=== PATIENT | female | born 1970 | race Caucasian/White ===

== ENCOUNTER → 2017-06-17 10:36 | Outpatient (CLI) | payer MEDICARE, SELFPAY ==
[2017-06-17 11:14] LABS: Absolute Lymphocyte Count 1.11 X10^3/ul (0.83-4.51); Absolute Neutrophil Count 3.6 X10^3/uL (2.0-7.7); Basophil# 0.01 X10^3/uL; Basophil% 0.2 % (0-1); Eosinophil# 0.03 X10^3/uL; Eosinophils% 0.6 % (0-5); Hematocrit 46.7 % (37-47); Hemoglobin 15.1 g/dl (12.0-15.0); Lymphocyte # 1.11 X10^3/ul (4.0); Lymphocyte % 21.1 % (19-41); Mean Corp Hgb Conc 32.3 g/gl (32-36); Mean Corpuscular Hgb 33.2 pg (27.0-32.0); Mean Corpuscular Volume 102.6 fL (81-99); Mean Platelet Vol. 10.3 fl (6.2-12.0); Monocyte# 0.45 X10^3/uL; Monocyte% 8.6 % (0-10); Neutrophil # 3.64 X10^3/uL (2.7-7.7); Neutrophil % 69.3 % (47-70); Platelet Count 195 K/mm3 (150-450); RBC Distribution Width CV 13.2 % (11.6-14.6); RBC Distribution Width SD 49.7 fl (35.1-43.9); Red Blood Count 4.55 M/mm3 (4.2-5.4); White Blood Count 5.3 K/mm3 (4.4-11.0)
[2017-06-17 11:15] LABS: POSITIVE COUNT NO; POSITIVE DIFFERENTIAL NO; POSITIVE MORPHOLOGY NO
[2017-06-17 11:49] LABS: ALB/GLOB Ratio 1.4 RATIO (0.9-2.4); AST(SGOT) 30 U/L (15-37); Alanine Aminotransfer ALT/SGPT 30 U/L (13-56); Albumin, Serum 3.8 g/dL (3.2-5.0); Alkaline Phosphatase 62 U/L (45-117); Anion Gap 3 (5-15); BUN 17 mg/dL (7-18); BUN/Creat Ratio 20.5 RATIO (10-20); Calcium,Total 8.8 mg/dL (8.5-10.1); Chloride 104 mmol/L (98-107); Creatinine, Serum 0.83 mg/dL (0.55-1.02); EST Glomerular Filtration Rate 78 mL/min (>60); Est Glom Filt Rate - Afr Amer 94 mL/min (>60); Ferritin 58 ng/mL (8-252); Globulin 2.8 g/dL (2.2-4.2); Glucose 89 mg/dL (74-106); Iron 67 ug/dL (50-170); Iron Binding Capacity,Total 329 ug/dL (250-450); Potassium 3.8 mmol/L (3.5-5.1); Protein, Total 6.6 g/dL (6.4-8.2); Sodium Level 139 mmol/L (136-145)
== END ==
PROVIDERS: Family Provider Family Medicine; PCP Family Medicine; Visit Provider Internal Medicine Rheumatology
DX: M06.4 Inflammatory polyarthropathy (principal); M35.00 Sjogren syndrome, unspecified; Z79.899 Other long term (current) drug therapy
CPT/HCPCS: 36415; 80053; 82728; 83540; 83550; 85025

== ENCOUNTER → 2017-09-09 08:46 | Outpatient (CLI) | payer MEDICARE, SELFPAY ==
[2017-09-09 09:29] LABS: Absolute Lymphocyte Count 1.17 X10^3/ul (0.83-4.51); Absolute Neutrophil Count 2.5 X10^3/uL (2.0-7.7); Basophil# 0.02 X10^3/uL; Basophil% 0.5 % (0-1); Eosinophil# 0.06 X10^3/uL; Eosinophils% 1.4 % (0-5); Hematocrit 44.4 % (37-47); Hemoglobin 14.8 g/dl (12.0-15.0); Lymphocyte # 1.17 X10^3/ul (4.0); Lymphocyte % 27.5 % (19-41); Mean Corp Hgb Conc 33.3 g/gl (32-36); Mean Corpuscular Hgb 34.6 pg (27.0-32.0); Mean Corpuscular Volume 103.7 fL (81-99); Mean Platelet Vol. 10.5 fl (6.2-12.0); Monocyte# 0.47 X10^3/uL; Neutrophil # 2.53 X10^3/uL (2.7-7.7); Neutrophil % 59.4 % (47-70); Platelet Count 188 K/mm3 (150-450); RBC Distribution Width CV 13.6 % (11.6-14.6); RBC Distribution Width SD 51.7 fl (35.1-43.9); Red Blood Count 4.28 M/mm3 (4.2-5.4); White Blood Count 4.3 K/mm3 (4.4-11.0)
[2017-09-09 09:32] LABS: POSITIVE COUNT NO; POSITIVE DIFFERENTIAL NO; POSITIVE MORPHOLOGY NO
[2017-09-09 10:02] LABS: ALB/GLOB Ratio 1.3 RATIO (0.9-2.4); AST(SGOT) 39 U/L (15-37); Alanine Aminotransfer ALT/SGPT 31 U/L (13-56); Albumin, Serum 3.6 g/dL (3.2-5.0); Alkaline Phosphatase 65 U/L (45-117); Anion Gap 6 (5-15); BUN 19 mg/dL (7-18); Calcium,Total 8.7 mg/dL (8.5-10.1); Chloride 104 mmol/L (98-107); Creatinine, Serum 0.79 mg/dL (0.55-1.02); EST Glomerular Filtration Rate 82 mL/min (>60); Est Glom Filt Rate - Afr Amer 100 mL/min (>60); Globulin 2.8 g/dL (2.2-4.2); Glucose 87 mg/dL (74-106); Potassium 4.1 mmol/L (3.5-5.1); Protein, Total 6.4 g/dL (6.4-8.2); Sodium Level 141 mmol/L (136-145)
== END ==
PROVIDERS: Family Provider Family Medicine; PCP Family Medicine; Visit Provider Internal Medicine Rheumatology
DX: M06.4 Inflammatory polyarthropathy (principal); Z79.899 Other long term (current) drug therapy; M35.00 Sjogren syndrome, unspecified; Z86.73 Personal history of transient ischemic attack (TIA), and cerebral infarction without residual deficits; N20.0 Calculus of kidney; D68.8 Other specified coagulation defects; E87.6 Hypokalemia; Z87.11 Personal history of peptic ulcer disease
CPT/HCPCS: 36415; 80053; 85025

== ENCOUNTER → 2017-11-24 09:19 | Outpatient (CLI) | payer MEDICARE, SELFPAY ==
[2017-11-24 10:26] LABS: Absolute Lymphocyte Count 0.98 X10^3/ul (0.83-4.51); Absolute Neutrophil Count 3.2 X10^3/uL (2.0-7.7); Basophil# 0.01 X10^3/uL; Basophil% 0.2 % (0-1); Eosinophil# 0.07 X10^3/uL; Eosinophils% 1.5 % (0-5); Hematocrit 45.9 % (37-47); Hemoglobin 15.5 g/dl (12.0-15.0); Lymphocyte # 0.98 X10^3/ul (4.0); Lymphocyte % 20.7 % (19-41); Mean Corp Hgb Conc 33.8 g/gl (32-36); Mean Corpuscular Hgb 34.4 pg (27.0-32.0); Mean Platelet Vol. 10.3 fl (6.2-12.0); Monocyte# 0.43 X10^3/uL; Monocyte% 9.1 % (0-10); Neutrophil # 3.24 X10^3/uL (2.7-7.7); Neutrophil % 68.3 % (47-70); Platelet Count 205 K/mm3 (150-450); RBC Distribution Width CV 13.9 % (11.6-14.6); RBC Distribution Width SD 51.9 fl (35.1-43.9); White Blood Count 4.7 K/mm3 (4.4-11.0)
[2017-11-24 10:30] LABS: POSITIVE COUNT NO; POSITIVE DIFFERENTIAL NO; POSITIVE MORPHOLOGY NO
[2017-11-24 10:52] LABS: ALB/GLOB Ratio 1.2 RATIO (0.9-2.4); AST(SGOT) 37 U/L (15-37); Alanine Aminotransfer ALT/SGPT 35 U/L (13-56); Albumin, Serum 3.5 g/dL (3.2-5.0); Alkaline Phosphatase 74 U/L (45-117); Anion Gap 6 (5-15); BUN 22 mg/dL (7-18); BUN/Creat Ratio 26.1 RATIO (10-20); Calcium,Total 8.5 mg/dL (8.5-10.1); Chloride 103 mmol/L (98-107); Creatinine, Serum 0.84 mg/dL (0.55-1.02); EST Glomerular Filtration Rate 76 mL/min (>60); Est Glom Filt Rate - Afr Amer 92 mL/min (>60); Glucose 85 mg/dL (74-106); Potassium 4.3 mmol/L (3.5-5.1); Protein, Total 6.5 g/dL (6.4-8.2); Sodium Level 142 mmol/L (136-145)
== END ==
PROVIDERS: Family Provider Family Medicine; PCP Family Medicine; Visit Provider Internal Medicine Rheumatology
DX: M06.4 Inflammatory polyarthropathy (principal); M35.00 Sjogren syndrome, unspecified; D68.8 Other specified coagulation defects; E87.6 Hypokalemia; N20.0 Calculus of kidney; Z79.899 Other long term (current) drug therapy; Z87.11 Personal history of peptic ulcer disease; Z86.73 Personal history of transient ischemic attack (TIA), and cerebral infarction without residual deficits
CPT/HCPCS: 36415; 80053; 85025

== ENCOUNTER → 2018-03-04 12:40 | Outpatient (CLI) | payer MEDICARE, SELFPAY ==
[2018-03-04 13:31] LABS: Absolute Lymphocyte Count 1.09 X10^3/ul (0.83-4.51); Absolute Neutrophil Count 5.5 X10^3/uL (2.0-7.7); Eosinophil# 0.05 X10^3/uL; Eosinophils% 0.7 % (0-5); Hematocrit 48.1 % (37-47); Hemoglobin 15.6 g/dl (12.0-15.0); Lymphocyte # 1.09 X10^3/ul (4.0); Lymphocyte % 15.2 % (19-41); Mean Corp Hgb Conc 32.4 g/gl (32-36); Mean Corpuscular Hgb 33.5 pg (27.0-32.0); Mean Corpuscular Volume 103.4 fL (81-99); Mean Platelet Vol. 11.2 fl (6.2-12.0); Neutrophil # 5.54 X10^3/uL (2.7-7.7); POSITIVE COUNT NO; POSITIVE DIFFERENTIAL NO; POSITIVE MORPHOLOGY NO; Platelet Count 193 K/mm3 (150-450); RBC Distribution Width SD 52.8 fl (35.1-43.9); Red Blood Count 4.65 M/mm3 (4.2-5.4); White Blood Count 7.2 K/mm3 (4.4-11.0)
[2018-03-04 13:58] LABS: ALB/GLOB Ratio 1.1 RATIO (0.9-2.4); AST(SGOT) 35 U/L (15-37); Alanine Aminotransfer ALT/SGPT 33 U/L (13-56); Albumin, Serum 3.4 g/dL (3.2-5.0); Alkaline Phosphatase 85 U/L (45-117); Anion Gap 4 (5-15); BUN 12 mg/dL (7-18); BUN/Creat Ratio 16.1 RATIO (10-20); Calcium,Total 8.3 mg/dL (8.5-10.1); Chloride 104 mmol/L (98-107); Creatinine, Serum 0.74 mg/dL (0.55-1.02); EST Glomerular Filtration Rate 88 mL/min (>60); Est Glom Filt Rate - Afr Amer 107 mL/min (>60); Glucose 88 mg/dL (74-106); Potassium 4.1 mmol/L (3.5-5.1); Protein, Total 6.4 g/dL (6.4-8.2); Sodium Level 140 mmol/L (136-145)
== END ==
PROVIDERS: Family Provider Family Medicine; PCP Family Medicine; Referring Provider Internal Medicine Rheumatology; Visit Provider Internal Medicine Rheumatology
DX: M06.4 Inflammatory polyarthropathy (principal); M35.00 Sjogren syndrome, unspecified; N20.0 Calculus of kidney; D68.8 Other specified coagulation defects; E87.6 Hypokalemia; Z79.899 Other long term (current) drug therapy; Z87.11 Personal history of peptic ulcer disease; Z86.73 Personal history of transient ischemic attack (TIA), and cerebral infarction without residual deficits
CPT/HCPCS: 36415; 80053; 85025

== ENCOUNTER → 2018-06-01 10:13 | Outpatient (CLI) | payer MEDICARE, SELFPAY ==
[2018-06-01 11:07] LABS: Absolute Lymphocyte Count 1.08 X10^3/ul (0.83-4.51); Absolute Neutrophil Count 4.4 X10^3/uL (2.0-7.7); Basophil# 0.01 X10^3/uL; Basophil% 0.2 % (0-1); Eosinophil# 0.07 X10^3/uL; Eosinophils% 1.2 % (0-5); Hemoglobin 16.4 g/dl (12.0-15.0); Lymphocyte # 1.08 X10^3/ul (4.0); Lymphocyte % 18.1 % (19-41); Mean Corp Hgb Conc 33.5 g/gl (32-36); Mean Corpuscular Hgb 34.2 pg (27.0-32.0); Mean Corpuscular Volume 102.1 fL (81-99); Mean Platelet Vol. 10.6 fl (6.2-12.0); Monocyte# 0.38 X10^3/uL; Monocyte% 6.4 % (0-10); Neutrophil # 4.43 X10^3/uL (2.7-7.7); Neutrophil % 73.9 % (47-70); Platelet Count 172 K/mm3 (150-450); RBC Distribution Width CV 13.4 % (11.6-14.6)
[2018-06-01 11:11] LABS: POSITIVE COUNT NO; POSITIVE DIFFERENTIAL NO; POSITIVE MORPHOLOGY NO
[2018-06-01 11:47] LABS: ALB/GLOB Ratio 1.3 RATIO (0.9-2.4); AST(SGOT) 38 U/L (15-37); Alanine Aminotransfer ALT/SGPT 37 U/L (13-56); Alkaline Phosphatase 72 U/L (45-117); Anion Gap 8 (5-15); BUN 22 mg/dL (7-18); BUN/Creat Ratio 27.3 RATIO (10-20); Calcium,Total 9.1 mg/dL (8.5-10.1); Chloride 102 mmol/L (98-107); Creatinine, Serum 0.81 mg/dL (0.55-1.02); EST Glomerular Filtration Rate 80 mL/min (>60); Est Glom Filt Rate - Afr Amer 97 mL/min (>60); Glucose 94 mg/dL (74-106); Sodium Level 143 mmol/L (136-145)
== END ==
PROVIDERS: Family Provider Family Medicine; PCP Family Medicine; Referring Provider Internal Medicine Rheumatology; Visit Provider Internal Medicine Rheumatology
DX: M06.4 Inflammatory polyarthropathy (principal); M35.00 Sjogren syndrome, unspecified; N20.0 Calculus of kidney; D68.8 Other specified coagulation defects; E87.6 Hypokalemia; Z79.899 Other long term (current) drug therapy; Z87.11 Personal history of peptic ulcer disease; Z86.73 Personal history of transient ischemic attack (TIA), and cerebral infarction without residual deficits
CPT/HCPCS: 36415; 80053; 85025

== ENCOUNTER → 2018-06-24 10:56 | Outpatient (CLI) | payer MEDICARE, SELFPAY ==
[2018-06-24 11:48] LABS: International Normalized Ratio 2.7
== END ==
PROVIDERS: Family Provider Family Medicine; PCP Family Medicine; Referring Provider Family Medicine; Visit Provider Family Medicine
DX: I67.89 Other cerebrovascular disease (principal)
CPT/HCPCS: 36415; 85610

== ENCOUNTER → 2018-08-26 08:40 | Outpatient (CLI) | payer MEDICARE, SELFPAY ==
[2018-08-26 09:55] LABS: Absolute Lymphocyte Count 1.07 X10^3/ul (0.83-4.51); Absolute Neutrophil Count 2.2 X10^3/uL (2.0-7.7); Basophil# 0.01 X10^3/uL; Basophil% 0.3 % (0-1); Eosinophil# 0.11 X10^3/uL; Eosinophils% 2.9 % (0-5); Hematocrit 50.8 % (37-47); Hemoglobin 16.7 g/dl (12.0-15.0); Lymphocyte # 1.07 X10^3/ul (4.0); Lymphocyte % 28.2 % (19-41); Mean Corp Hgb Conc 32.9 g/gl (32-36); Mean Corpuscular Hgb 32.4 pg (27.0-32.0); Mean Corpuscular Volume 98.6 fL (81-99); Mean Platelet Vol. 10.6 fl (6.2-12.0); Monocyte# 0.39 X10^3/uL; Monocyte% 10.3 % (0-10); Neutrophil # 2.21 X10^3/uL (2.7-7.7); Neutrophil % 58.3 % (47-70); POSITIVE COUNT NO; POSITIVE DIFFERENTIAL NO; POSITIVE MORPHOLOGY NO; Platelet Count 173 K/mm3 (150-450); RBC Distribution Width CV 13.2 % (11.6-14.6); RBC Distribution Width SD 47.8 fl (35.1-43.9); Red Blood Count 5.15 M/mm3 (4.2-5.4); White Blood Count 3.8 K/mm3 (4.4-11.0)
[2018-08-26 10:26] LABS: ALB/GLOB Ratio 1.3 RATIO (0.9-2.4); AST(SGOT) 31 U/L (15-37); Alanine Aminotransfer ALT/SGPT 28 U/L (13-56); Albumin, Serum 3.7 g/dL (3.2-5.0); Alkaline Phosphatase 75 U/L (45-117); Anion Gap 3 (5-15); BUN 15 mg/dL (7-18); BUN/Creat Ratio 18.3 RATIO (10-20); Calcium,Total 8.6 mg/dL (8.5-10.1); Chloride 106 mmol/L (98-107); Cholesterol 158 mg/dL (200); Creatinine, Serum 0.82 mg/dL (0.55-1.02); EST Glomerular Filtration Rate 79 mL/min (>60); Est Glom Filt Rate - Afr Amer 95 mL/min (>60); Globulin 2.8 g/dL (2.2-4.2); Glucose 76 mg/dL (74-106); High Density Lipoprotein 60 mg/dL; Potassium 4.3 mmol/L (3.5-5.1); Protein, Total 6.5 g/dL (6.4-8.2); Sodium Level 141 mmol/L (136-145); Triglycerides 83 mg/dL; Very Low Density Lipoprotein 17 mg/dL (5-40)
== END ==
PROVIDERS: Family Provider Family Medicine; PCP Family Medicine; Referring Provider Internal Medicine Rheumatology; Visit Provider Internal Medicine Rheumatology
DX: M06.4 Inflammatory polyarthropathy (principal); M35.00 Sjogren syndrome, unspecified; N18.9 Chronic kidney disease, unspecified; M32.9 Systemic lupus erythematosus, unspecified; M35.9 Systemic involvement of connective tissue, unspecified; D68.8 Other specified coagulation defects; E87.6 Hypokalemia; Z79.899 Other long term (current) drug therapy; Z87.11 Personal history of peptic ulcer disease; Z87.442 Personal history of urinary calculi; Z86.73 Personal history of transient ischemic attack (TIA), and cerebral infarction without residual deficits
CPT/HCPCS: 36415; 80053; 80061; 85025

== ENCOUNTER → 2018-10-02 12:56 | Outpatient (CLI) | payer MEDICARE, SELFPAY ==
--- NOTE | 2018-10-01 14:30 | LES_PTH ---
PATIENT: ERICH ALARCON LOC: [facility] U#:[id number] AGE/SX: 54/F ROOM: RE10/02/[address]: Dr. Jessika Apple MD : 1970 BED: DIS: SPEC #: [id number] RECD: 10/02/18 12:41 STATUS: CARLOS LITTLE #: [id number] RANJEET: 10/01/18 14:[address]: Jessika Apple DEPT: SURGICAL PATHOLOGY RECD BY: Nakita Ching ENTERED: 10/02/18 14:42 SP TYPE: Lesion OTHR DR: Dr. Davion Goldman MD Tissues: Skin of back, NOS Procedures: Surgery Specimen Level IV HEADER OPERATION: Excision skin lesion on back PRE-OP DIAGNOSIS: Skin lesion on back TISSUE SUBMITTED: Skin lesion on back MICROSCOPIC DIAGNOSIS Skin lesion of back, biopsy: Seborrheic keratosis. AM:mayur 10/05/18 MICROSCOPIC DESCRIPTION Slides are reviewed. GROSS DESCRIPTION Received is one container labeled with the patient's name and not further designated. The specimen consists of a piece of vigil-white skin measuring 0.8 x 0.5 cm and up to 0.3 cm in thickness. The skin surface shows a pigmented lesion occupying more than 95% of the skin surface. The specimen is inked and submitted entirely in one cassette. It will be sectioned at the time of embedding. / SJ:mayur 10/02/18 TC:5 [facility]: [id number]
== END ==
PROVIDERS: Family Provider Family Medicine; PCP Family Medicine; Referring Provider Surgery; Visit Provider Surgery
DX: L98.9 Disorder of the skin and subcutaneous tissue, unspecified (principal)
CPT/HCPCS: 88305

== ENCOUNTER → 2018-11-26 12:03 | Outpatient (CLI) | payer MEDICARE, SELFPAY ==
[2018-11-26 13:21] LABS: Absolute Lymphocyte Count 0.98 X10^3/uL (0.83-4.51); Absolute Neutrophil Count 8.5 X10^3/uL (2.0-7.7); Basophil# 0.02 X10^3/uL; Basophil% 0.2 % (0-1); Eosinophil# 0.03 X10^3/uL; Eosinophils% 0.3 % (0-5); Hematocrit 44.8 % (37-47); Hemoglobin 14.9 g/dL (12.0-15.0); Lymphocyte # 0.98 X10^3/ul (4.0); Lymphocyte % 9.6 % (19-41); Mean Corp Hgb Conc 33.3 g/dL (32-36); Mean Corpuscular Hgb 33.6 pg (27.0-32.0); Mean Corpuscular Volume 101.1 fL (81-99); Mean Platelet Vol. 10.4 fl (6.2-12.0); Monocyte# 0.67 X10^3/uL; Monocyte% 6.6 % (0-10); NRBC Flagged by Analyzer 0 % (0-5); Neutrophil # 8.48 X10^3/uL (2.7-7.7); Neutrophil % 82.9 % (47-70); Platelet Count 172 K/mm3 (150-450); RBC Distribution Width CV 13.2 % (11.6-14.6); RBC Distribution Width SD 49.6 fl (35.1-43.9); Red Blood Count 4.43 M/mm3 (4.2-5.4); White Blood Count 10.2 K/mm3 (4.4-11.0)
[2018-11-26 13:47] LABS: ALB/GLOB Ratio 1.2 RATIO (0.9-2.4); AST(SGOT) 33 U/L (15-37); Alanine Aminotransfer ALT/SGPT 27 U/L (13-56); Albumin, Serum 3.4 g/dL (3.2-5.0); Alkaline Phosphatase 65 U/L (45-117); Anion Gap 3 (5-15); BUN 23 mg/dL (7-18); BUN/Creat Ratio 25.7 RATIO (10-20); Calcium,Total 8.7 mg/dL (8.5-10.1); Chloride 105 mmol/L (98-107); EST Glomerular Filtration Rate 71 mL/min (>60); Est Glom Filt Rate - Afr Amer 86 mL/min (>60); Globulin 2.9 g/dL (2.2-4.2); Glucose 91 mg/dL (74-106); Potassium 4.2 mmol/L (3.5-5.1); Protein, Total 6.3 g/dL (6.4-8.2); Sodium Level 139 mmol/L (136-145)
== END ==
PROVIDERS: Family Provider Family Medicine; PCP Family Medicine; Referring Provider Internal Medicine Rheumatology; Visit Provider Internal Medicine Rheumatology
DX: M06.4 Inflammatory polyarthropathy (principal); M35.00 Sjogren syndrome, unspecified; N20.0 Calculus of kidney; E87.6 Hypokalemia; D68.8 Other specified coagulation defects; Z79.899 Other long term (current) drug therapy; Z86.73 Personal history of transient ischemic attack (TIA), and cerebral infarction without residual deficits; Z87.11 Personal history of peptic ulcer disease
CPT/HCPCS: 36415; 80053; 85025

== ENCOUNTER → 2018-12-30 09:55 | Outpatient (CLI) | payer MEDICARE, SELFPAY ==
[2018-12-30 11:19] LABS: Vitamin D,25 Hydroxy 33.5 ng/mL (29.95-100.01)
[2018-12-30 11:21] LABS: T3 Uptake 33 % (30-39); T4 Total, Thyroxin 10.2 ug/dL (4.8-13.9); T7 / Free Thyroxin Index 3.4 (1.4-4.5); Thyroid Stim Hormone (TSH) 0.69 uIU/mL (0.358-3.74)
[2018-12-31 13:04] LABS: Thyroid Peroxidase AB 12 IU/mL (0-34)
== END ==
PROVIDERS: Family Provider Family Medicine; PCP Family Medicine; Referring Provider Obstetrics & Gynecology; Visit Provider Obstetrics & Gynecology
DX: N95.1 Menopausal and female climacteric states (principal); R53.81 Other malaise; R53.83 Other fatigue
CPT/HCPCS: 36415; 82306; 84436; 84443; 84479; 86376

== ENCOUNTER 2019-02-08 13:42 | Day surgery (SDC) | payer MEDICARE, SELFPAY ==
--- NOTE | 2019-02-07 09:47 | PCM.HP.BLA ---
History and Physical Date of Admission: 02/08/19 Magalie Strauss 1970 ? ? REFERRING PHYSICIAN: Davion Goldman MD ? CHIEF COMPLAINT: Abdominal Pain ? HPI: The patient is a 48 year old female presents with right upper quadrant and epigastric abdominal pain. This had been going on intermittently for years, however, in the past few weeks, it has become more constant and more severe. Lately, she has noted left upper quadrant abdominal pain as well. No aggravating factors. Denies fevers. ? US RUQ 01/12/19 IMPRESSION: Gallbladder wall thickening which is most pronounced in the fundus. ?Stone and sludge within it. ?Adenomyomatosis is a diagnostic possibility. ?HIDA scan may be helpful for further evaluation of clinically indicated. If no additional imaging at this time, follow up sonographically in 3-6 Months. Right nephrolithiasis. ? NM hepatobiliary scan 01/22/19 IMPRESSION: 1. Gallbladder is visualized. ?Patent cystic and common bile ducts. No scintigraphic evidence of ?acute cholecystitis. 2. ?Decreased gallbladder ejection fraction suggestive of chronic cholecystitis/gallbladder dyskinesia. ? Patient has nausea but denies emesis. She does take omeprazole on a regular basis and denies acid indigestion or reflux with this. ? ? PAST MEDICAL HISTORY ? Chronic kidney disease, stage I ? ? Dysmenorrhea ? ? Excessive or frequent menstruation ? ? Heavy periods ? Hypopotassemia ? ? Non-celiac gluten sensitivity ? ? PMH - PAST MEDICAL HISTORY OF ? ? stroke ? PMH - PAST MEDICAL HISTORY OF ? ? uterine fibroids ? Sicca syndrome (HCC) ? ? PAST SURGICAL HISTORY ? COLONOSCOPY ? 04/04 ? REPORTEDLY NEGATIVE FOR SOURCE OF HEM + STOOLS ? HYSTEROSCOPY BX W/WO D&C ? 07/06 ? for menorrhagia, fibroids ? LIGATE FALLOPIAN TUBE ? 1994 ? PAST SURGICAL HISTORY OF ? 1993 and 2001 ? SINUS SURGERY X 2 (1st in [place], 2nd in [place]) ? PAST SURGICAL HISTORY OF ? 2006 ? LIP BX, NEG FOR SJOGREN'S, but clinically positive ? SKIN BIOPSY HX ? ? ? back ? THERMAL ENDOMETRIAL ABLATION ? 08/2010 ? TOTAL ABDOM HYSTERECTOMY ? 10/11/10 ? KELECHI ? ? Current Outpatient Medications: enoxaparin (LOVENOX) 30 mg/0.3 mL injection Inject 0.3 mL subcutaneously every 12 hours for 3 days. warfarin (COUMADIN) 5 mg tablet 15 mg Friday, 10 mg all other days or as directed warfarin (COUMADIN) 1 mg tablet 15 mg Friday, 10 mg all other days or as directed warfarin (COUMADIN) 2 mg tablet 15 mg Friday, 10 mg all other days or as directed warfarin (COUMADIN) 5 mg tablet 15 mg Friday, 10 mg all other days or as directed cholecalciferol, Vitamin D3, (VITAMIN D3) 50,000 unit cap capsule Take 1 capsule by mouth one time a week. estradiol (VIVELLE-DOT) 0.05 mg/24 hr Apply 1 Patch as directed twice a week. TWICE WEEKLY mirabegron (MYRBETRIQ) 25 mg Tb24 Take 1 tablet by mouth once daily. spironolactone (ALDACTONE) 25 mg tablet Take 1 tablet by mouth once daily. Hydrochlorothiazide 12.5 mg capsule Take 1 capsule by mouth once daily. oxybutynin (DITROPAN) 5 mg tablet Take 1 tablet by mouth twice daily. SUMAtriptan (IMITREX) 50 mg tablet Take 1 tablet by mouth as needed. Levocetirizine (XYZAL) 5 mg tablet Take 5 mg by mouth. potassium citrate ER (UROCIT-K) 10 mEq (1,080 mg) TbER Take 6 tablets by mouth once daily. omeprazole (PRILOSEC) 20 mg capsule Take 1 capsule by mouth once daily. potassium chloride ER (K-DUR, KLOR-CON) 20 mEq tablet Take 1 tablet by mouth twice daily. methotrexate 2.5 mg tablet Take 8 tablets po one time only for 1 dose, Friday fluticasone (FLONASE) 50 mcg/actuation nasal spray Use 2 Sprays in each nostril twice daily as needed. Rinse mouth after use. leucovorin calcium 10 mg tablet Take 2.5 tablets by mouth every Friday. prednisoLONE acetate (PRED FORTE, ECONOPRED PLUS) 1 % ophthalmic suspension Use 1 Drop in both eyes four times daily. GLUCOSAMINE HCL/GLUC WIGGINS (GLUCOSAMINE COMPLEX ORAL) Take by mouth. aspirin, enteric coated 81 mg ORAL EC tablet Take 1 tablet by mouth once daily. hydroxychloroquine sulfate(PLAQUENIL 200 MG TAB) Take one(1) tablet two(2) times daily. FOLIC ACID 1 MG TAB Take one(1) tablet two(2) times daily. ascorbic acid(VITAMIN C 500 MG TAB) Take one(1) tablet two(2) times daily. calcium carbonate/vitamin d3(CALCIUM 600 WITH VITAMIN D3 600 MG (1,500)-200 UNIT TAB) Take one(1) tablet daily. multivitamins(DAILY MULTIPLE TAB) Take one(1) tablet daily. docusate sodium(STOOL SOFTENER 100 MG CAP) Take one(1) tablet two(2) times daily. ? ? ALLERGIES: Bee Sting; Amoxicillin; Augmentin [Amoxicillin-Pot Clavulanate]; Bactrim [Sulfamethoxazole-Trimethoprim]; Black Pepper; Ceclor [Cefaclor]; Cipro [Ciprofloxacin]; Codeine; Erythromycin; Grass Pollen; Horse Hair And Dander; Ivory Soap [Soap]; Latex; Mold; Silicone; Vancomycin; Wheat ? PERSONAL HISTORY: Social History Socioeconomic History Marital status: Spouse name: lashonda Number of children: 0 Years of education: 16 TOB use - denies ? FAMILY HISTORY ? Stroke Father ? ? PFO ? Heart Father ? ? rhythm/EP issues ? Hypertension Father ? ? Lipids Mother ? ? other (MS [Other]) Mother ? ? Diabetes Maternal Aunt ? ? Stroke Other ? ? MULTIPLE ON Her FATHER'S FAMILY, with strokes followed by Heart Failure ? other (Other [Other]) Mother ? ? Autoimmune disorder ? other (polymylagia [Other]) Mother ? ? ? REVIEW OF SYSTEMS: ?General:???The patient NOTES fatigue, denies weight loss, denies weight gain, NOTES feeling hot, and NOTES feelings of cold. ?Eyes: ?The patient denies glaucoma, denies eye injury/surgery, does not wear glasses or contacts. ?Ear/Nose/Throat: ?The patient NOTES allergies, denies hayfever, denies ear infections, and NOTES bloody noses. ?Cardiovascular: ?The patient denies chest pain, denies heart disease, denies high blood pressure,denies cardiac stent, denies prior heart attack, denies irregular heart beat, denies high cholesterol, ?denies poor circulation, denies heart failure, other cardiac issues, NOTES claudication, NOTES cold feet, denies peripheral arterial stent. ?Respiratory: ?The patient denies tuberculosis, denies pneumonia, denies frequent cough, denies pulmonary embolism, denies shortness of breath, and denies coughing up blood. ?Gastrointestinal: ?The patient denies difficulty swallowing, denies acid reflux, denies ulcers, denies vomiting, denies jaundice/hepatitis, denies gallbladder problems, denies black or tarry stools, denies hemorrhoids, denies bleeding from rectum, denies diverticulitis, NOTES constipation, denies diarrhea, denies loss of stool control, and denies hernias. ?Kidney/Bladder: ?The patient NOTES kidney stones, NOTES urine infections, and NOTES bloody urine. ?Skin: ?The patient denies a history of skin cancer, denies bleeding/changing moles, and denies a history of skin rash. ?Neurologic: ?The patient denies a history of epilepsy/convulsions, NOTES headaches, denies head/spinal injuries, and NOTES stroke/TIA. ?Psychiatric: ?The patient denies psychiatric medications, denies depression, and denies voices, denies substance abuse. ?Endocrine: ?The patient denies thyroid disorders, denies diabetes, and denies hormonal problems. ?Hematologic: ?The patient NOTES a history of bruising, NOTES bleeding, and denies anemia, denies blood clots. ?Infections: ?The patient denies a history of measles and mumps, denies rheumatic fever, and denies sexually transmitted diseases. ?Musculoskeletal: ?The patient denies back pain/injury, denies back problems, denies sciatica, denies knee/foot trouble, NOTES arthritis, or denies gout. ? PHYSICAL EXAMINATION: General: The patient is 48 year old female, well nourished, well hydrated in no acute distress. The patient is oriented to time, place, and person. VITALS: Blood pressure 114/60, pulse 74, temperature 36.4 ?C (97.5 ?F), temperature source Temporal Artery, resp. rate 16, height 170.2 cm (5' 7), weight 69.4 kg (153 lb), last menstrual period 09/15/2010, SpO2 97 %. Body mass index is 23.96 kg/m?. Head ? Normocephalic. EOM intact with sclera clear and no icterus noted. Mouth with mucus membranes moist. Neck - supple with no jugular venous distention noted. Trachea is midline. No masses noted. Lungs ? clear to auscultation. Normal breath sounds. No rales/rhonchi/wheezing noted. No labored breathing noted, such as retractions. No cough heard. Heart ? normal S1 and S2 auscultated. No rubs/clicks/murmurs noted. Regular rate. Abdomen ? soft and benign. Normal bowel sounds, no peritoneal signs. No abdominal bruits noted. No distention noted. No masses noted. Extremities ? no calf tenderness noted. No pitting edema noted. Skin ? normal skin integrity. Neurological ? gait normal, no focal deficits noted. Psych ? calm and appropriate, RADIOLOGIC STUDIES: As Noted ? ? IMPRESSION: abdominal pain as above, cholelithiasis with probable cholecystitis ? PLAN: I have discussed the above with the patient and her who is present with her. I have offered laparoscopic cholecystectomy, possible cholangiograms. I have explained the procedure to the patient. I have counseled the patient as to the risks of the procedure, including but not limited to: infection, bleeding, injury to any blood vessels/nerves, scar tissue, injury to any intrabdominal organs, injury to bowel/bladder, injury to the common bile duct/biliary tree, bile leakage, intraabdominal abscess/bleeding, hernias at incisional sites, wound infections, complications of anesthesia, etc. ? the patient understands. The patient wishes to proceed. I have answered all questions to the patient?s satisfaction and the patient has no further questions. . Diagnoses: (K80.10) Calculus of gallbladder with chronic cholecystitis without obstruction (primary encounter diagnosis) (Z79.01) Anticoagulated on Coumadin (D68.59) Hypercoagulable state (HCC) Return to Clinic: The patient is instructed to follow-up with me after the procedure.
[2019-02-08] VITALS (8 sets, daily range): BP systolic 83–126; BP diastolic 45–54; PULSE 65–91; RESP 16; TEMP 36.6–37.3; O2SAT 95–100; BMI 23.7
--- NOTE | 2019-02-08 14:02 | EKG12_ITS ---
Test Reason : PRE-OP Blood Pressure : / mmHG Vent. Rate : 063 BPM Atrial Rate : 063 BPM P-R Int : 120 ms QRS Dur : 074 ms QT Int : 444 ms P-R-T Axes : 070 047 049 degrees QTc Int : 454 ms Normal sinus rhythm with sinus arrhythmia Normal ECG When compared with ECG of 21-MAY-2011 00:44, No significant change was found Confirmed by FIONA BLANCO ([id number]), digital editor CHARITY ORELLANA ([id number]) on 02/12/2019 10:27:29 AM Referred By: Jessika Apple Confirmed By:FIONA BLANCO
[2019-02-08] MEDS: Lactated Ringers 1,000 ML 75 ML IV (14:49)
--- NOTE | 2019-02-08 15:15 | GALL_PTH ---
PATIENT: ERICH ALARCON [place] [facility] [place][id number] AGE/SX: 48/F ROOM: RE02/08/[address]: Dr. Jessika Apple MD : 1970 BED: DIS: 02/08/2019 SPEC #: [id number] RECD: 02/09/19 08:42 STATUS: CARLOS LITTLE #: [id number] RANJEET: 02/08/19 15:[address]: Jessika Apple DEPT: SURGICAL PATHOLOGY RECD BY: Cash Gil ENTERED: 02/09/19 10:02 SP TYPE: ROBB SOTELO DR: Dr. Davion Goldman MD Tissues: Gallbladder, NOS Procedures: Surgery Specimen Level III HEADER OPERATION: Laparoscopic cholecystectomy with IOC PRE-OP DIAGNOSIS: Abdominal pain; cholelithiasis with probable cholecystitis TISSUE SUBMITTED: Gallbladder MICROSCOPIC DIAGNOSIS Gallbladder, cholecystectomy: Chronic cholecystitis with Rokitansky-Aschoff sinuses. AM:mayur 02/10/19 MICROSCOPIC DESCRIPTION Slides are reviewed. GROSS DESCRIPTION Received is one container labeled with the patient's name and designated gallbladder. The specimen consists of a gallbladder measuring 7 x 3 x 2.5 cm. The external surface is smooth and glistening. Focally, it is granular, hemorrhagic and contains cautery artifact. The lumen of the gallbladder contains yellow-green mucoid bile and no calculi. The mucosa is bile-stained and without any mass lesions. The gallbladder wall averages 0.2 cm in thickness and is free of mass lesions. Director Patient Financial Services sections of the gallbladder and the cystic duct are submitted in one cassette. / AM:mayur 02/09/19 TC:3 CPT: 49332
--- NOTE | 2019-02-08 15:45 | PCM.OPRPT ---
Report of Operation Date of Procedure: 02/08/19 Pre-Operative Diagnosis: cholelithiasis Post-Operative Diagnosis: cholelithiasis, chronic cholecystitis Surgery/Procedure Performed:: laparoscopic cholecystectomy with cholangiograms Description of Surgical Findings:: intraoperative cholangiograms - traditional chinese herbalist: Rhona Luis Type of Anesthesia:: General Anesthesiologist: Lisset Mcclellan Specimen's removed: gallbladder and contents Estimated Blood Loss (mL): < 10 ml Fluids Replaced: 1000 ml RL Description of Procedure: After informed consent was given, the patient was brought to the Operating Room. Appropriate time out protocol was followed. She was then placed in the supine position. The patient was then placed under general endotracheal anesthesia. The abdomen was then prepped with a sterile surgical skin preparation and sterile surgical drapes were placed. The infraumbilical skin fold was grasped with penetrating clamps and the skin and subcutaneous tissues were infiltrated with 0.5% marcaine with epinephrine. A transverse skin incision was then made with a 15 blade scalpel. The anterior abdominal wall was elevated and a Veress needle was carefully inserted into the intraabdominal cavity. It was checked to be in the proper position with a normal saline drop test. A CO2 pneumoperitoneum was then created. Once this was achieved, then the Veress needle was removed and an 11mm trocar was placed in its stead. A 10mm laparoscope was then inserted into the trocar and careful attention was directed to the intraabdominal contents. There was no evidence of injury to any intraabdominal organs from insertion of the Veress needle or the trocar. Under direct visualization, a 5mm subxiphoid trocar and two lateral 5mm right subcostal trocars were placed. The skin and subcutaneous tissues at these sites were infiltrated with 0.5% marcaine with epinephrine prior to placement of these trocars. Attention was then directed to the right upper quadrant of the abdomen. Graspers were placed in the lateral trocars to grasp the distal aspect of the gallbladder and direct it cephalad and to grasp the gallbladder at Garcia?s pouch and direct it laterally. Dissection then began on the proximal gallbladder continuing down to the area of the triangle of Calot to bluntly dissect out the cystic duct. The neck of the gallbladder was identified and blunt dissection continued to dissect out a segment of the cystic duct. A clip was then placed on the neck of the gallbladder. A small ductotomy was then made. A Ranfac catheter was brought in through a separate skin incision and placed into the cystic duct. An intraoperative cholangiogram was performed under fluoroscopy. The xray revealed no lesions in the common bile duct, arborization of the biliary tree, and good flow into the duodenum. The Ranfac catheter was then removed and two clips were placed proximal to the ductotomy and the cystic duct was then transected. The cystic artery was visualized and bluntly isolated and then two clips were placed proximally and one clip distally and then it was transected between the proximal and distal clips. The gallbladder was then from the liver bed using electrocautery and thus able to be brought out of the umbilical port. It was then forwarded to pathology for analysis. The liver bed was carefully examined. There was no evidence of bile leakage or bleeding. The cystic duct stump and cystic artery stump had their clips intact and there was no evidence of bile leakage or bleeding. The remainder of the abdomen was grossly normal. The CO2 was released and all trocars removed intact. The periumbilical fascia was approximated with a sicchy-[id number]-[id number] 0 vicryl suture. All skin incision were closed with 4-0 monocryl in a subdermal fashion. Cavilol and Steristrips were used to reinforce the skin closure. Sterile dressings were applied to all wounds. The patient was extubated and brought to the Recovery Room in stable condition. - Complications none noted - Admit VTE Documentation VTE Present on Admission: Yes VTE Mechan Device Prophylaxis: SCD's
--- NOTE | 2019-02-08 16:00 | RAD_ITS ---
STUDY: INTRAOPERATIVE CHOLANGIOGRAM. REASON FOR EXAM: Female, 48 years old. Laparoscopic cholecystectomy. RADIATION DOSAGE (If Supplied By Facility): CTDIvol = ( ) mGy, DLP = ( ) mGycm. Individualized dose optimization techniques were used for this CT.? FLUOROSCOPY TIME (if supplied): ( 11 seconds ) minutes/seconds TECHNIQUE: An intraoperative carotid mammogram was performed by the surgeon. A cine loop was submitted for interpretation. COMPARISON: None. FINDINGS: The common bile duct is not dilated. No intraluminal filling defect is seen. There is free flow of contrast into the duodenum. RAD/Cholangiogram/ O R,Initial IMPRESSION: Unremarkable intraoperative cholangiogram. Electronically Signed: Girma Jean-Baptiste, at 8:15 EDT , Service support ,
[2019-02-08 16:26] LABS: Prothrombin Time Fingerstick 13.9 SEC (11.9-14.4)
[2019-02-08] MEDS: Bupiv/Epi 0.5% Mpf 30 ML Vial (16:55)
--- NOTE | 2019-02-08 17:07 | DCINST_ITS ---
Discharge Diet: No Restrictions Discharge Activity: Return to Normal Activity, May not drive while taking narcotic pain medications. Lifting Restrictions: no lifting greater than 20 pounds for two weeks Call your doctor if your incision/area has: Continuous Slow Oozing, Foul Smelling Discharge Call your doctor if you observe: Fever of 101 or Higher Additional Dressing/Incision Instructions:: Leave dressings in place. May get wet in shower. Do not scrub on dressings. Do not soak - no tub baths/swimming Allergies/Adverse Reactions: Allergies amoxicillin Allergy (Verified 02/05/19 09:09) Hives bee venom protein (honey bee) Allergy (Verified 02/05/19 09:09) Hives black pepper Allergy (Verified 02/05/19 09:09) Food Allergy cefaclor [From Ceclor] Allergy (Verified 02/05/19 09:09) Hives ciprofloxacin [From Cipro] Allergy (Verified 02/05/19 09:09) Hives clavulanic acid [From Augmentin] Allergy (Verified 02/05/19 09:09) Hives dog dander Allergy (Verified 02/05/19 09:09) Itching erythromycin base Allergy (Verified 02/05/19 09:09) Hives grass pollen Allergy (Verified 02/05/19 09:09) Itching horse dander Allergy (Verified 02/05/19 09:09) Itching latex Allergy (Verified 02/05/19 09:09) Rash silicone Allergy (Verified 02/05/19 09:09) Other second degree tate sulfamethoxazole [From Bactrim] Allergy (Verified 02/05/19 09:09) Swelling trimethoprim [From Bactrim] Allergy (Verified 02/05/19 09:09) Swelling vancomycin Allergy (Verified 02/05/19 09:09) Shortness of breath wheat Allergy (Verified 02/05/19 09:10) Food Allergy ivory soap Allergy (Uncoded 02/05/19 09:10) Angioedema Medications to take at Discharge Aspirin [Aspir 81] 81 mg PO DAILY 02/05/19 Calcium Carbonate/Vitamin D3 [Calcium 600-Vit D3 500 Softgel] 1 ea PO DAILY 02/05/19 Enoxaparin Sodium [Lovenox] 30 mg SQ BID 02/05/19 Ergocalciferol [Vitamin D] 50,000 unit PO Q7D 02/05/19 Estradiol [Vivelle-Dot, Estraderm] 0.05 mg TRANSDERM. .2X/WEEK 02/05/19 Folic Acid 1 mg PO BID 02/05/19 Hydrochlorothiazide 12.5 mg PO DAILY 02/05/19 Hydroxychloroquine Sulfate [Plaquenil] 200 mg PO BID 02/05/19 Levocetirizine Dihydrochloride [Xyzal] 5 mg PO DAILY 02/05/19 Methotrexate Sodium [Methotrexate] 20 mg PO WIGGINS 02/05/19 Multivit,Calc,Mins/Iron/Folic [Women's Daily Formula Caplet] 1 ea PO DAILY 02/05/19 Omeprazole [Prilosec] 20 mg PO QHS 02/05/19 Oxybutynin [Ditropan] 5 mg PO BID 02/05/19 Potassium Chloride [K-Dur] 20 meq PO BID 02/05/19 Potassium Citrate [Urocit-K] 3 tab PO BID 02/05/19 Spironolactone [Aldactone] 25 mg PO DAILY 02/05/19 Warfarin [Coumadin ([facility])] 10 mg PO SUMOTUWETHFR 02/05/19 Warfarin [Coumadin ([facility])] 15 mg PO SA 02/05/19 leucovorin tablet 10 mg PO MO 02/05/19 Hydrocodone Bitart/Apap 5-325 [[place] 5MG-325MG] 1 tab PO Q8H PRN PRN 5 Days #15 tab 02/08/19 The following prescriptions were given: Hydrocodone Bitart/Apap 5-325 [[place] 5MG-325MG] 1 tab PO Q8H PRN PRN 5 Days #15 tab PRN Reason: Pain Prescription Printed Primary Care Physician: Davion Goldman MD [Primary Care Provider] - Test Results: Test results from this visit will be discussed in further detail at your follow- up appointment, if applicable. Please Follow Up With: Jessika Apple MD - call When: to be seen in 7-10 days, please call for date and time, thanks
[2019-02-08] MEDS: proMETHazine 25 MG/ML Syringe 12.5 MG IV (17:35)
== END 2019-02-08 20:55 | disposition home or self-care (01) ==
LOC: SDC 13:54 → AC 13:57
PROVIDERS: Family Provider Family Medicine; PCP Family Medicine; Referring Provider Surgery; Visit Provider Surgery
PROC: (CPT 47610; principal; 2019-02-08 14:55)
DX: K80.10 Calculus of gallbladder with chronic cholecystitis without obstruction (principal); K82.8 Other specified diseases of gallbladder; D68.59 Other primary thrombophilia; Q61.5 Medullary cystic kidney; I69.354 Hemiplegia and hemiparesis following cerebral infarction affecting left non-dominant side; I69.311 Memory deficit following cerebral infarction; N18.1 Chronic kidney disease, stage 1; M35.00 Sjogren syndrome, unspecified; K90.41 Non-celiac gluten sensitivity; E87.6 Hypokalemia; K21.9 Gastro-esophageal reflux disease without esophagitis; Z79.899 Other long term (current) drug therapy; Z79.01 Long term (current) use of anticoagulants; Z79.82 Long term (current) use of aspirin; Z88.5 Allergy status to narcotic agent; Z88.1 Allergy status to other antibiotic agents; Z88.0 Allergy status to penicillin; Z88.2 Allergy status to sulfonamides
CPT/HCPCS: 00790; 47563; 36416; 74300; 76000; 85610; 88304; 93005; J7120; J2405

== ENCOUNTER → 2019-02-24 08:13 | Outpatient (CLI) | payer MEDICARE, SELFPAY ==
[2019-02-08 13:45] VITALS: BMI 23.7
[2019-02-24 10:24] LABS: Absolute Lymphocyte Count 1.12 X10^3/uL (0.83-4.51); Absolute Neutrophil Count 5.2 X10^3/uL (2.0-7.7); Basophil# 0.02 X10^3/uL; Basophil% 0.3 % (0-1); Eosinophil# 0.08 X10^3/uL; Eosinophils% 1.1 % (0-5); Hematocrit 46.7 % (37-47); Hemoglobin 15.4 g/dL (12.0-15.0); Lymphocyte # 1.12 X10^3/ul (4.0); Lymphocyte % 16.1 % (19-41); Mean Corpuscular Hgb 33.4 pg (27.0-32.0); Mean Corpuscular Volume 101.3 fL (81-99); Mean Platelet Vol. 10.5 fl (6.2-12.0); Monocyte# 0.57 X10^3/uL; Monocyte% 8.2 % (0-10); NRBC Flagged by Analyzer 0 % (0-5); Neutrophil # 5.16 X10^3/uL (2.7-7.7); Platelet Count 228 K/mm3 (150-450); RBC Distribution Width CV 12.9 % (11.6-14.6); Red Blood Count 4.61 M/mm3 (4.2-5.4)
[2019-02-24 10:57] LABS: ALB/GLOB Ratio 1.1 RATIO (0.9-2.4); AST(SGOT) 28 U/L (15-37); Alanine Aminotransfer ALT/SGPT 31 U/L (13-56); Albumin, Serum 3.4 g/dL (3.2-5.0); Alkaline Phosphatase 69 U/L (45-117); Anion Gap 4 (5-15); BUN 22 mg/dL (7-18); BUN/Creat Ratio 26.2 RATIO (10-20); Calcium,Total 8.7 mg/dL (8.5-10.1); Chloride 104 mmol/L (98-107); Creatinine, Serum 0.84 mg/dL (0.55-1.02); EST Glomerular Filtration Rate 76 mL/min (>60); Est Glom Filt Rate - Afr Amer 93 mL/min (>60); Glucose 72 mg/dL (74-106); Potassium 4.4 mmol/L (3.5-5.1); Protein, Total 6.4 g/dL (6.4-8.2); Sodium Level 141 mmol/L (136-145)
== END ==
PROVIDERS: Family Provider Family Medicine; PCP Family Medicine; Referring Provider Internal Medicine Rheumatology; Visit Provider Internal Medicine Rheumatology
DX: M06.4 Inflammatory polyarthropathy (principal); M35.00 Sjogren syndrome, unspecified; N20.0 Calculus of kidney; D68.8 Other specified coagulation defects; E87.6 Hypokalemia; Z79.899 Other long term (current) drug therapy; Z87.11 Personal history of peptic ulcer disease; Z86.73 Personal history of transient ischemic attack (TIA), and cerebral infarction without residual deficits
CPT/HCPCS: 36415; 80053; 85025

== ENCOUNTER → 2019-05-19 09:05 | Outpatient (CLI) | payer MEDICARE, SELFPAY ==
[2019-02-08 13:45] VITALS: BMI 23.7
[2019-05-19 09:51] LABS: Absolute Lymphocyte Count 1.34 X10^3/uL (0.83-4.51); Basophil# 0.02 X10^3/uL; Basophil% 0.3 % (0-1); Eosinophil# 0.07 X10^3/uL; Eosinophils% 1.2 % (0-5); Hematocrit 47.8 % (37-47); Hemoglobin 15.7 g/dL (12.0-15.0); Lymphocyte # 1.34 X10^3/ul (4.0); Lymphocyte % 22.1 % (19-41); Mean Corp Hgb Conc 32.8 g/dL (32-36); Mean Corpuscular Hgb 33.6 pg (27.0-32.0); Mean Corpuscular Volume 102.4 fL (81-99); Mean Platelet Vol. 10.3 fl (6.2-12.0); Monocyte# 0.59 X10^3/uL; Monocyte% 9.8 % (0-10); NRBC Flagged by Analyzer 0 % (0-5); Neutrophil # 4.01 X10^3/uL (2.7-7.7); Neutrophil % 66.3 % (47-70); Platelet Count 189 K/mm3 (150-450); RBC Distribution Width CV 13.2 % (11.6-14.6); Red Blood Count 4.67 M/mm3 (4.2-5.4); White Blood Count 6.1 K/mm3 (4.4-11.0)
[2019-05-19 10:34] LABS: ALB/GLOB Ratio 1.2 RATIO (0.9-2.4); AST(SGOT) 33 U/L (15-37); Alanine Aminotransfer ALT/SGPT 34 U/L (13-56); Albumin, Serum 3.6 g/dL (3.2-5.0); Alkaline Phosphatase 72 U/L (45-117); Anion Gap 1 (5-15); BUN 19 mg/dL (7-18); BUN/Creat Ratio 20.1 RATIO (10-20); Calcium,Total 9.2 mg/dL (8.5-10.1); Chloride 107 mmol/L (98-107); Creatinine, Serum 0.94 mg/dL (0.55-1.02); EST Glomerular Filtration Rate 67 mL/min (>60); Est Glom Filt Rate - Afr Amer 81 mL/min (>60); Globulin 2.9 g/dL (2.2-4.2); Glucose 85 mg/dL (74-106); Potassium 3.9 mmol/L (3.5-5.1); Protein, Total 6.5 g/dL (6.4-8.2); Sodium Level 141 mmol/L (136-145)
== END ==
PROVIDERS: PCP Family Medicine; Referring Provider Internal Medicine Rheumatology; Visit Provider Internal Medicine Rheumatology
DX: M06.4 Inflammatory polyarthropathy (principal); M35.00 Sjogren syndrome, unspecified; N20.0 Calculus of kidney; D68.8 Other specified coagulation defects; E87.6 Hypokalemia; Z87.11 Personal history of peptic ulcer disease; Z86.73 Personal history of transient ischemic attack (TIA), and cerebral infarction without residual deficits
CPT/HCPCS: 36415; 80053; 85025

== ENCOUNTER → 2019-05-28 12:36 | Outpatient (CLI) | payer MEDICARE, SELFPAY ==
[2019-02-08 13:45] VITALS: BMI 23.7
--- NOTE | 2019-05-28 12:38 | CT_ITS ---
STUDY: CT ABDOMEN AND PELVIS WITH CONTRAST REASON FOR EXAM: Female, 49 years old. LLQ PAIN X 1 YEAR. PRIOR PARTIAL HYSTERECTOMY AND CHOLECYSTECTOMY. ? KIDNEY STONE RADIATION DOSAGE (If Supplied By Facility): CTDIvol = ( 9.73 ) mGy, DLP = ( 455.73 ) mGycm TECHNIQUE: Transaxial images were obtained from the dome of the diaphragm to the symphysis pubis without oral contrast. IV 100mL Isovue-300 was administered. Sagittal and coronal images were reconstructed. Individualized dose optimization techniques were used for this CT. COMPARISON: Comparison is made with prior study dated October 19, 2010. FINDINGS: The visualized lung bases are unremarkable. The visualized portions of the heart are within normal limits. Normal liver. The patient is status post cholecystectomy. Normal spleen. Normal pancreas. Normal bilateral adrenal glands. Normal right kidney. Normal left kidney. There is a small hiatal hernia. Normal small intestine. The large amount of fecal material is seen in the colon. The patient is status post appendectomy. Normal abdominal aorta. Normal inferior vena cava. Normal retroperitoneum. Normal urinary bladder. There is absence of the uterus consistent with a prior hysterectomy. Normal abdominal wall. Normal osseous structures. Minimal levoscoliosis. CT/Abdomen/Pelvis WITH Contrast IMPRESSION: Large amount of fecal material is seen in the colon. Status post cholecystectomy and hysterectomy. Electronically Signed: Girma Jean-Baptiste, at 14:47 EST , Service support ,
== END ==
LOC: CT 12:37
PROVIDERS: PCP Family Medicine; Referring Provider Family Medicine; Visit Provider Family Medicine
DX: N20.0 Calculus of kidney (principal); R10.12 Left upper quadrant pain
CPT/HCPCS: 74177; Q9967

== ENCOUNTER → 2019-08-20 14:11 | Outpatient (CLI) | payer MEDICARE, SELFPAY ==
[2019-02-08 13:45] VITALS: BMI 23.7
[2019-08-20 15:21] LABS: Absolute Lymphocyte Count 1.56 X10^3/uL (0.83-4.51); Absolute Neutrophil Count 4.3 X10^3/uL (2.0-7.7); Basophil# 0.03 X10^3/uL; Basophil% 0.5 % (0-1); Eosinophil# 0.08 X10^3/uL; Eosinophils% 1.2 % (0-5); Hematocrit 47.9 % (37-47); Hemoglobin 15.7 g/dL (12.0-15.0); Lymphocyte # 1.56 X10^3/ul (4.0); Mean Corp Hgb Conc 32.8 g/dL (32-36); Mean Corpuscular Volume 100.6 fL (81-99); Mean Platelet Vol. 10.1 fl (6.2-12.0); Monocyte# 0.51 X10^3/uL; Monocyte% 7.9 % (0-10); NRBC Flagged by Analyzer 0 % (0-5); Neutrophil # 4.29 X10^3/uL (2.7-7.7); Neutrophil % 66.1 % (47-70); Platelet Count 206 K/mm3 (150-450); RBC Distribution Width CV 13.3 % (11.6-14.6); RBC Distribution Width SD 49.3 fl (35.1-43.9); Red Blood Count 4.76 M/mm3 (4.2-5.4); White Blood Count 6.5 K/mm3 (4.4-11.0)
[2019-08-20 15:31] LABS: ALB/GLOB Ratio 1.3 RATIO (0.9-2.4); AST(SGOT) 32 U/L (15-37); Alanine Aminotransfer ALT/SGPT 31 U/L (13-56); Albumin, Serum 3.9 g/dL (3.2-5.0); Alkaline Phosphatase 67 U/L (45-117); Anion Gap 4 (5-15); BUN 15 mg/dL (7-18); BUN/Creat Ratio 16.3 RATIO (10-20); Calcium,Total 9.4 mg/dL (8.5-10.1); Chloride 105 mmol/L (98-107); Creatinine, Serum 0.92 mg/dL (0.55-1.02); EST Glomerular Filtration Rate 69 mL/min (>60); Est Glom Filt Rate - Afr Amer 83 mL/min (>60); Glucose 93 mg/dL (74-106); Potassium 3.8 mmol/L (3.5-5.1); Protein, Total 6.9 g/dL (6.4-8.2); Sodium Level 142 mmol/L (136-145)
== END ==
PROVIDERS: PCP Family Medicine; Referring Provider Internal Medicine Rheumatology; Visit Provider Internal Medicine Rheumatology
DX: M06.4 Inflammatory polyarthropathy (principal); M35.00 Sjogren syndrome, unspecified; N20.0 Calculus of kidney; D68.8 Other specified coagulation defects; E87.6 Hypokalemia; Z79.899 Other long term (current) drug therapy; Z87.11 Personal history of peptic ulcer disease; Z86.73 Personal history of transient ischemic attack (TIA), and cerebral infarction without residual deficits
CPT/HCPCS: 36415; 80053; 85025

== ENCOUNTER → 2019-11-15 16:47 | Outpatient (CLI) | payer MEDICARE, SELFPAY ==
[2019-02-08 13:45] VITALS: BMI 23.7
--- NOTE | 2019-11-15 16:55 | RAD_ITS ---
STUDY: X-RAY CHEST REASON FOR EXAM: Female, 49 years old. Chest pain. Dyspnea on exertion. Coping symptoms on June 05, 2019 on going heaviness in the center of the chest. Shortness of breath. TECHNIQUE: PA and lateral views of the chest. COMPARISON: May 21, 2011. FINDINGS: The lungs are clear and expanded. There is no demonstrated pleural abnormality. Normal size heart. Normal mediastinum and kristy. Normal visualized pulmonary arteries. Normal visualized aortic arch and descending thoracic aorta. There are mild degenerative changes of the thoracic spine. Normal visualized ribs, clavicles, and shoulders. There is no demonstrated abnormality of the visualized soft tissue structures of the upper abdomen. RAD/Chest PA and Lateral IMPRESSION: No acute cardiopulmonary disease. Electronically Signed: Fadi Huynh DO at 23:55 EDT Tel [phone], Service support ,
== END ==
PROVIDERS: PCP Family Medicine; Referring Provider Family Medicine; Visit Provider Family Medicine
DX: R07.9 Chest pain, unspecified (principal); R06.00 Dyspnea, unspecified
CPT/HCPCS: 71046

== ENCOUNTER → 2019-11-17 12:25 | Outpatient (CLI) | payer MEDICARE, SELFPAY ==
[2019-02-08 13:45] VITALS: BMI 23.7
[2019-11-17 13:12] LABS: Absolute Lymphocyte Count 1.61 X10^3/uL (0.83-4.51); Absolute Neutrophil Count 3.8 X10^3/uL (2.0-7.7); Basophil# 0.02 X10^3/uL; Basophil% 0.3 % (0-1); Eosinophil# 0.07 X10^3/uL; Eosinophils% 1.2 % (0-5); Hemoglobin 15.7 g/dL (12.0-15.0); Lymphocyte # 1.61 X10^3/ul (4.0); Lymphocyte % 26.7 % (19-41); Mean Corp Hgb Conc 33.4 g/dL (32-36); Mean Corpuscular Volume 101.7 fL (81-99); Mean Platelet Vol. 10.6 fl (6.2-12.0); Monocyte# 0.53 X10^3/uL; Monocyte% 8.8 % (0-10); NRBC Flagged by Analyzer 0 % (0-5); Neutrophil # 3.78 X10^3/uL (2.7-7.7); Neutrophil % 62.7 % (47-70); Platelet Count 203 K/mm3 (150-450); RBC Distribution Width CV 12.4 % (11.6-14.6); RBC Distribution Width SD 46.7 fl (35.1-43.9); Red Blood Count 4.62 M/mm3 (4.2-5.4)
[2019-11-17 14:05] LABS: ALB/GLOB Ratio 1.2 RATIO (0.9-2.4); AST(SGOT) 32 U/L (15-37); Alanine Aminotransfer ALT/SGPT 32 U/L (13-56); Albumin, Serum 3.7 g/dL (3.2-5.0); Alkaline Phosphatase 70 U/L (45-117); Anion Gap 3 (5-15); BUN 16 mg/dL (7-18); BUN/Creat Ratio 16.9 RATIO (10-20); Calcium,Total 8.8 mg/dL (8.5-10.1); Chloride 104 mmol/L (98-107); Creatinine, Serum 0.94 mg/dL (0.55-1.02); EST Glomerular Filtration Rate 66 mL/min (>60); Est Glom Filt Rate - Afr Amer 80 mL/min (>60); Glucose 101 mg/dL (74-106); Potassium 3.7 mmol/L (3.5-5.1); Protein, Total 6.7 g/dL (6.4-8.2); Sodium Level 139 mmol/L (136-145)
== END ==
PROVIDERS: PCP Family Medicine; Referring Provider Internal Medicine Rheumatology; Visit Provider Internal Medicine Rheumatology
DX: M06.4 Inflammatory polyarthropathy (principal); M35.00 Sjogren syndrome, unspecified; N20.0 Calculus of kidney; D68.8 Other specified coagulation defects; E87.6 Hypokalemia; Z79.899 Other long term (current) drug therapy; Z87.11 Personal history of peptic ulcer disease; Z86.73 Personal history of transient ischemic attack (TIA), and cerebral infarction without residual deficits
CPT/HCPCS: 36415; 80053; 85025

== ENCOUNTER 2019-11-22 13:40 | Emergency (ER) | payer MEDICARE, SELFPAY ==
[2019-02-08 13:45] VITALS: BMI 23.7
[2019-11-22 13:41] VITALS: BP 115/70; PULSE 70; RESP 15; TEMP 36.7; O2SAT 97; BMI 23.5
--- NOTE | 2019-11-22 14:48 | CT_ITS ---
STUDY: CTA CHEST REASON FOR EXAM: Female, 49 years old. CHEST PAIN, CALF PAIN, SOB, COUGH, RECENT LD TRAVEL, SURG-UTERUS REMOVED 10-11-10, LIZZETTE RADIATION DOSAGE (If Supplied By Facility): CTDIvol = ( 10.7 ) mGy, DLP = ( 245.38 ) mGycm TECHNIQUE: The examination was performed with the intravenous administration of 100ML ISOVUE 370. Post-processing of the angiographic images was performed, with multiplanar reformation and 3D reconstruction. Individualized dose optimization techniques were used for this CT. COMPARISON: Comparison is made with prior study dated 10-19-10. FINDINGS: Normal enhancement of the main pulmonary artery and right and left pulmonary arteries. Normal enhancement of the bilateral peripheral pulmonary arteries. There is no demonstrated pulmonary embolism. Normal thoracic aorta and visualized great vessels. There is no demonstrated aortic dissection. Normal heart and pericardium. Normal mediastinum. Normal hilar regions. Normal visualized trachea and bronchi. The lungs are well expanded. Normal pulmonary parenchyma. Normal pleura. Normal chest wall structures. There are degenerative changes of thoracic spine. Normal visualized upper abdomen. CT/CTA Chest W/WO Contrast IMPRESSION: Normal CTA chest examination, without a demonstrated pulmonary embolism or arterial dissection. Electronically Signed: Girma Jean-Baptiste, at 15:58 EDT , Service support ,
--- NOTE | 2019-11-22 14:48 | EKG12_ITS ---
Test Reason : PAIN INLEG Blood Pressure : / mmHG Vent. Rate : 059 BPM Atrial Rate : 059 BPM P-R Int : 124 ms QRS Dur : 080 ms QT Int : 450 ms P-R-T Axes : 066 042 053 degrees QTc Int : 445 ms Sinus bradycardia Otherwise normal ECG Confirmed by MARY ALICE CHA, DMITRY ([id number]), writer editor CLAUDIO MOON ([id number]) on 11/24/2019 12:37:28 PM Referred By: EULA Confirmed By:DMITRY WHEAT MD
--- NOTE | 2019-11-22 14:50 | VDLE_ITS ---
Reason For Study: Swelling RIGHT GSV is normal. CFV is compressible, spontaneous, phasic, competent and demonstrates normal augmentation. FV is compressible, spontaneous, phasic, competent and demonstrates normal augmentation. POP V is compressible, spontaneous, phasic, competent and demonstrates normal augmentation. T/P Trunk is compressible. PTV is compressible. RT PerV is compressible. Procedure Exam performed portable in ED. A preliminary report was called and/or faxed to [facility]. Interpretation Summary There is no evidence of right lower extremity deep vein thrombosis. Right great saphenous vein appears patent and compressible segmentally. Ordering Physician: Celso Gómez Referring Physician: MD Susi Davion Performed By: Margie Hernandez RVT
[2019-11-22] MEDS: 0.9% Normal Saline 1,000 ML 1000 ML IV (15:13)
[2019-11-22 15:15] VITALS: O2SAT 100
[2019-11-22 15:19] LABS: Absolute Lymphocyte Count 1.38 X10^3/uL (0.83-4.51); Absolute Neutrophil Count 3.9 X10^3/uL (2.0-7.7); Basophil# 0.02 X10^3/uL; Basophil% 0.3 % (0-1); Eosinophil# 0.08 X10^3/uL; Eosinophils% 1.4 % (0-5); Hematocrit 53.4 % (37-47); Hemoglobin 17.9 g/dL (12.0-15.0); Lymphocyte # 1.38 X10^3/ul (4.0); Lymphocyte % 23.5 % (19-41); Mean Corp Hgb Conc 33.5 g/dL (32-36); Mean Corpuscular Hgb 33.5 pg (27.0-32.0); Mean Corpuscular Volume 99.8 fL (81-99); Mean Platelet Vol. 10.3 fl (6.2-12.0); Monocyte# 0.46 X10^3/uL; Monocyte% 7.8 % (0-10); NRBC Flagged by Analyzer 0 % (0-5); Neutrophil # 3.92 X10^3/uL (2.7-7.7); Neutrophil % 66.8 % (47-70); Platelet Count 205 K/mm3 (150-450); RBC Distribution Width CV 12.4 % (11.6-14.6); RBC Distribution Width SD 45.8 fl (35.1-43.9); Red Blood Count 5.35 M/mm3 (4.2-5.4); White Blood Count 5.9 K/mm3 (4.4-11.0)
--- NOTE | 2019-11-22 15:20 | ED.DCSUM_ITS ---
History of Present Illness Chief Complaint: General Illness Narrative: 49-year-old female presenting with chest pain, shortness of breath, leg swelling. This is a chronic issue. She states she has had current constant chest pain for over a month. She states is worse in the morning. She also feels short of breath and has a cough at times. She states that her bilateral legs swell worse in the morning. She states that she has unilateral leg swelling on the right which is worse after recent trip to [place]. She states she has an unknown clotting disorder which cannot be diagnosed. She is on Coumadin and maintains an INR of 2-3 to prevent blood clot. She states she has had multiple blood clots. She states she had a stroke when she was in her 20s due to this diagnosis. She is concerned today that she has a DVT in her right leg. Past Medical History - Allergies and Home Meds Allergies/Adverse Reactions: Allergies amoxicillin Allergy (Verified 11/22/19 13:48) Hives bee venom protein (honey bee) Allergy (Verified 11/22/19 13:48) Hives black pepper Allergy (Verified 11/22/19 13:48) Food Allergy cefaclor [From Ceclor] Allergy (Verified 11/22/19 13:48) Hives ciprofloxacin [From Cipro] Allergy (Verified 11/22/19 13:48) Hives clavulanic acid [From Augmentin] Allergy (Verified 11/22/19 13:48) Hives dog dander Allergy (Verified 11/22/19 13:48) Itching erythromycin base Allergy (Verified 11/22/19 13:48) Hives grass pollen Allergy (Verified 11/22/19 13:48) Itching horse dander Allergy (Verified 11/22/19 13:48) Itching latex Allergy (Verified 11/22/19 13:48) Rash silicone Allergy (Verified 11/22/19 13:48) Other second degree tate sulfamethoxazole [From Bactrim] Allergy (Verified 11/22/19 13:48) Swelling trimethoprim [From Bactrim] Allergy (Verified 11/22/19 13:48) Swelling vancomycin Allergy (Verified 11/22/19 13:48) Shortness of breath wheat Allergy (Verified 11/22/19 13:48) Food Allergy ivory soap Allergy (Uncoded 11/22/19 13:48) Angioedema Primary Care Physician: Davion Goldman MD [Primary Care Provider] - Prior records reviewed: Yes Surgical History: noncontributory Smoking Status: Never smoker Review of Systems General: Denies: Chills, Fever, Sweats Eyes: Denies: Visual changes - bilaterally, Diplopia ENT: Denies: Rhinorrhea, Sore throat Cardiovascular: Reports: Chest pain. Denies: Palpitations Respiratory: Reports: Dyspnea, Cough. Denies: Dyspnea on exertion Gastrointestinal: Denies: Abdominal pain, Nausea, Vomiting, Diarrhea, Melena, Hematochezia Genitourinary: Denies: Dysuria, Hematuria, Frequency Musculoskeletal: Reports: Swelling - Lateral leg swelling with right greater than left. Denies: Back pain, Extremity Pain Skin: Denies: Rash, Wounds Neurological: Denies: Headache, Weakness, Numbness Physical Exam Vital Signs/Narrative: Vital Signs Temp Pulse Resp BP Pulse Ox 11/22/19 15:15 100 11/22/19 13:41 98.0 F 70 15 115/70 97 General: Well nourished, Well developed, No Acute Distress Head: Normocephalic, Atraumatic Eyes: Perrl, EOMI ENT: Moist mucous membranes, No rhinorrhea Neck: Supple, Nontender Cardiovascular: Regular rate, Regular rhythm, No murmurs Respiratory: No distress, CTA bilaterally, Chest nontender Abdomen: Soft, Nontender Back: Nontender, Normal Inspection Extremities: Tenderness - Patient has tenderness to palpation of the right calf. The right calf compartments are soft. There is no cords palpated. Negative Homans sign. There is not a appreciable difference between the size of the left and the right leg objectively. Both lower extremities are neurovascularly intact. Skin: Normal color, No rash Neurological: Alert, Oriented x3, Cranial nerves II-XII grossly intact, Normal Strength, Normal Sensation Psychological: Normal affect, Normal Mood Diagnostic/Tx/Re-eval Clinical Impression(s) from Imaging Studies Chest CTA 11/22/19 14:48 IMPRESSION: Normal CTA chest examination, without a demonstrated pulmonary embolism or arterial dissection. Electronically Signed: Girma Jean-Baptiste, at 15:58 EDT , Service support , Laboratory Data 11/22/19 11/22/1920 15:10 15:10 15:10 WBC 5.9 RBC 5.35 Hgb 17.9 H Hct 53.4 H MCV 99.8 H MCH 33.5 H MCHC 33.5 RDW Std Deviation 45.8 H RDW Coeff of Jossie 12.4 Plt Count 205 MPV 10.3 Immature Gran % (Auto) 0.200 Neut % (Auto) 66.8 Lymph % (Auto) 23.5 [place] % (Auto) 7.8 Eos % (Auto) 1.4 Baso % (Auto) 0.3 Absolute Neuts (auto) 3.9 Absolute Lymphs (auto) 1.38 Nucleated RBC % 0 PT 25.0 H INR 2.3 Sodium 140 Potassium 3.5 Chloride 102 Carbon Dioxide 34.0 H Anion Gap 4 L BUN 17 Creatinine 0.91 Estim Creat Clear Calc 71.92 Est GFR (MDRD) Af Amer 84 Est GFR (MDRD) Non-Af 69 BUN/Creatinine Ratio 18.7 Glucose 86 Calcium 9.3 Troponin I < 0.015 - Rhythm Strip Rhythm Strip: Sinus Rhythm Rate: 59 - EKG Initial EKG Interpretation: Sinus Rhythm, Sinus Bradycardia - Medical Decision Making Given the patient's complaints and clotting disorder I did get a venous duplex of the right lower extremity which was negative. Her blood work was all normal with exception of an elevated hemoglobin. She does not appear to be dehydrated. Electrolytes are normal. Troponin is negative after a month of constant chest pain so I do not believe this is ACS. EKG is sinus rhythm without signs of ischemia. CTA of the chest is negative for acute process. Patient counseled that she should follow-up for her echocardiogram tomorrow and her pulmonary function testing next week. She is given return precautions. Patient stable for discharge. Impression 1 chest pain 2. Right leg swelling 3. Shortness of breath ED Disposition - Plan for ED Patient: Disposition: Home or Assisted Living Diagnosis: Chest pain Instructions: ED Peripheral Edema, Unilateral Referrals: Davion Goldman MD [Primary Care Provider] -
[2019-11-22 15:39] LABS: Anion Gap 4 (5-15); BUN 17 mg/dL (7-18); BUN/Creat Ratio 18.7 RATIO (10-20); Calcium,Total 9.3 mg/dL (8.5-10.1); Chloride 102 mmol/L (98-107); Creatinine, Serum 0.91 mg/dL (0.55-1.02); EST Glomerular Filtration Rate 69 mL/min (>60); Est Glom Filt Rate - Afr Amer 84 mL/min (>60); Estimated Creatinine Clearance 71.92 ml/min; Glucose 86 mg/dL (74-106); International Normalized Ratio 2.3; Potassium 3.5 mmol/L (3.5-5.1); Sodium Level 140 mmol/L (136-145)
[2019-11-22 17:11] VITALS: BP 107/60; PULSE 63; RESP 14; O2SAT 100
== END 2019-11-22 17:11 | disposition home or self-care (01) ==
PROVIDERS: Emergency Provider Student in an Organized Health Care Education/Training Program; PCP Family Medicine
DX: R07.9 Chest pain, unspecified (principal); M79.89 Other specified soft tissue disorders; R06.02 Shortness of breath; D68.9 Coagulation defect, unspecified; Z79.01 Long term (current) use of anticoagulants; Z79.82 Long term (current) use of aspirin; Z79.899 Other long term (current) drug therapy; Z86.718 Personal history of other venous thrombosis and embolism; Z86.73 Personal history of transient ischemic attack (TIA), and cerebral infarction without residual deficits
CPT/HCPCS: 71275; 80048; 84484; 85025; 85610; 93005; 93971; 96360; 99284; J7030; Q9967

== ENCOUNTER → 2019-11-23 12:52 | Outpatient (CLI) | payer MEDICARE, SELFPAY ==
[2019-02-08 13:45] VITALS: BMI 23.7
[2019-11-22 13:41] VITALS: BMI 23.5
--- NOTE | 2019-11-23 12:58 | ECHOD_ITS ---
Reason For Study: CHEST PAIN Procedure This was a 2D Doppler, Color Flow transthoracic echocardiogram. The exam was of adequate technical quality. Exam performed in department. Left Ventricle Normal LV size. Left ventricular systolic function is normal. The estimated ejection fraction is 60 %. Transmitral doppler flow suggestive of impaired relaxation of left ventricle. No regional wall motion abnormalities noted. Right Ventricle Normal RV size. Normal systolic function. Atria Normal left atrium. Normal right atrium. No doppler evidence for ASD. Mitral Valve There is no mitral annular calcification. Mild diffuse mitral valve thickening. Trivial mitral valve insufficiency. Tricuspid Valve Normal tricuspid valve. Trivial tricuspid valve insufficiency. Aortic Valve Trisinus/trileaflet aortic valve. Normal aortic valve. Trivial aortic valve insufficiency. Pulmonic Valve The pulmonic valve is not well visualized. Great Vessels Normal sized aortic root. Pericardium/Pleural No pericardial effusion. MMode/2D Measurements & Calculations LVIDd: 4.7 cm IVSd: 0.73 cm Ao root diam: 3.2 cm LVIDs: 3.1 cm LVPWd: 0.73 cm RVDd: 3.4 cm FS: 33.8 % LAV(MOD-bp): 46.0 ml LA A4 area: 19.3 cm2 LA dimension(2D): 3.4 cm LAV(MOD-bp) Indexed: 25.7 ml/m2 LAV(MOD-sp2): 33.7 ml LAV(MOD-sp4): 54.9 ml RA A4 area: 13.5 cm2 Time Measurements MV dec time: 0.32 sec Doppler Measurements & Calculations MV E max naseem: 50.5 cm/sec Lat Peak E' Naseem: 15.3 cm/sec Med Peak E' Naseem: 9.9 cm/sec MV A max naseem: 65.0 cm/sec E/E' lat: 3.3 E/E' med: 5.1 MV E/A: 0.78 Ao V2 max: 142.6 cm/sec LV V1 max: 113.0 cm/sec PA V2 max: 111.5 cm/sec Ao max P.1 mmHg LV V1 max P.1 mmHg Interpretation Summary Left ventricular systolic function is normal. The estimated ejection fraction is 60 %. Mild diffuse mitral valve thickening. Trivial mitral valve insufficiency. Trivial tricuspid valve insufficiency. Trivial aortic valve insufficiency. Transmitral doppler flow suggestive of impaired relaxation of left ventricle Ordering Physician: Davion Goldman Referring Physician: Davion Goldman Performed By: Alexia Huddleston, RADHA, RVT
== END ==
PROVIDERS: PCP Family Medicine; Referring Provider Family Medicine; Visit Provider Family Medicine
DX: R07.9 Chest pain, unspecified (principal); R06.00 Dyspnea, unspecified
CPT/HCPCS: 93306

== ENCOUNTER → 2019-11-30 13:01 | Outpatient (CLI) | payer MEDICARE, SELFPAY ==
[2019-11-22 13:41] VITALS: BMI 23.5
[2019-11-30 13:59] LABS: Erythrocyte Sedimentation Rate < 1 mm/hr (0-30)
[2019-11-30 14:06] LABS: CRP < 2.90 mg/L (0.0-3.0)
[2019-12-01 14:42] LABS: ANTINUCLEAR ANTIBODIES DIRECT Negative (Negative)
== END ==
PROVIDERS: PCP Family Medicine; Referring Provider Internal Medicine Pulmonary Disease; Visit Provider Internal Medicine Pulmonary Disease
DX: R09.1 Pleurisy (principal)
CPT/HCPCS: 36415; 85652; 86038; 86140

== ENCOUNTER → 2020-02-03 13:14 | Outpatient (CLI) | payer MEDICARE, SELFPAY ==
[2020-02-03 14:13] LABS: Absolute Neutrophil Count 4.6 X10^3/uL (2.0-7.7); Basophil# 0.02 X10^3/uL; Basophil% 0.3 % (0-1); Eosinophil# 0.03 X10^3/uL; Eosinophils% 0.5 % (0-5); Hematocrit 45.8 % (37-47); Hemoglobin 15.1 g/dL (12.0-15.0); Lymphocyte % 19.4 % (19-41); Mean Corpuscular Hgb 34.2 pg (27.0-32.0); Mean Corpuscular Volume 103.6 fL (81-99); Mean Platelet Vol. 10.9 fl (6.2-12.0); Monocyte# 0.37 X10^3/uL; NRBC Flagged by Analyzer 0 % (0-5); Neutrophil # 4.55 X10^3/uL (2.7-7.7); Neutrophil % 73.6 % (47-70); Platelet Count 191 K/mm3 (150-450); RBC Distribution Width CV 13.4 % (11.6-14.6); RBC Distribution Width SD 51.5 fl (35.1-43.9); Red Blood Count 4.42 M/mm3 (4.2-5.4); White Blood Count 6.2 K/mm3 (4.4-11.0)
[2020-02-03 14:34] LABS: ALB/GLOB Ratio 1.3 RATIO (0.9-2.4); AST(SGOT) 32 U/L (15-37); Alanine Aminotransfer ALT/SGPT 34 U/L (13-56); Albumin, Serum 3.7 g/dL (3.2-5.0); Alkaline Phosphatase 63 U/L (45-117); Anion Gap 3 (5-15); BUN 17 mg/dL (7-18); BUN/Creat Ratio 17.1 RATIO (10-20); Calcium,Total 8.9 mg/dL (8.5-10.1); Chloride 105 mmol/L (98-107); Creatinine, Serum 0.99 mg/dL (0.55-1.02); EST Glomerular Filtration Rate 63 mL/min (>60); Est Glom Filt Rate - Afr Amer 76 mL/min (>60); Globulin 2.9 g/dL (2.2-4.2); Glucose 91 mg/dL (74-106); Potassium 3.9 mmol/L (3.5-5.1); Protein, Total 6.6 g/dL (6.4-8.2); Sodium Level 139 mmol/L (136-145)
== END ==
PROVIDERS: PCP Family Medicine; Referring Provider Internal Medicine Rheumatology; Visit Provider Internal Medicine Rheumatology
DX: M06.4 Inflammatory polyarthropathy (principal); M35.00 Sjogren syndrome, unspecified; N20.0 Calculus of kidney; E87.6 Hypokalemia; D68.8 Other specified coagulation defects; Z79.899 Other long term (current) drug therapy; Z87.11 Personal history of peptic ulcer disease; Z86.73 Personal history of transient ischemic attack (TIA), and cerebral infarction without residual deficits
CPT/HCPCS: 36415; 80053; 85025

== ENCOUNTER → 2020-03-29 15:33 | Outpatient (CLI) | payer MEDICARE, SELFPAY ==
[2020-03-29 17:27] LABS: Absolute Lymphocyte Count 1.71 X10^3/uL (0.83-4.51); Basophil# 0.03 X10^3/uL; Basophil% 0.5 % (0-1); Eosinophil# 0.14 X10^3/uL; Eosinophils% 2.6 % (0-5); Hematocrit 47.1 % (37-47); Hemoglobin 15.6 g/dL (12.0-15.0); Lymphocyte # 1.71 X10^3/ul (4.0); Lymphocyte % 31.3 % (19-41); Mean Corp Hgb Conc 33.1 g/dL (32-36); Mean Corpuscular Hgb 33.5 pg (27.0-32.0); Mean Corpuscular Volume 101.3 fL (81-99); Monocyte# 0.55 X10^3/uL; Monocyte% 10.1 % (0-10); NRBC Flagged by Analyzer 0 % (0-5); Neutrophil # 3.03 X10^3/uL (2.7-7.7); Neutrophil % 55.3 % (47-70); Platelet Count 181 K/mm3 (150-450); RBC Distribution Width CV 12.2 % (11.6-14.6); Red Blood Count 4.65 M/mm3 (4.2-5.4); White Blood Count 5.5 K/mm3 (4.4-11.0)
[2020-03-29 18:16] LABS: ALB/GLOB Ratio 1.4 RATIO (0.9-2.4); AST(SGOT) 37 U/L (15-37); Alanine Aminotransfer ALT/SGPT 35 U/L (13-56); Albumin, Serum 3.8 g/dL (3.2-5.0); Alkaline Phosphatase 73 U/L (45-117); Anion Gap 2 (5-15); BUN 19 mg/dL (7-18); BUN/Creat Ratio 19.5 RATIO (10-20); Chloride 105 mmol/L (98-107); Creatinine, Serum 0.97 mg/dL (0.55-1.02); EST Glomerular Filtration Rate 64 mL/min (>60); Est Glom Filt Rate - Afr Amer 78 mL/min (>60); Globulin 2.8 g/dL (2.2-4.2); Glucose 78 mg/dL (74-106); Potassium 3.5 mmol/L (3.5-5.1); Protein, Total 6.6 g/dL (6.4-8.2); Sodium Level 143 mmol/L (136-145)
== END ==
PROVIDERS: PCP Family Medicine; Visit Provider Internal Medicine Rheumatology
DX: M06.4 Inflammatory polyarthropathy (principal); M35.00 Sjogren syndrome, unspecified; N20.0 Calculus of kidney; D68.8 Other specified coagulation defects; E87.6 Hypokalemia; Z79.899 Other long term (current) drug therapy; Z86.73 Personal history of transient ischemic attack (TIA), and cerebral infarction without residual deficits; Z87.11 Personal history of peptic ulcer disease
CPT/HCPCS: 36415; 80053; 85025

== ENCOUNTER → 2020-06-13 09:11 | Outpatient (CLI) | payer MEDICARE, SELFPAY ==
[2020-06-13 09:55] LABS: Absolute Lymphocyte Count 1.16 X10^3/uL (0.83-4.51); Absolute Neutrophil Count 2.8 X10^3/uL (2.0-7.7); Basophil# 0.02 X10^3/uL; Basophil% 0.4 % (0-1); Eosinophil# 0.08 X10^3/uL; Eosinophils% 1.8 % (0-5); Hematocrit 48.5 % (37-47); Hemoglobin 15.9 g/dL (12.0-15.0); Lymphocyte # 1.16 X10^3/ul (4.0); Mean Corp Hgb Conc 32.8 g/dL (32-36); Mean Corpuscular Hgb 33.3 pg (27.0-32.0); Mean Corpuscular Volume 101.5 fL (81-99); Mean Platelet Vol. 10.4 fl (6.2-12.0); Monocyte# 0.43 X10^3/uL; Monocyte% 9.6 % (0-10); NRBC Flagged by Analyzer 0 % (0-5); Neutrophil # 2.77 X10^3/uL (2.7-7.7); Platelet Count 177 K/mm3 (150-450); Red Blood Count 4.78 M/mm3 (4.2-5.4); White Blood Count 4.5 K/mm3 (4.4-11.0)
[2020-06-13 10:31] LABS: ALB/GLOB Ratio 1.5 RATIO (0.9-2.4); AST(SGOT) 29 U/L (15-37); Alanine Aminotransfer ALT/SGPT 36 U/L (13-56); Albumin, Serum 4.1 g/dL (3.2-5.0); Alkaline Phosphatase 71 U/L (45-117); Anion Gap 0 (5-15); BUN 18 mg/dL (7-18); BUN/Creat Ratio 19.8 RATIO (10-20); Calcium,Total 9.1 mg/dL (8.5-10.1); Chloride 106 mmol/L (98-107); Creatinine, Serum 0.91 mg/dL (0.55-1.02); EST Glomerular Filtration Rate 69 mL/min (>60); Est Glom Filt Rate - Afr Amer 84 mL/min (>60); Globulin 2.7 g/dL (2.2-4.2); Glucose 87 mg/dL (74-106); Potassium 4.3 mmol/L (3.5-5.1); Protein, Total 6.8 g/dL (6.4-8.2); Sodium Level 141 mmol/L (136-145)
== END ==
PROVIDERS: PCP Family Medicine; Referring Provider Internal Medicine Rheumatology; Visit Provider Internal Medicine Rheumatology
DX: M06.4 Inflammatory polyarthropathy (principal); M35.00 Sjogren syndrome, unspecified; N20.0 Calculus of kidney; D68.8 Other specified coagulation defects; E87.6 Hypokalemia; Z79.899 Other long term (current) drug therapy; Z87.11 Personal history of peptic ulcer disease; Z86.73 Personal history of transient ischemic attack (TIA), and cerebral infarction without residual deficits
CPT/HCPCS: 36415; 80053; 85025

== ENCOUNTER 2020-08-23 05:27 | Day surgery (SDC) | payer MEDICARE, SELFPAY ==
[2020-07-28 09:08] VITALS: BMI 23.5
--- NOTE | 2020-08-23 | COLBX_PTH ---
PATIENT: ERICH ALARCON LOC: EN U#:[id number] AGE/SX: 50/F ROOM: RE08/23/[address]: Dr. Yahir Hancock MD : [id number] BED: DIS: 08/23/2020 SPEC #: [id number] RECD: 08/23/20 12:11 STATUS: CARLOS LITTLE #: [id number] RANJEET: 08/23/20 00:[address]: Yahir Hacnock DEPT: SURGICAL PATHOLOGY RECD BY: Ray Bland ENTERED: 08/23/20 12:11 SP TYPE: COLON BX OTHR DR: Dr. Davion Goldman MD Tissues: A - Duodenum, NOS B - Gastric mucous membrane C - Esophageal mucous membrane D - Esophageal mucous membrane Procedures: Surgery Specimen Level IV HEADER OPERATION: Colonoscopy, EGD ([facility] [place]) PRE-OP DIAGNOSIS: Rectal bleeding TISSUE SUBMITTED: A - Duodenum biopsy, B - Antrum biopsy for H. pylori and path, C - Distal esophagus biopsy, D - Mid esophagus biopsy MICROSCOPIC DIAGNOSIS A. Duodenum, biopsy: A fragment of duodenal mucosa with mild mucosal congestion and hemorrhage. B. Antrum, biopsy: Mild gastritis. See microscopic description and comment. C. Distal esophagus, biopsy: A fragment of squamous epithelium with minimal chronic inflammation. D. Mid esophagus, biopsy: Fragments of squamous epithelium, no pathologic diagnosis. SJ:rg 08/24/2020 COMMENT B. The results of immunohistochemistry for Helicobacter pylori will be reported separately ([id number]). MICROSCOPIC DESCRIPTION Slides are reviewed. B. The specimen shows fragments of gastric mucosa with chronic inflammatory cell infiltrates in the lamina propria consisting of lymphocytes and plasma cells, consistent with mild chronic gastritis. Focal mucosal congestion is also noted. GROSS DESCRIPTION A - Received in fixative is one container labeled with the patient's name and designated duodenum biopsy. The specimen consists of one irregular fragment of light vigil soft tissue that measures 0.3 x 0.2 x 0.1 cm. The specimen is totally submitted in one cassette. B - Received in fixative is one container labeled with the patient's name and designated antrum biopsy. The specimen consists of one irregular fragment of light vigil soft tissue that measures 0.3 x 0.2 x 0.1 cm. The specimen is totally submitted in one cassette. C - Received in fixative is one container labeled with the patient's name and designated distal esophagus biopsy. The specimen consists of one irregular fragment of light vigil soft tissue that measures 0.3 x 0.2 x 0.1 cm. The specimen is totally submitted in one cassette. D - Received in fixative is one container labeled with the patient's name and designated mid esophagus biopsy. The specimen consists of multiple irregular fragments of light vigil soft tissue that in aggregate measure 0.4 x 0.2 x 0.1 cm. The specimen is totally submitted in one cassette. / SJ:rg 08/23/20 TC:3 CPT: 99448 x4
--- NOTE | 2020-08-23 06:00 | PCM.HP.BLA ---
History and Physical Date of Admission: 08/23/20 ntake Visit Reasons: C-Scope Blood in stool? Chief Complaint: c-scope Destaticizer Feeder Required: No Is patient in pain?: Yes (LUQ abdomen) Allergies amoxicillin Allergy (Verified 07/28/20 09:20) Hivesbee venom protein (honey bee) Allergy (Verified 07/28/20 09:20) Hivesblack pepper Allergy (Verified 07/28/20 09:20) Food Allergycefaclor [From Ceclor] Allergy (Verified 07/28/20 09:20) Hivesciprofloxacin [From Cipro] Allergy (Verified 07/28/20 09:20) Hivesclavulanic acid [From Augmentin] Allergy (Verified 07/28/20 09:20) Hivesdog dander Allergy (Verified 07/28/20 09:20) Itchingerythromycin base Allergy (Verified 07/28/20 09:20) Hivesgrass pollen Allergy (Verified 07/28/20 09:20) Itchinghorse dander Allergy (Verified 07/28/20 09:20) Itchinglatex Allergy (Verified 07/28/20 09:20) Rashsilicone Allergy (Verified 07/28/20 09:20) Othersulfamethoxazole [From Bactrim] Allergy (Verified 07/28/20 09:20) Swellingtrimethoprim [From Bactrim] Allergy (Verified 07/28/20 09:20) Swellingvancomycin Allergy (Verified 07/28/20 09:20) Shortness of breathwheat Allergy (Verified 07/28/20 09:20) Food Allergyivory soap Allergy (Uncoded 07/28/20 09:20) Angioedema Medications Aspirin [Aspir 81] 81 mg PO DAILY 02/05/19 [History Confirmed 07/28/20] Calcium Carbonate/Vitamin D3 [Calcium 600-Vit D3 500 Softgel] 1 ea PO DAILY 02/05/19 [History Confirmed 07/28/20] Ergocalciferol [Vitamin D] 50,000 unit PO Q7D 02/05/19 [History Confirmed 07/28/20] Estradiol [Vivelle-Dot, Estraderm] 0.05 mg TRANSDERM. .2X/WEEK 02/05/19 [History Confirmed 07/28/20] Folic Acid 1 mg PO BID 02/05/19 [History Confirmed 07/28/20] Hydrochlorothiazide 12.5 mg PO DAILY 02/05/19 [History Confirmed 07/28/20] Hydroxychloroquine Sulfate [Plaquenil] 200 mg PO BID 02/05/19 [History Confirmed 07/28/20] Levocetirizine Dihydrochloride [Xyzal] 5 mg PO DAILY 02/05/19 [History Confirmed 07/28/20] Methotrexate Sodium [Methotrexate] 20 mg PO WIGGINS 02/05/19 [History Confirmed 07/28/20] Multivit,Calc,Mins/Iron/Folic [Women's Daily Formula Caplet] 1 ea PO DAILY 02/05/19 [History Confirmed 07/28/20] Omeprazole [Prilosec] 20 mg PO QHS 02/05/19 [History Confirmed 07/28/20] Oxybutynin [Ditropan] 5 mg PO BID 02/05/19 [History Confirmed 07/28/20] Potassium Chloride Oral Tablet [K-Dur] 20 meq PO BID 02/05/19 [History Confirmed 07/28/20] Potassium Citrate [Urocit-K] 3 tab PO BID 02/05/19 [History Confirmed 07/28/20] Spironolactone [Aldactone] 25 mg PO DAILY 02/05/19 [History Confirmed 07/28/20] Warfarin [Coumadin ([facility])] 10 mg PO SUMOTUWETHFR 02/05/19 [History Confirmed 07/28/20] Warfarin [Coumadin ([facility])] 15 mg PO SA 02/05/19 [History Confirmed 07/28/20] B-complex with vitamin C 1 tablet PO DAILY 07/28/20 [History Confirmed 07/28/20] coenzyme Q10 75 mg capsule 75 mg PO DAILY 07/28/20 [History Confirmed 07/28/20] docusate sodium 100 mg capsule 100 mg PO DAILY 07/28/20 [History Confirmed 07/28/20] fluticasone propionate 50 mcg/actuation nasal spray,suspension 1 spray INTRANASAL DAILY 07/28/20 [History Confirmed 07/28/20] leucovorin calcium 5 mg tablet 25 mg PO MO? tablet 07/28/20 [History Confirmed 07/28/20] melatonin 5 mg capsule mg PO 07/28/20 [History Confirmed 07/28/20] nitrofurantoin monohydrate/macrocrystals 100 mg capsule 100 mg PO .prn? cap 07/28/20 [History Confirmed 07/28/20] omega-3 fatty acids 1,000 mg capsule 1,000 mg PO DAILY 07/28/20 [History Confirmed 07/28/20] prednisolone sodium phosphate 1 % eye drops 1 drp OPHTHALMIC BID 07/28/20 [History] prednisone 5 mg tablet 5 mg PO DAILY 07/28/20 [History Confirmed 07/28/20] propylene glycol 0.6 % eye drops 1 drp OPHTHALMIC DAILY PRN 07/28/20 [History Confirmed 07/28/20] psyllium husk 6 gram/6 gram oral powder 1 tbsp PO DAILY 07/28/20 [History Confirmed 07/28/20] sumatriptan succinate 50 mg tablet 50 mg PO .prn? tablet 07/28/20 [History Confirmed 07/28/20] PFSH Medical History? (Updated 07/28/20 @ 10:[address] Yahir Hancock MD) Rectal bleeding (Acute) Arthritis (Acute) Bleeding gastric ulcer (Acute) Blood clotting disorder (Acute) CVA (cerebral vascular accident) (Acute) GERD (gastroesophageal reflux disease) (Acute) Lupus (systemic lupus erythematosus) (Acute) SOB (shortness of breath) (Acute) Sjogren's disease (Acute) TIA (transient ischemic attack) (Acute) Surgical History? (Updated 07/28/20 @ 09:07 by Leora Pryor) S/P hysterectomy (Acute) S/P laparoscopic cholecystectomy (Acute) S/P sinus surgery (Acute) Family History? (Updated 07/28/20 @ 09:08 by Leora Pryor) Father CVA (cerebral vascular accident) Bleeding disorder Social History? (Updated 07/28/20 @ 10:[address] Yahir Hancock MD) Smoking Status:? Never smoker? alcohol intake:? never? HPI HPI HPI: ERICH ALARCON, is a 50 F who presents to the office today for surgical consultation regarding rectal bleeding.? The patient is referred by Dr. Davion Johnson and a written copy of my surgical consult and recommendations will return to him. Extraordinarily complex 50-year-old female.? She has multiple ongoing medical issues and is on multiple medications.? She has lupus and Sjogren's disease.? 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 She has been on Coumadin therapy for at least 30 years.? She takes significant amounts of Coumadin 15 mg twice weekly and 10 mg the other 5 days.? In addition to that she is on aspirin therapy. She has also been complaining of epigastric pain.? She claims that she has had a previous history of multiple gastric ulcers. She is thrombocytosis. She has had COVID-19 twice.? May 2019 and February 2020.? She states that she is not currently on any supplemental oxygen. She states that she has had 4 episodes of bright red rectal bleeding.? This has been painless.? She states that she had a remote colonoscopy in 2004.? There was a comment made at that time about internal hemorrhoids.? She does not sense any discomfort. Laboratory as of June 13, 2020 showed a white count of 4.5 with a hemoglobin of 15.9 hematocrit 48.5 platelet count 177,000.? BUN is 18 and creatinine 0.91.? Liver function tests were normal. Previously when she has required surgical intervention she has had to have bridge therapy with Lovenox. HPI HPI HPI: ERICH ALARCON, is a 50 F who presents to the office today for? ROS General General: Yes fatigue; no weight change, appetite, colon cancer, breast cancer or weakness HEENT HEENT: No difficulty swallowing, eye injury, eye surgery, swollen glands or hoarseness Endo Endocrine: No thyroid disease, diabetes mellitus, thyroid cancer, Hair loss, heat intolerance or cold intolerance Skin Skin: No rash or changing moles Breast Breast: No left breast lump, right breast lump, nipple discharge, breast pain, abnormal mammogram, abnormal US or breast enlargement Musc Musculoskeletal: Yes arthritis; no back problems, rheumatoid arthritis, gout or joint pain Cardio Cardiovascular: No murmur, pacemaker, heart disease, atrial fibrillation, high blood pressure, heart attack, heart stent, palpitations, shortness of breat with exertion or chest pain Psych Psychiatric: Yes depression and anxiety; no hearing voices Resp Respiratory: Yes shortness of breath, No sleep apnea, No cough, No COPD, No asthma, No emphysema, No wheezing Gastro Gastrointestinal: Yes abdominal pain, Yes nausea or vomiting, Yes diarrhea, Yes constipation, Yes blood in stool, No acid reflux, No hemorrhoids, No ulcers, No gallbladder problem, Yes black,tarry stools Ab Hematologic: Yes blood thinners, Yes blood disorders, Yes bleeding, No anemia, Yes blood clots Neuro Neurologic: No system reviewed and no additional complaints, except as docu, No as per HPI, No abnormal walking, No abnormal hearing, No abnormal movements, No abnormal speech, No behavioral changes, No burning sensations, No confusion, No seizure-like activity, No unsteadiness, No dizziness, No localized weakness, No frequent falls, No headache(s), No lack of coordination, No loss of vision, No memory loss, No numbness, No other visual disturbances, No radiating pain, No restless legs, No sensory deficit, No fainting, No tingling, No tremor(s), No weakness, No other Exam Const General: cooperative Nutritional Appearance: average body habitus Orientation: alert, awake HENCT Head: normal to inspection Eyes General: appearance normal, both eyes and all related structures Neck Carotids: normal carotid upstroke, no bruits Chest Breast Palpation: No nipple discharge Resp Effort & Inspection: normal respiratory effort Auscultation: clear to auscultation bilaterally Cardio Rate: regular rate Rhythm: regular rhythm Heart Sounds: no murmurs GI Palpation: soft, no hepatosplenomegaly Auscultation: normal bowel sounds Musc Cervical Spine: normal cervical lordosis Neuro Cognition: normal cognition Extrem General: no calf tenderness Psych Affect: normal affect Assessment & Plan Problems 1. Rectal bleeding? K62.5 Plan 50-year-old female with rectal bleeding.? She is anticoagulated on Coumadin and antiplatelet aspirin therapy.? She is at higher risk for clotting disorder CVA and stroke.? She states that 1 week ago her INR was 2.2 but that the check before that was 3.2.? I am recommending to her combined esophagogastroduodenoscopy with possible biopsy and colonoscopy with possible biopsy or polypectomy as indicated.? If her INR is closer to 2.2 I think we should be able to accomplish that with monitored anesthesia care and no Lovenox bridging.? If she is higher than I would consider having her hold her Coumadin for 1 to 2 days as indicated and bridging her with Lovenox 80 mg daily. We will have her obtain an INR 3 days to planned endoscopy.? Decision will be made at that time as to whether she should be bridged with Lovenox or whether we can safely accomplish it while she is still on her Coumadin therapy.? She would be at higher risk for clotting issues. She has had an opportunity to ask and have questions answered.? We will schedule and proceed at her discretion.? I appreciate the opportunity of assisting with her surgical care. Copy: Dr. Davion Hancock M.D., F.A.C.S. Orders ?Orders: ? Colonoscopy Today R10.9, R19.7 ? ? EGD Today R19.7 ? ? Prothrombin Time w/INR Today Z79.01 ? Coding Level of Care Code 23232 Diagnoses Rectal bleeding? K62.5 I have re-examined the patient. There are no clinical changes since date of exam. Assessment & Plan Assessment/Plan (1) Rectal bleeding: Status: Acute Code(s): K62.5 - Hemorrhage of anus and rectum
[2020-08-23 06:07] VITALS: BP 99/61; PULSE 66; RESP 16; TEMP 36.9; O2SAT 100; BMI 23.2
[2020-08-23] MEDS: Lactated Ringers 1,000 ML 100 ML IV (06:15)
--- NOTE | 2020-08-23 06:30 | IMM_PTH ---
PATIENT: ERICH ALARCON LOC: EN U#:[id number] AGE/SX: 50/F ROOM: RE08/23/[address]: Dr. Yahir Hancock MD : 1970 BED: DIS: 08/23/2020 SPEC #: [id number] RECD: 08/23/20 13:21 STATUS: CARLOS REAnshul #: [id number] RANJEET: 08/23/20 06:[address]: Yahir Hancock DEPT: IMMUNOHISTOCHEMISTRY RECD BY: Ellen Cordon ENTERED: 08/23/20 13:21 SP TYPE: IMMUNO OTHR DR: Dr. Davion Goldman MD Tissues: B - Stomach, NOS Procedures: H Pylori (initial) PHYSICIAN & INSTITUTION [place] [address] SPECIMEN INFORMATION: Tissue Source: B ? Antrum biopsy Clinical Info: Rectal bleeding Specimen Number: [id number] CPT code: 28686 METHODOLOGY: Deparaffinized sections of prefer/formalin-fixed tissue or PAP/DQ stained slides are incubated with monoclonal/polyclonal antibodies/oligonucleotide probes. Localization is made via biotin free immunoperoxidase method. Appropriate controls are performed and reacted as expected. Results on target cell population are indicated in the following table: RESULTS: ANTIBODY / CLONE RESULT Block B H Pylori (polyclonal) negative These tests were developed and their performance characteristics determined by [facility]. They may not have been cleared or approved by the U.S. Food and Drug Administration. The FDA has determined that such clearance or approval is not necessary. INTERPRETATION: B. Antrum biopsy: Negative for Helicobacter pylori organisms. SJ:mayur 08/24/2020
[2020-08-23 07:05] VITALS: BP 95/69; BP 99/61; PULSE 70; RESP 18; TEMP 35.7; O2SAT 98
--- NOTE | 2020-08-23 07:07 | OP.EGD_ITS ---
Patient Name: Magalie Strauss Procedure Date: 08/23/2020 6:12 AM Date of : 1970 Age: 50 Procedure: Upper GI endoscopy Indications: Epigastric abdominal pain Providers: Yahir Hancock MD Referring MD: Davion Goldman Medicines: See the Anesthesia note for documentation of the administered medications Complications: No immediate complications. Procedure: Pre-Anesthesia Assessment: - Prior to the procedure, a History and Physical was performed, and patient medications and allergies were reviewed. The patient's tolerance of previous anesthesia was also reviewed. The risks and benefits of the procedure and the sedation options and risks were discussed with the patient. All questions were answered, and informed consent was obtained. Prior Anticoagulants: The patient has taken Coumadin (warfarin), last dose was 1 day prior to procedure. ASA Grade Assessment: III - A patient with severe systemic disease. After reviewing the risks and benefits, the patient was deemed in satisfactory condition to undergo the procedure. After obtaining informed consent, the endoscope was passed under direct vision. Throughout the procedure, the patient's blood pressure, pulse, and oxygen saturations were monitored continuously. The gastroscope was introduced through the mouth, and advanced to the second part of duodenum. The upper GI endoscopy was accomplished without difficulty. The patient tolerated the procedure well. Scope In: 6:39:26 AM Scope Out: 6:45:25 AM Total Procedure Duration Time 0 hours 5 minutes 59 seconds Findings: The Z-line was variable and was found 42 cm from the incisors. Biopsies were taken with a cold forceps for histology. The mid esophagus was normal. Biopsies were taken with a cold forceps for histology. A small hiatal hernia was present. Diffuse moderate inflammation characterized by adherent blood was found in the gastric antrum. Biopsies were taken with a cold forceps for histology. The examined duodenum was normal. Biopsies were taken with a cold forceps for histology. Impression: - Z-line variable, 42 cm from the incisors. Biopsied. - Normal mid esophagus. Biopsied. - Small hiatal hernia. - Acute chronic bile gastritis. Biopsied. - Normal examined duodenum. Biopsied. Recommendation: - Discharge patient to home. - Resume previous diet. - Continue present medications. - Use sucralfate tablets 1 gram PO QID. Procedure Code(s): --- Professional --- 22914, Esophagogastroduodenoscopy, flexible, transoral; with biopsy, single or multiple Diagnosis Code(s): --- Professional --- K22.8, Other specified diseases of esophagus K44.9, Diaphragmatic hernia without obstruction or gangrene K29.00, Acute gastritis without bleeding K29.50, Unspecified chronic gastritis without bleeding K29.60, Other gastritis without bleeding R10.13, Epigastric pain CPT copyright 2017 [employer]. All rights reserved. The codes documented in this report are preliminary and upon clinical coder review may be revised to meet current compliance requirements. Yahir Hancock MD 08/23/2020 7:07:33 AM This report has been signed electronically. Number of Addenda: 0 Note Initiated On: 08/23/2020 6:12 AM
--- NOTE | 2020-08-23 07:08 | OP.CCLET_ITS ---
08/23/2020 Davion Goldman [address] [place] [address] Re : Upper GI endoscopy procedure for Magalie Strauss Dear Dr. Goldman This procedure was performed on Sunday, August 23, 2020. My impressions and recommendations are as follows: Impressions : - Z-line variable, 42 cm from the incisors. Biopsied. - Normal mid esophagus. Biopsied. - Small hiatal hernia. - Acute chronic bile gastritis. Biopsied. - Normal examined duodenum. Biopsied. Recommendations : - Discharge patient to home. - Resume previous diet. - Continue present medications. - Use sucralfate tablets 1 gram PO QID. My findings are described in the full procedure note, which is enclosed. If I can be of further assistance, please feel free to contact me at Doctor phone number(s): Work: . Sincerely, Yahir Hancock MD 08/23/2020 7:07:33 AM This report has been signed electronically.
[2020-08-23 07:10] VITALS: BP 90/47; BP 99/61; PULSE 69; RESP 18; O2SAT 98
--- NOTE | 2020-08-23 07:10 | OP.COLON_ITS ---
Patient Name: Magalie Strauss Procedure Date: 08/23/2020 6:46 AM Date of : 1970 Age: 50 Procedure: Colonoscopy Indications: Rectal bleeding Providers: Yahir Hancock MD Referring MD: Davion Goldman Medicines: See the Anesthesia note for documentation of the administered medications Patient Profile: Last Colonoscopy: 2004. Complications: No immediate complications. Procedure: Pre-Anesthesia Assessment: - Prior to the procedure, a History and Physical was performed, and patient medications and allergies were reviewed. The patient's tolerance of previous anesthesia was also reviewed. The risks and benefits of the procedure and the sedation options and risks were discussed with the patient. All questions were answered, and informed consent was obtained. Prior Anticoagulants: The patient has taken Coumadin (warfarin), last dose was 1 day prior to procedure. ASA Grade Assessment: III - A patient with severe systemic disease. After reviewing the risks and benefits, the patient was deemed in satisfactory condition to undergo the procedure. After I obtained informed consent, the scope was passed under direct vision. Throughout the procedure, the patient's blood pressure, pulse, and oxygen saturations were monitored continuously. The Colonoscope was introduced through the anus and advanced to the cecum, identified by appendiceal orifice and ileocecal valve. The colonoscopy was performed without difficulty. The patient tolerated the procedure well. The quality of the bowel preparation was excellent. The ileocecal valve and the appendiceal orifice were photographed. Scope In: 6:48:11 AM Scope Withdrawal Time 0 hours 7 minutes 44 seconds Scope Out: 7:00:45 AM Total Procedure Duration Time 0 hours 12 minutes 34 seconds Findings: The digital rectal exam findings include non-thrombosed internal hemorrhoids and internal hemorrhoids that prolapse with straining, but spontaneously regress to the resting position (Grade II). The colon (entire examined portion) appeared normal. Impression: - Non-thrombosed internal hemorrhoids and internal hemorrhoids that prolapse with straining, but spontaneously regress to the resting position (Grade II) found on digital rectal exam. - The entire examined colon is normal. - No specimens collected. Recommendation: - Discharge patient to home. - Resume previous diet. - Continue present medications. - Repeat colonoscopy in 10 years for screening purposes. Suspect hemorrhoids as source of rectal bleeding/conservattive measures recommended Procedure Code(s): --- Professional --- 47202, Colonoscopy, flexible; diagnostic, including collection of specimen(s) by brushing or washing, when performed (separate procedure) Diagnosis Code(s): --- Professional --- K64.1, Second degree hemorrhoids K62.5, Hemorrhage of anus and rectum CPT copyright 2017 [employer]. All rights reserved. The codes documented in this report are preliminary and upon reinsurance claim analyst review may be revised to meet current compliance requirements. Yahir Hancock MD 08/23/2020 7:10:02 AM This report has been signed electronically. Number of Addenda: 0 Note Initiated On: 08/23/2020 6:46 AM
--- NOTE | 2020-08-23 07:10 | OP.CCLET_ITS ---
08/23/2020 Davion Goldman [address] [place] [address] Re : Colonoscopy procedure for Magalie Strauss Dear Dr. Goldman This procedure was performed on Sunday, August 23, 2020. My impressions and recommendations are as follows: Impressions : - Non-thrombosed internal hemorrhoids and internal hemorrhoids that prolapse with straining, but spontaneously regress to the resting position (Grade II) found on digital rectal exam. - The entire examined colon is normal. - No specimens collected. Recommendations : - Discharge patient to home. - Resume previous diet. - Continue present medications. - Repeat colonoscopy in 10 years for screening purposes. Suspect hemorrhoids as source of rectal bleeding/conservattive measures recommended My findings are described in the full procedure note, which is enclosed. If I can be of further assistance, please feel free to contact me at Doctor phone number(s): Work: . Sincerely, Yahir Hancock MD 08/23/2020 7:10:02 AM This report has been signed electronically.
[2020-08-23 07:15] VITALS: BP 86/70; BP 99/61; PULSE 62; RESP 18; O2SAT 100
[2020-08-23 07:21] VITALS: BP 89/57; BP 99/61; PULSE 60; RESP 18; TEMP 36.2; O2SAT 100
[2020-08-23 08:07] VITALS: BP 99/61
== END 2020-08-23 08:10 ==
LOC: EN 05:28 → AC 05:28
PROVIDERS: PCP Family Medicine; Referring Provider Family Medicine; Visit Provider Surgery
PROC: 0DJD8ZZ Inspection of Lower Intestinal Tract, Via Natural or Artificial Opening Endoscopic (ICD-10-PCS; CPT 45378; principal; 2020-08-23 06:25)
DX: K29.01 Acute gastritis with bleeding (principal); K29.51 Unspecified chronic gastritis with bleeding; K21.00 Gastro-esophageal reflux disease with esophagitis, without bleeding; K44.9 Diaphragmatic hernia without obstruction or gangrene; K22.8 Other specified diseases of esophagus; K64.1 Second degree hemorrhoids; Z20.822 Contact with and (suspected) exposure to COVID-19; M32.9 Systemic lupus erythematosus, unspecified; M35.00 Sjogren syndrome, unspecified; M19.90 Unspecified osteoarthritis, unspecified site; Z79.82 Long term (current) use of aspirin; Z79.01 Long term (current) use of anticoagulants; Z79.52 Long term (current) use of systemic steroids; Z87.11 Personal history of peptic ulcer disease; Z86.73 Personal history of transient ischemic attack (TIA), and cerebral infarction without residual deficits; R79.89 Other specified abnormal findings of blood chemistry; Z86.16 Personal history of COVID-19
CPT/HCPCS: 43239; 45378; 87426; 88305; 88342; C9803; J7120; J2405

== ENCOUNTER → 2020-09-08 09:12 | Outpatient (CLI) | payer MEDICARE, SELFPAY ==
[2020-08-23 06:07] VITALS: BMI 23.2
[2020-09-08 11:15] LABS: Absolute Lymphocyte Count 1.06 X10^3/uL (0.83-4.51); Absolute Neutrophil Count 4.1 X10^3/uL (2.0-7.7); Basophil# 0.02 X10^3/uL; Basophil% 0.3 % (0-1); Eosinophil# 0.08 X10^3/uL; Eosinophils% 1.4 % (0-5); Hematocrit 47.9 % (37-47); Hemoglobin 15.2 g/dL (12.0-15.0); Lymphocyte # 1.06 X10^3/ul (0.83-4.51); Lymphocyte % 18.5 % (19-41); Mean Corp Hgb Conc 31.7 g/dL (32-36); Mean Corpuscular Hgb 32.7 pg (27.0-32.0); Mean Platelet Vol. 11.1 fl (6.2-12.0); Monocyte# 0.51 X10^3/uL; Monocyte% 8.9 % (0-10); NRBC Flagged by Analyzer 0 % (0-5); Neutrophil # 4.06 X10^3/uL (2.7-7.7); Neutrophil % 70.7 % (47-70); Platelet Count 198 K/mm3 (150-450); RBC Distribution Width CV 13.3 % (11.6-14.6); RBC Distribution Width SD 51.3 fl (35.1-43.9); Red Blood Count 4.65 M/mm3 (4.2-5.4); White Blood Count 5.7 K/mm3 (4.4-11.0)
[2020-09-08 11:43] LABS: ALB/GLOB Ratio 1.3 RATIO (0.9-2.4); AST(SGOT) 35 U/L (15-37); Alanine Aminotransfer ALT/SGPT 40 U/L (13-56); Albumin, Serum 3.7 g/dL (3.2-5.0); Alkaline Phosphatase 73 U/L (45-117); Anion Gap 4 (5-15); BUN 14 mg/dL (7-18); BUN/Creat Ratio 15.4 RATIO (10-20); Calcium,Total 9.3 mg/dL (8.5-10.1); Chloride 105 mmol/L (98-107); Creatinine, Serum 0.91 mg/dL (0.55-1.02); EST Glomerular Filtration Rate 69 mL/min (>60); Est Glom Filt Rate - Afr Amer 84 mL/min (>60); Globulin 2.8 g/dL (2.2-4.2); Glucose 66 mg/dL (74-106); Potassium 3.7 mmol/L (3.5-5.1); Protein, Total 6.5 g/dL (6.4-8.2); Sodium Level 142 mmol/L (136-145)
== END ==
PROVIDERS: PCP Family Medicine; Referring Provider Internal Medicine Rheumatology; Visit Provider Internal Medicine Rheumatology
DX: M06.4 Inflammatory polyarthropathy (principal); M35.00 Sjogren syndrome, unspecified; N20.0 Calculus of kidney; D68.8 Other specified coagulation defects; E87.6 Hypokalemia; Z79.899 Other long term (current) drug therapy; Z87.11 Personal history of peptic ulcer disease; Z86.73 Personal history of transient ischemic attack (TIA), and cerebral infarction without residual deficits
CPT/HCPCS: 36415; 80053; 85025

== ENCOUNTER → 2020-11-02 15:35 | Outpatient (CLI) | payer MEDICARE, SELFPAY ==
--- NOTE | 2020-11-02 16:03 | MRI_ITS ---
STUDY: MRI BRAIN WITHOUT CONTRAST REASON FOR EXAM: Female, 50 years old. CHRONIC MIXED HEADACHE SYNDROME TECHNIQUE: Standardized multiplanar fat and water weighted pulse sequences were obtained. COMPARISON: None. FINDINGS: Normal size of the ventricles and extra-axial spaces for the patient''s age. Normal white matter tracts of the supratentorial brain. Normal bilateral basal ganglia. Normal thalami. There is no extra-axial fluid accumulation. Normal flow voids within the major intracranial circulation suggesting patency by spin echo criteria. Normal sella turcica, pituitary gland, infundibular stalk, optic chiasm and hypothalamus. Normal tectal plate and pineal gland. Normal midbrain, kurt and medulla. Normal cerebellum. Normal basal cisterns. Normal bilateral temporal bones. Normal bilateral internal auditory canals. Mildly increased signal intensity within left mastoid air cells which may be consistent with inflammatory changes. No demonstrated orbital abnormality, within the constraints of a routine brain study. Small mucous retention cyst in right maxillary sinus. Minor mucosal thickening left maxillary and bilateral ethmoid air cells.. Normal calvarium and skull base. Normal visualized soft tissue structures. Normal visualized upper cervical spine. MRI/Brain without Contrast IMPRESSION: Normal unenhanced MRI of the brain. Mild bilateral maxillary and ethmoid sinus disease Electronically Signed: Edison Rajput MD at 17:53 EDT , Service support ,
[2020-11-02 17:14] LABS: Erythrocyte Sedimentation Rate 3 mm/hr (0-30)
[2020-11-02 17:51] LABS: CRP < 2.90 mg/L (0.0-3.0)
== END ==
PROVIDERS: PCP Family Medicine; Referring Provider Family Medicine; Visit Provider Family Medicine
DX: G44.89 Other headache syndrome (principal)
CPT/HCPCS: 36415; 70551; 85652; 86140

== ENCOUNTER → 2020-11-27 14:21 | Outpatient (CLI) | payer MEDICARE, SELFPAY ==
[2020-11-27 15:25] LABS: Absolute Lymphocyte Count 0.83 X10^3/uL (0.83-4.51); Absolute Neutrophil Count 3.4 X10^3/uL (2.0-7.7); Basophil# 0.02 X10^3/uL; Basophil% 0.4 % (0-1); Eosinophil# 0.03 X10^3/uL; Eosinophils% 0.7 % (0-5); Hematocrit 46.3 % (37-47); Hemoglobin 15.1 g/dL (12.0-15.0); Lymphocyte # 0.83 X10^3/ul (0.83-4.51); Lymphocyte % 18.2 % (19-41); Mean Corp Hgb Conc 32.6 g/dL (32-36); Mean Corpuscular Hgb 33.1 pg (27.0-32.0); Mean Corpuscular Volume 101.5 fL (81-99); Mean Platelet Vol. 10.5 fl (6.2-12.0); Monocyte# 0.25 X10^3/uL; Monocyte% 5.5 % (0-10); NRBC Flagged by Analyzer 0 % (0-5); Neutrophil # 3.43 X10^3/uL (2.7-7.7); Platelet Count 188 K/mm3 (150-450); RBC Distribution Width CV 13.1 % (11.6-14.6); RBC Distribution Width SD 49.3 fl (35.1-43.9); Red Blood Count 4.56 M/mm3 (4.2-5.4); White Blood Count 4.6 K/mm3 (4.4-11.0)
[2020-11-27 15:58] LABS: ALB/GLOB Ratio 1.3 RATIO (0.9-2.4); AST(SGOT) 27 U/L (15-37); Alanine Aminotransfer ALT/SGPT 31 U/L (13-56); Albumin, Serum 3.8 g/dL (3.2-5.0); Alkaline Phosphatase 65 U/L (45-117); Anion Gap 1 (5-15); BUN 12 mg/dL (7-18); BUN/Creat Ratio 14.6 RATIO (10-20); Calcium,Total 8.9 mg/dL (8.5-10.1); Chloride 106 mmol/L (98-107); Creatinine, Serum 0.82 mg/dL (0.55-1.02); EST Glomerular Filtration Rate 78 mL/min (>60); Est Glom Filt Rate - Afr Amer 94 mL/min (>60); Globulin 2.9 g/dL (2.2-4.2); Glucose 141 mg/dL (74-106); Potassium 3.8 mmol/L (3.5-5.1); Protein, Total 6.7 g/dL (6.4-8.2); Sodium Level 142 mmol/L (136-145)
== END ==
PROVIDERS: PCP Family Medicine; Referring Provider Internal Medicine Rheumatology; Visit Provider Internal Medicine Rheumatology
DX: M06.4 Inflammatory polyarthropathy (principal); M35.00 Sjogren syndrome, unspecified; N20.0 Calculus of kidney; D68.8 Other specified coagulation defects; E87.6 Hypokalemia; L40.9 Psoriasis, unspecified; Z79.899 Other long term (current) drug therapy; Z87.11 Personal history of peptic ulcer disease; Z86.73 Personal history of transient ischemic attack (TIA), and cerebral infarction without residual deficits
CPT/HCPCS: 36415; 80053; 85025

== ENCOUNTER 2021-01-19 01:38 | Emergency (ER) | payer MEDICARE, SELFPAY ==
[2021-01-19 01:39] VITALS: BP 117/65; PULSE 81; RESP 21; TEMP 36.1; O2SAT 99; BMI 23.5
[2021-01-19 01:42] VITALS: BP 111/73; PULSE 80; RESP 16; TEMP 36.1; O2SAT 96
[2021-01-19 02:00] LABS: Absolute Lymphocyte Count 1.71 X10^3/uL (0.83-4.51); Absolute Neutrophil Count 5.8 X10^3/uL (2.0-7.7); Basophil# 0.03 X10^3/uL; Basophil% 0.4 % (0-1); Eosinophil# 0.13 X10^3/uL; Eosinophils% 1.6 % (0-5); Hematocrit 45.9 % (37-47); Hemoglobin 15.2 g/dL (12.0-15.0); Lymphocyte # 1.71 X10^3/ul (0.83-4.51); Lymphocyte % 20.8 % (19-41); Mean Corp Hgb Conc 33.1 g/dL (32-36); Mean Corpuscular Hgb 33.9 pg (27.0-32.0); Mean Corpuscular Volume 102.2 fL (81-99); Mean Platelet Vol. 10.1 fl (6.2-12.0); Monocyte# 0.56 X10^3/uL; Monocyte% 6.8 % (0-10); NRBC Flagged by Analyzer 0 % (0-5); Neutrophil # 5.78 X10^3/uL (2.7-7.7); Neutrophil % 70.2 % (47-70); Platelet Count 188 K/mm3 (150-450); RBC Distribution Width CV 13.5 % (11.6-14.6); RBC Distribution Width SD 50.6 fl (35.1-43.9); Red Blood Count 4.49 M/mm3 (4.2-5.4); White Blood Count 8.2 K/mm3 (4.4-11.0)
--- NOTE | 2021-01-19 02:08 | EX.ED.DYSGE1 ---
HPI History of Present Illness Chief Complaint: General Illness Detail of Chief Complaint: Vertigo, nausea, vomiting Informant: patient Onset/Context/Timing Onset: Today Current Severity: Moderate Maximum Severity: Moderate Narrative Narrative: Patient presents secondary to dizziness that she describes as vertigo along with nausea, vomiting, and diarrhea. She states she woke from sleep about an hour and a half ago with vertigo on steroids. She states she always has some vertigo as an after effect from her prior stroke, but this seemed to be much worse this morning. She reports mild sore throat congestion. is ill with the same. No fever or chills. [facility] Medical History Arthritis Bleeding gastric ulcer Blood clotting disorder CVA (cerebral vascular accident) GERD (gastroesophageal reflux disease) Lupus (systemic lupus erythematosus) Rectal bleeding Sjogren's disease SOB (shortness of breath) TIA (transient ischemic attack) Home Medications aspirin 81 mg PO DAILY 02/05/19 [History Last Taken 02/04/19] calcium carbonate-vitamin D3 1 ea PO DAILY 02/05/19 [History Last Taken Unknown] ergocalciferol (vitamin D2) 50,000 unit PO MO 02/05/19 [History Last Taken Unknown] estradiol 0.05 mg TRANSDERM. MOFR 02/05/19 [History Last Taken Unknown] folic acid 1 mg PO BID 02/05/19 [History Last Taken Unknown] hydrochlorothiazide 12.5 mg PO DAILY 02/05/19 [History Last Taken Unknown] hydroxychloroquine 200 mg PO BID 02/05/19 [History Last Taken Unknown] levocetirizine 5 mg PO DAILY 02/05/19 [History Last Taken Unknown] methotrexate sodium 20 mg PO WIGGINS 02/05/19 [History Last Taken 02/07/19 08:00] npsxqrcx-jlfi-SN-calcium-mins 1 ea PO DAILY 02/05/19 [History Last Taken Unknown] omeprazole 20 mg PO QHS 02/05/19 [History Last Taken Unknown] oxybutynin chloride 5 mg PO BID 02/05/19 [History Last Taken Unknown] potassium chloride 20 meq PO BID 02/05/19 [History Last Taken Unknown] potassium citrate 3 tab PO BID 02/05/19 [History Last Taken Unknown] spironolactone 25 mg PO DAILY 02/05/19 [History Last Taken Unknown] warfarin 10 mg PO SUMOWETHSA 02/05/19 [History Last Taken 02/03/19] warfarin 15 mg PO TUFR 02/05/19 [History Last Taken Unknown] B-complex with vitamin C 1 tablet PO DAILY 07/28/20 [History Last Taken Unknown] coenzyme Q10 75 mg capsule 75 mg PO DAILY 07/28/20 [History Last Taken Unknown] docusate sodium 100 mg capsule 100 mg PO DAILY 07/28/20 [History Last Taken Unknown] fluticasone propionate 50 mcg/actuation nasal spray,suspension 1 spray INTRANASAL DAILY PRN 07/28/20 [History Last Taken Unknown] leucovorin calcium 5 mg tablet 25 mg PO MO tablet 07/28/20 [History Last Taken Unknown] melatonin 5 mg capsule 5 mg PO QHS 07/28/20 [History Last Taken Unknown] nitrofurantoin monohydrate/macrocrystals 100 mg capsule 100 mg PO PRN PRN cap 07/28/20 [History Last Taken Unknown] omega-3 fatty acids 1,000 mg capsule 1,000 mg PO DAILY 07/28/20 [History Last Taken Unknown] prednisolone sodium phosphate 1 % eye drops 1 drp OPHTHALMIC BID PRN 07/28/20 [History Last Taken Unknown] prednisone 5 mg tablet 5 mg PO DAILY 07/28/20 [History Last Taken Unknown] propylene glycol 0.6 % eye drops 1 drp OPHTHALMIC DAILY PRN 07/28/20 [History Last Taken Unknown] psyllium husk 6 gram/6 gram oral powder 1 tbsp PO DAILY 07/28/20 [History Last Taken Unknown] sumatriptan succinate 50 mg tablet 50 mg PO .prn PRN tablet 07/28/20 [History Last Taken Unknown] sucralfate 1 gram tablet 1 g PO .qid #120 tab 09/18/20 [Rx Last Taken Unknown] meclizine [Antivert] 50 mg PO BID #10 tab 01/19/21 [Rx Last Taken Unknown] Allergy/AdvReac Type Severity Reaction Status Date / Time amoxicillin Allergy Hives Verified 01/19/21 01:42 bee venom protein (honey bee) Allergy Hives Verified 01/19/21 01:42 black pepper Allergy Food Verified 01/19/21 01:42 [facility]ergy [facility] [facility] Allergy Hives Verified 01/19/21 01:42 ciprofloxacin [From Cipro] Allergy Hives Verified 01/19/21 01:42 clavulanic acid Allergy Hives Verified 01/19/21 01:42 [From Augmentin] dog dander Allergy Itching Verified 01/19/21 01:42 erythromycin base Allergy Hives Verified 01/19/21 01:42 grass pollen Allergy Itching Verified 01/19/21 01:42 horse dander Allergy Itching Verified 01/19/21 01:42 latex Allergy Rash Verified 01/19/21 01:42 silicone Allergy Other Verified 01/19/21 01:42 sulfamethoxazole Allergy Swelling Verified 01/19/21 01:42 [From Bactrim] trimethoprim [From Bactrim] Allergy Swelling Verified 01/19/21 01:42 vancomycin Allergy Shortness Verified 01/19/21 01:42 of breath wheat Allergy Food Verified 01/19/21 01:42 Allergy ivory soap Allergy Angioedema Uncoded 01/19/21 01:42 Family History Father CVA (cerebral vascular accident) Bleeding disorder Surgical History S/P hysterectomy S/P laparoscopic cholecystectomy S/P sinus surgery Social History Smoking Status: Never smoker alcohol intake: never ROS ROS ED Constitutional Constitutional ED: Denies chills or fever(s) Eyes Eyes: Denies change in vision ENT ENT ED: Reports sore throat and other Details: Congestion Cardiovascular Cardiovascular: Denies chest pain Respiratory/Chest Respiratory/Chest: Denies cough or dyspnea Gastrointestinal Gastrointestinal: Reports diarrhea, nausea and vomiting; Denies abdominal pain Genitourinary Genitourinary ED: Denies dysuria Musculoskeletal Musculoskeletal: Denies back pain Integumentary Denies rash Neurologic Neurologic: Denies headache(s) or weakness Psychiatric Psychiatric: Denies anxiety or depression Allergic/Immunologic Allergic/Immunologic ED: Denies urticaria EXAM Physical Exam Const Vital Signs: 01/19/21 01:39 01/19/21 01:42 01/19/21 01:43 Temperature 97 F L 97 F L Temperature Source Temporal Temporal Pulse Rate 81 80 Respiratory Rate 21 H 16 Respiratory Effort Normal Non-Labored Respiratory Pattern Normal Blood Pressure 117/65 111/73 Blood Pressure Mean 82 85 Pulse Ox 99 96 Oxygen Delivery Method Room Air Room Air 01/19/21 02:38 Temperature Temperature Source Pulse Rate 73 Respiratory Rate 16 Respiratory Effort Respiratory Pattern Blood Pressure 108/49 L Blood Pressure Mean 68 Pulse Ox 97 Oxygen Delivery Method Room Air Positive well nourished and well developed General Appearance ED: well developed Neck supple Chest Wall inspection of chest normal and palpation of chest normal Resp normal respiratory effort and clear to auscultation bilaterally Cardio regular rate and regular rhythm Extremity normal to inspection Neuro Neuro Narrative: Chronic left-sided weakness secondary to prior stroke. Sensorium / Orientation: alert Psych mental status grossly normal Skin no rashes or lesions noted MDM MDM MDM Narrative Medical decision making narrative: Patient initially given Zofran to help control nausea. Lab work obtained. Lab Data Labs: Laboratory Results - last 24 hr 01/19/21 01/19/21 01:47 01:47 WBC 8.2 RBC 4.49 Hgb 15.2 H Hct 45.9 MCV 102.2 H MCH 33.9 H MCHC 33.1 RDW Std Deviation 50.6 H RDW Coeff of Jossie 13.5 Plt Count 188 MPV 10.1 Immature Gran % (Auto) 0.200 Neut % (Auto) 70.2 H Lymph % (Auto) 20.8 [place] % (Auto) 6.8 Eos % (Auto) 1.6 Baso % (Auto) 0.4 Absolute Neuts (auto) 5.8 Absolute Lymphs (auto) 1.71 Nucleated RBC % 0 Sodium 141 Potassium 3.6 Chloride 106 Carbon Dioxide 31.0 Anion Gap 4 L BUN 16 Creatinine 0.98 Estim Creat Clear Calc 66.04 Est GFR (MDRD) Af Amer 77 Est GFR (MDRD) Non-Af 64 BUN/Creatinine Ratio 16.4 Glucose 143 H Calcium 9.0 Total Bilirubin 0.30 Direct Bilirubin 0.09 AST 37 ALT 39 Alkaline Phosphatase 72 Total Protein 6.5 Albumin 3.4 Globulin 3.1 Treatment and Re-Evaluation Comments:: Blood work unremarkable. On repeat evaluation she did note some improvement in her nausea, but still felt too nauseated to attempt taking p.o. Antivert. She was given an IV dose of Reglan and Benadryl. On repeat evaluation at this time she reports significant improvement in her symptoms. She does feel comfortable going home. She will be given a prescription for Antivert that she can try at home if vertigo worsens. Return instructions are provided. Discharge Plan Triage Chief Complaint: General Illness ED Provider: Leonarda Gutierrez Dx/Rx/DC Orders Clinical Impression: Vertigo Instructions: ED BPV Vertigo Prescriptions: New Antivert 50 mg tablet 50 mg PO BID Qty: 10 RF: 0 No Action prednisone 5 mg tablet 5 mg PO DAILY RF: 0 sumatriptan succinate 50 mg tablet 50 mg PO .prn PRN (Reason: migraines) RF: 0 fluticasone propionate [Allergy Relief (fluticasone)] 50 mcg/actuation spray,suspension 1 spray INTRANASAL DAILY PRN (Reason: Nasal Congestion) RF: 0 prednisolone sodium phosphate 1 % eye drops 1 % drops 1 drp OPHTHALMIC BID PRN (Reason: eye) RF: 0 B-complex with vitamin C [Super B Complex-Vitamin C] Tablet 1 tablet PO DAILY RF: 0 melatonin 5 mg capsule 5 mg PO QHS RF: 0 omega-3 fatty acids [Fish Oil Concentrate] 1,000 mg capsule 1,000 mg PO DAILY RF: 0 Ultra CoQ10 75 mg capsule 75 mg PO DAILY RF: 0 Natural Fiber Supplement 6 gram/6 gram powder 1 tbsp PO DAILY RF: 0 docusate sodium [Stool Softener] 100 mg capsule 100 mg PO DAILY RF: 0 nitrofurantoin monohyd/m-cryst [Macrobid] 100 mg capsule 100 mg PO PRN PRN (Reason: uti) RF: 0 Systane Balance 0.6 % drops 1 drp OPHTHALMIC DAILY PRN (Reason: Dry Eye) RF: 0 estradiol 0.1 MG patch 0.05 mg TRANSDERM. MOFR RF: 0 aspirin 81 MG tablet,delayed release (DR/EC) 81 mg PO DAILY RF: 0 spironolactone 25 MG tablet 25 mg PO DAILY RF: 0 potassium chloride 20 MEQ tablet 20 meq PO BID RF: 0 methotrexate sodium 2.5 MG tablet 20 mg PO WIGGINS RF: 0 potassium citrate 10 MEQ tablet extended release 3 tab PO BID RF: 0 warfarin 5 MG tablet 15 mg PO TUFR RF: 0 warfarin 5 MG tablet 10 mg PO SUMOWETHSA RF: 0 omeprazole 20 MG capsule 20 mg PO QHS RF: 0 folic acid 1 MG tablet 1 mg PO BID RF: 0 ergocalciferol (vitamin D2) 50,000 UNIT capsule 50,000 unit PO MO RF: 0 hydroxychloroquine 200 MG tablet 200 mg PO BID RF: 0 oxybutynin chloride 5 MG tablet 5 mg PO BID RF: 0 hydrochlorothiazide 12.5 MG tablet 12.5 mg PO DAILY RF: 0 levocetirizine 5 MG tablet 5 mg PO DAILY RF: 0 calcium carbonate-vitamin D3 1 EACH capsule 1 ea PO DAILY RF: 0 gssamjpe-kydu-ZG-calcium-mins 1 EACH tablet 1 ea PO DAILY RF: 0 leucovorin calcium 5 mg tablet 25 mg PO MO RF: 0 sucralfate [Carafate] 1 gram tablet 1 g PO .qid Qty: 120 RF: 2 Primary Care Provider: Davion Goldman Referrals: Davion Goldman MD [Primary Care Provider] - 1-2 Weeks Disposition Disposition: Home, Self Care
[2021-01-19] MEDS: Ondansetron 4 MG/2 ML Vial IV (02:19)
[2021-01-19 02:38] VITALS: BP 108/49; PULSE 73; RESP 16; O2SAT 97
[2021-01-19 02:39] LABS: AST(SGOT) 37 U/L (15-37); Alanine Aminotransfer ALT/SGPT 39 U/L (13-56); Albumin, Serum 3.4 g/dL (3.2-5.0); Alkaline Phosphatase 72 U/L (45-117); Anion Gap 4 (5-15); BUN 16 mg/dL (7-18); BUN/Creat Ratio 16.4 RATIO (10-20); Bilirubin, Direct 0.09 mg/dL (0.00-0.30); Chloride 106 mmol/L (98-107); Creatinine, Serum 0.98 mg/dL (0.55-1.02); EST Glomerular Filtration Rate 64 mL/min (>60); Est Glom Filt Rate - Afr Amer 77 mL/min (>60); Estimated Creatinine Clearance 66.04 ml/min; Globulin 3.1 g/dL (2.2-4.2); Glucose 143 mg/dL (74-106); Potassium 3.6 mmol/L (3.5-5.1); Protein, Total 6.5 g/dL (6.4-8.2); Sodium Level 141 mmol/L (136-145)
[2021-01-19 03:30] VITALS: RESP 16
[2021-01-19] MEDS: DiphenhydrAMINE 50 MG/ML Syringe 12.5 MG IV (04:18)
[2021-01-19 04:20] VITALS: PULSE 72; RESP 16; O2SAT 98
[2021-01-19] MEDS: Metoclopramide 10 MG/2 ML Vial 5 MG IV (04:20)
[2021-01-19 05:47] VITALS: BP 111/52; PULSE 74; RESP 16; O2SAT 98
== END 2021-01-19 05:49 | disposition home or self-care (01) ==
PROVIDERS: Emergency Provider Emergency Medicine; PCP Family Medicine
DX: R42 Dizziness and giddiness (principal); R11.2 Nausea with vomiting, unspecified; R19.7 Diarrhea, unspecified; Z20.822 Contact with and (suspected) exposure to COVID-19; I69.354 Hemiplegia and hemiparesis following cerebral infarction affecting left non-dominant side; J02.9 Acute pharyngitis, unspecified; M32.9 Systemic lupus erythematosus, unspecified; M35.00 Sjogren syndrome, unspecified; M19.90 Unspecified osteoarthritis, unspecified site; K21.9 Gastro-esophageal reflux disease without esophagitis; Z79.01 Long term (current) use of anticoagulants; Z79.82 Long term (current) use of aspirin; Z79.52 Long term (current) use of systemic steroids; Z79.899 Other long term (current) drug therapy
CPT/HCPCS: 80048; 80076; 85025; 87426; 96361; 96374; 96375; 99283; J7030; A4216; J2405

== ENCOUNTER → 2021-03-01 13:32 | Outpatient (CLI) | payer MEDICARE, SELFPAY ==
[2021-03-01 14:44] LABS: Absolute Lymphocyte Count 1.35 X10^3/uL (0.83-4.51); Absolute Neutrophil Count 3.2 X10^3/uL (2.0-7.7); Basophil# 0.02 X10^3/uL; Basophil% 0.4 % (0-1); Eosinophil# 0.07 X10^3/uL; Eosinophils% 1.4 % (0-5); Hematocrit 47.7 % (37-47); Hemoglobin 16.1 g/dL (12.0-15.0); Lymphocyte # 1.35 X10^3/ul (0.83-4.51); Lymphocyte % 26.7 % (19-41); Mean Corp Hgb Conc 33.8 g/dL (32-36); Mean Corpuscular Hgb 33.5 pg (27.0-32.0); Mean Corpuscular Volume 99.4 fL (81-99); Mean Platelet Vol. 10.4 fl (6.2-12.0); Monocyte# 0.43 X10^3/uL; Monocyte% 8.5 % (0-10); NRBC Flagged by Analyzer 0 % (0-5); Neutrophil # 3.17 X10^3/uL (2.7-7.7); Neutrophil % 62.8 % (47-70); Platelet Count 190 K/mm3 (150-450); RBC Distribution Width CV 12.7 % (11.6-14.6); White Blood Count 5.1 K/mm3 (4.4-11.0)
[2021-03-01 15:05] LABS: ALB/GLOB Ratio 1.2 RATIO (0.9-2.4); AST(SGOT) 32 U/L (15-37); Alanine Aminotransfer ALT/SGPT 31 U/L (13-56); Albumin, Serum 3.7 g/dL (3.2-5.0); Alkaline Phosphatase 73 U/L (45-117); Anion Gap 3 (5-15); BUN 18 mg/dL (7-18); BUN/Creat Ratio 19.1 RATIO (10-20); Calcium,Total 9.2 mg/dL (8.5-10.1); Chloride 104 mmol/L (98-107); Creatinine, Serum 0.94 mg/dL (0.55-1.02); EST Glomerular Filtration Rate 66 mL/min (>60); Est Glom Filt Rate - Afr Amer 80 mL/min (>60); Globulin 3.2 g/dL (2.2-4.2); Glucose 89 mg/dL (74-106); Protein, Total 6.9 g/dL (6.4-8.2); Sodium Level 139 mmol/L (136-145)
== END ==
PROVIDERS: PCP Family Medicine; Referring Provider Internal Medicine Rheumatology; Visit Provider Internal Medicine Rheumatology
DX: M06.4 Inflammatory polyarthropathy (principal); M35.00 Sjogren syndrome, unspecified; N20.0 Calculus of kidney; D68.8 Other specified coagulation defects; E87.6 Hypokalemia; Z79.899 Other long term (current) drug therapy; Z87.11 Personal history of peptic ulcer disease; Z86.73 Personal history of transient ischemic attack (TIA), and cerebral infarction without residual deficits
CPT/HCPCS: 36415; 80053; 85025

== ENCOUNTER 2021-05-17 14:57 | Outpatient (CLI) | payer MEDICARE, SELFPAY ==
[2021-05-17 16:13] LABS: Absolute Lymphocyte Count 1.11 X10^3/uL (0.83-4.51); Absolute Neutrophil Count 3.6 X10^3/uL (2.0-7.7); Basophil# 0.03 X10^3/uL; Basophil% 0.6 % (0-1); Eosinophil# 0.08 X10^3/uL; Eosinophils% 1.5 % (0-5); Hematocrit 46.5 % (37-47); Hemoglobin 15.9 g/dL (12.0-15.0); Lymphocyte # 1.11 X10^3/ul (0.83-4.51); Lymphocyte % 20.9 % (19-41); Mean Corp Hgb Conc 34.2 g/dL (32-36); Mean Corpuscular Volume 99.6 fL (81-99); Mean Platelet Vol. 10.9 fl (6.2-12.0); Monocyte# 0.47 X10^3/uL; Monocyte% 8.9 % (0-10); NRBC Flagged by Analyzer 0 % (0-5); Neutrophil # 3.59 X10^3/uL (2.7-7.7); Neutrophil % 67.7 % (47-70); Platelet Count 180 K/mm3 (150-450); RBC Distribution Width CV 13.2 % (11.6-14.6); RBC Distribution Width SD 48.2 fl (35.1-43.9); Red Blood Count 4.67 M/mm3 (4.2-5.4); White Blood Count 5.3 K/mm3 (4.4-11.0)
[2021-05-17 16:45] LABS: ALB/GLOB Ratio 1.2 RATIO (0.9-2.4); AST(SGOT) 39 U/L (15-37); Alanine Aminotransfer ALT/SGPT 44 U/L (13-56); Albumin, Serum 3.7 g/dL (3.2-5.0); Alkaline Phosphatase 65 U/L (45-117); Anion Gap 3 (5-15); BUN 14 mg/dL (7-18); BUN/Creat Ratio 15.1 RATIO (10-20); Calcium,Total 9.4 mg/dL (8.5-10.1); Chloride 104 mmol/L (98-107); Creatinine, Serum 0.93 mg/dL (0.55-1.02); EST Glomerular Filtration Rate 68 mL/min (>60); Est Glom Filt Rate - Afr Amer 82 mL/min (>60); Glucose 94 mg/dL (74-106); Potassium 3.7 mmol/L (3.5-5.1); Protein, Total 6.7 g/dL (6.4-8.2); Sodium Level 141 mmol/L (136-145)
== END 2021-05-17 23:59 | disposition short-term general hospital (02) ==
LOC: LAB 14:59
PROVIDERS: PCP Family Medicine; Visit Provider Internal Medicine Rheumatology
DX: M06.4 Inflammatory polyarthropathy (principal); M35.00 Sjogren syndrome, unspecified; D68.8 Other specified coagulation defects; N20.0 Calculus of kidney; E87.6 Hypokalemia; L40.9 Psoriasis, unspecified; Z79.899 Other long term (current) drug therapy; Z87.11 Personal history of peptic ulcer disease; Z86.73 Personal history of transient ischemic attack (TIA), and cerebral infarction without residual deficits
CPT/HCPCS: 36415; 80053; 85025

== ENCOUNTER → 2021-08-20 | Outpatient (CLI) | payer MEDICARE, SELFPAY ==
[2021-08-20 14:37] LABS: Absolute Lymphocyte Count 1.09 X10^3/uL (0.83-4.51); Absolute Neutrophil Count 4.7 X10^3/uL (2.0-7.7); Basophil# 0.02 X10^3/uL; Basophil% 0.3 % (0-1); Eosinophil# 0.04 X10^3/uL; Eosinophils% 0.6 % (0-5); Hematocrit 45.7 % (37-47); Hemoglobin 15.2 g/dL (12.0-15.0); Lymphocyte # 1.09 X10^3/ul (0.83-4.51); Lymphocyte % 17.5 % (19-41); Mean Corp Hgb Conc 33.3 g/dL (32-36); Mean Corpuscular Hgb 33.6 pg (27.0-32.0); Mean Corpuscular Volume 101.1 fL (81-99); Mean Platelet Vol. 10.5 fl (6.2-12.0); Monocyte# 0.38 X10^3/uL; Monocyte% 6.1 % (0-10); NRBC Flagged by Analyzer 0 % (0-5); Neutrophil % 75.3 % (47-70); Platelet Count 229 K/mm3 (150-450); RBC Distribution Width SD 48.5 fl (35.1-43.9); Red Blood Count 4.52 M/mm3 (4.2-5.4); White Blood Count 6.2 K/mm3 (4.4-11.0)
[2021-08-20 15:46] LABS: ALB/GLOB Ratio 1.4 RATIO (0.9-2.4); AST(SGOT) 39 U/L (15-37); Alanine Aminotransfer ALT/SGPT 31 U/L (13-56); Albumin, Serum 3.8 g/dL (3.2-5.0); Alkaline Phosphatase 66 U/L (45-117); Anion Gap 6 (5-15); BUN 13 mg/dL (7-18); BUN/Creat Ratio 15.3 RATIO (10-20); Chloride 104 mmol/L (98-107); Creatinine, Serum 0.85 mg/dL (0.55-1.02); EST Glomerular Filtration Rate 75 mL/min (>60); Est Glom Filt Rate - Afr Amer 90 mL/min (>60); Globulin 2.7 g/dL (2.2-4.2); Glucose 96 mg/dL (74-106); Potassium 3.5 mmol/L (3.5-5.1); Protein, Total 6.5 g/dL (6.4-8.2); Sodium Level 139 mmol/L (136-145)
== END | disposition home or self-care (01) ==
LOC: LAB 13:47
PROVIDERS: PCP Family Medicine; Referring Provider Internal Medicine Rheumatology; Visit Provider Internal Medicine Rheumatology
DX: M06.4 Inflammatory polyarthropathy (principal); M35.00 Sjogren syndrome, unspecified; I63.89 Other cerebral infarction; D68.8 Other specified coagulation defects; N20.0 Calculus of kidney; E87.6 Hypokalemia; L40.9 Psoriasis, unspecified; Z87.11 Personal history of peptic ulcer disease; Z79.899 Other long term (current) drug therapy
CPT/HCPCS: 36415; 80053; 85025

== ENCOUNTER → 2021-11-08 | Outpatient (CLI) | payer MEDICARE, SELFPAY ==
[2021-11-08 12:51] LABS: Absolute Lymphocyte Count 1.04 X10^3/uL (0.83-4.51); Absolute Neutrophil Count 4.8 X10^3/uL (2.0-7.7); Basophil# 0.02 X10^3/uL; Basophil% 0.3 % (0-1); Eosinophil# 0.07 X10^3/uL; Eosinophils% 1.1 % (0-5); Hematocrit 44.7 % (37-47); Hemoglobin 15.1 g/dL (12.0-15.0); Lymphocyte # 1.04 X10^3/ul (0.83-4.51); Lymphocyte % 16.4 % (19-41); Mean Corp Hgb Conc 33.8 g/dL (32-36); Mean Corpuscular Hgb 34.1 pg (27.0-32.0); Mean Corpuscular Volume 100.9 fL (81-99); Mean Platelet Vol. 10.5 fl (6.2-12.0); Monocyte# 0.44 X10^3/uL; Monocyte% 6.9 % (0-10); NRBC Flagged by Analyzer 0 % (0-5); Neutrophil # 4.75 X10^3/uL (2.7-7.7); Platelet Count 187 K/mm3 (150-450); RBC Distribution Width CV 13.7 % (11.6-14.6); RBC Distribution Width SD 51.1 fl (35.1-43.9); Red Blood Count 4.43 M/mm3 (4.2-5.4); White Blood Count 6.3 K/mm3 (4.4-11.0)
[2021-11-08 13:10] LABS: ALB/GLOB Ratio 1.4 RATIO (0.9-2.4); AST(SGOT) 49 U/L (15-37); Alanine Aminotransfer ALT/SGPT 45 U/L (13-56); Albumin, Serum 3.7 g/dL (3.2-5.0); Alkaline Phosphatase 62 U/L (45-117); Anion Gap 4 (5-15); BUN 20 mg/dL (7-18); BUN/Creat Ratio 22.8 RATIO (10-20); Calcium,Total 9.4 mg/dL (8.5-10.1); Chloride 105 mmol/L (98-107); Creatinine, Serum 0.88 mg/dL (0.55-1.02); EST Glomerular Filtration Rate 72 mL/min (>60); Est Glom Filt Rate - Afr Amer 87 mL/min (>60); Globulin 2.6 g/dL (2.2-4.2); Glucose 86 mg/dL (74-106); Potassium 3.7 mmol/L (3.5-5.1); Protein, Total 6.3 g/dL (6.4-8.2); Sodium Level 139 mmol/L (136-145)
== END | disposition home or self-care (01) ==
LOC: LAB 11:58
PROVIDERS: PCP Family Medicine; Visit Provider Internal Medicine Rheumatology
DX: M06.4 Inflammatory polyarthropathy (principal); M35.00 Sjogren syndrome, unspecified; D68.8 Other specified coagulation defects; Z79.899 Other long term (current) drug therapy; Z86.73 Personal history of transient ischemic attack (TIA), and cerebral infarction without residual deficits; N20.0 Calculus of kidney; L40.9 Psoriasis, unspecified; E87.6 Hypokalemia; Z87.11 Personal history of peptic ulcer disease
CPT/HCPCS: 36415; 80053; 85025

== ENCOUNTER → 2021-11-22 | Outpatient (CLI) | payer MEDICARE, SELFPAY ==
[2021-11-22 10:12] LABS: Absolute Lymphocyte Count 0.94 X10^3/uL (0.83-4.51); Absolute Neutrophil Count 6.3 X10^3/uL (2.0-7.7); Basophil# 0.02 X10^3/uL; Basophil% 0.3 % (0-1); Eosinophil# 0.05 X10^3/uL; Eosinophils% 0.6 % (0-5); Hematocrit 44.5 % (37-47); Hemoglobin 15.1 g/dL (12.0-15.0); Lymphocyte # 0.94 X10^3/ul (0.83-4.51); Lymphocyte % 11.8 % (19-41); Mean Corp Hgb Conc 33.9 g/dL (32-36); Mean Platelet Vol. 10.1 fl (6.2-12.0); Monocyte% 7.5 % (0-10); NRBC Flagged by Analyzer 0 % (0-5); Neutrophil # 6.32 X10^3/uL (2.7-7.7); Neutrophil % 79.5 % (47-70); Platelet Count 192 K/mm3 (150-450); RBC Distribution Width CV 13.7 % (11.6-14.6); Red Blood Count 4.32 M/mm3 (4.2-5.4)
[2021-11-22 10:23] LABS: International Normalized Ratio 3.6; Prothrombin Time (Protime)PT. 35.9 SECONDS (11.7-14.9)
== END | disposition home or self-care (01) ==
LOC: LAB 09:47
PROVIDERS: PCP Family Medicine; Referring Provider Nurse Practitioner Family; Visit Provider Nurse Practitioner Family
DX: S80.01XA Contusion of right knee, initial encounter (principal)
CPT/HCPCS: 36415; 85025; 85610

== ENCOUNTER 2021-12-03 11:12 | Outpatient (RCR) | payer MEDICARE, SELFPAY ==
[2021-12-03 11:39] LABS: International Normalized Ratio 2.2; Prothrombin Time (Protime)PT. 23.6 SECONDS (11.7-14.9)
== END 2021-12-03 18:00 | disposition home or self-care (01) ==
LOC: LAB 11:12
PROVIDERS: PCP Family Medicine; Referring Provider Family Medicine; Visit Provider Family Medicine
DX: D68.59 Other primary thrombophilia (principal); Z51.81 Encounter for therapeutic drug level monitoring; Z79.01 Long term (current) use of anticoagulants
CPT/HCPCS: 36415; 85610

== ENCOUNTER → 2022-01-21 | Outpatient (CLI) | payer MEDICARE, SELFPAY ==
[2022-01-21 13:26] LABS: Absolute Lymphocyte Count 0.56 X10^3/uL (0.83-4.51); Absolute Neutrophil Count 4.6 X10^3/uL (2.0-7.7); Basophil# 0.01 X10^3/uL; Basophil% 0.2 % (0-1); Eosinophil# 0.01 X10^3/uL; Eosinophils% 0.2 % (0-5); Hematocrit 47.1 % (37-47); Hemoglobin 15.7 g/dL (12.0-15.0); Lymphocyte # 0.56 X10^3/ul (0.83-4.51); Lymphocyte % 10.2 % (19-41); Mean Corp Hgb Conc 33.3 g/dL (32-36); Mean Corpuscular Hgb 34.2 pg (27.0-32.0); Mean Corpuscular Volume 102.6 fL (81-99); Mean Platelet Vol. 10.3 fl (6.2-12.0); Monocyte# 0.32 X10^3/uL; Monocyte% 5.8 % (0-10); NRBC Flagged by Analyzer 0 % (0-5); Neutrophil # 4.57 X10^3/uL (2.7-7.7); Neutrophil % 83.2 % (47-70); POSITIVE DIFFERENTIAL YES; Platelet Count 199 K/mm3 (150-450); RBC Distribution Width CV 13.7 % (11.6-14.6); RBC Distribution Width SD 52.1 fl (35.1-43.9); Red Blood Count 4.59 M/mm3 (4.2-5.4); White Blood Count 5.5 K/mm3 (4.4-11.0)
[2022-01-21 13:30] LABS: Differential Indicated SCAN CRITERIA MET
[2022-01-21 13:53] LABS: ALB/GLOB Ratio 1.2 RATIO (0.9-2.4); AST(SGOT) 54 U/L (15-37); Alanine Aminotransfer ALT/SGPT 64 U/L (13-56); Albumin, Serum 3.6 g/dL (3.2-5.0); Alkaline Phosphatase 85 U/L (45-117); Anion Gap 5 (5-15); BUN 18 mg/dL (7-18); BUN/Creat Ratio 20.1 RATIO (10-20); Calcium,Total 9.1 mg/dL (8.5-10.1); Chloride 104 mmol/L (98-107); Creatinine, Serum 0.89 mg/dL (0.55-1.02); EST Glomerular Filtration Rate 70 mL/min (>60); Est Glom Filt Rate - Afr Amer 85 mL/min (>60); Glucose 68 mg/dL (74-106); Potassium 4.4 mmol/L (3.5-5.1); Protein, Total 6.6 g/dL (6.4-8.2); Sodium Level 142 mmol/L (136-145)
== END | disposition home or self-care (01) ==
LOC: LAB 12:25
PROVIDERS: PCP Family Medicine; Referring Provider Internal Medicine Rheumatology; Visit Provider Internal Medicine Rheumatology
DX: M06.4 Inflammatory polyarthropathy (principal); M35.00 Sjogren syndrome, unspecified; I63.89 Other cerebral infarction; D68.8 Other specified coagulation defects; N20.0 Calculus of kidney; E87.6 Hypokalemia; L40.9 Psoriasis, unspecified; Z87.11 Personal history of peptic ulcer disease; Z79.899 Other long term (current) drug therapy
CPT/HCPCS: 36415; 80053; 85025

== ENCOUNTER → 2022-02-18 | Outpatient (CLI) | payer MEDICARE, SELFPAY ==
[2022-02-18 10:48] LABS: ALB/GLOB Ratio 1.4 RATIO (0.9-2.4); AST(SGOT) 47 U/L (15-37); Alanine Aminotransfer ALT/SGPT 57 U/L (13-56); Alkaline Phosphatase 73 U/L (45-117); Anion Gap 3 (5-15); BUN 17 mg/dL (7-18); BUN/Creat Ratio 17.5 RATIO (10-20); Calcium,Total 9.5 mg/dL (8.5-10.1); Chloride 105 mmol/L (98-107); Creatinine, Serum 0.97 mg/dL (0.55-1.02); EST Glomerular Filtration Rate 64 mL/min (>60); Est Glom Filt Rate - Afr Amer 77 mL/min (>60); Globulin 2.9 g/dL (2.2-4.2); Glucose 96 mg/dL (74-106); Potassium 4.3 mmol/L (3.5-5.1); Protein, Total 6.9 g/dL (6.4-8.2); Sodium Level 141 mmol/L (136-145)
== END | disposition home or self-care (01) ==
LOC: LAB 09:23
PROVIDERS: PCP Family Medicine; Referring Provider Internal Medicine Rheumatology; Visit Provider Internal Medicine Rheumatology
DX: M06.4 Inflammatory polyarthropathy (principal); M35.00 Sjogren syndrome, unspecified; D68.8 Other specified coagulation defects; Z79.899 Other long term (current) drug therapy; E87.6 Hypokalemia
CPT/HCPCS: 36415; 80053

== ENCOUNTER → 2022-03-25 | Outpatient (CLI) | payer MEDICARE, SELFPAY ==
[2022-03-25 13:32] LABS: ALB/GLOB Ratio 1.3 RATIO (0.9-2.4); AST(SGOT) 68 U/L (15-37); Alanine Aminotransfer ALT/SGPT 73 U/L (13-56); Albumin, Serum 3.9 g/dL (3.2-5.0); Alkaline Phosphatase 69 U/L (45-117); Anion Gap 5 (5-15); BUN 19 mg/dL (7-18); BUN/Creat Ratio 20.8 RATIO (10-20); Calcium,Total 9.5 mg/dL (8.5-10.1); Chloride 104 mmol/L (98-107); Creatinine, Serum 0.92 mg/dL (0.55-1.02); EST Glomerular Filtration Rate 68 mL/min (>60); Est Glom Filt Rate - Afr Amer 83 mL/min (>60); Globulin 2.9 g/dL (2.2-4.2); Glucose 94 mg/dL (74-106); Potassium 4.1 mmol/L (3.5-5.1); Protein, Total 6.8 g/dL (6.4-8.2); Sodium Level 141 mmol/L (136-145)
== END | disposition home or self-care (01) ==
LOC: LAB 11:54
PROVIDERS: PCP Family Medicine; Referring Provider Internal Medicine Rheumatology; Visit Provider Internal Medicine Rheumatology
DX: M06.4 Inflammatory polyarthropathy (principal); Z79.899 Other long term (current) drug therapy
CPT/HCPCS: 36415; 80053

== ENCOUNTER → 2022-04-04 | Outpatient (CLI) | payer MEDICARE, SELFPAY ==
[2022-04-04 11:45] LABS: Ferritin 26 ng/mL (8-252); Iron 75 ug/dL (50-170); Iron Binding Capacity,Total 356 ug/dL (250-450)
== END | disposition home or self-care (01) ==
PROVIDERS: PCP Family Medicine; Visit Provider Family Medicine
DX: R79.89 Other specified abnormal findings of blood chemistry (principal)
CPT/HCPCS: 36415; 82728; 83540; 83550

== ENCOUNTER → 2022-04-10 | Outpatient (CLI) | payer MEDICARE, SELFPAY ==
--- NOTE | 2022-04-10 08:40 | US_ITS ---
STUDY: ABDOMINAL ULTRASOUND - RIGHT UPPER QUADRANT REASON FOR VISIT: Female, 51 years old ELEVATED LIVER ENZYMES TECHNIQUE: Ultrasound evaluation of the right upper quadrant was performed with real-time and static butler-scale imaging. TECHNICAL QUALITY: Adequate. COMPARISON: CT May 18, 2019 FINDINGS: Liver: The liver measures 13.4 cm. There is coarse echogenicity of the liver. There is visualized mild intrahepatic ductal dilatation. Extrahepatic duct measures up to 4 mm. The intrahepatic duct measures possibly up to 4 mm. There is hepatic color flow. The direction of portal flow is hepatopetal. There is no demonstrated mass lesion. Gallbladder: Gallbladder is been surgically removed. Common Bile Duct (C.B.D.): The common bile duct measures 7 mm. Pancreas: Normal size of the head, body and tail of the pancreas. There is normal echogenicity of the pancreas. There is no demonstrated pancreatic mass or cyst. Right Kidney: Normal size of the right kidney. The right kidney measures 11.4 x 6.0 x 3.7 cm. Normal renal cortex. The right cortex measures 1.0 cm. There is no demonstrated renal mass or cyst. Is visualized mild right pelviectasis. There is a stone in the right kidney measuring approximately 5 mm. US/Liver IMPRESSION: Mild intrahepatic ductal dilatation status post cholecystectomy similar to prior study. Mild coarse echotexture of the liver. Could Consider follow-up CT abdomen and pelvis and a liver mass protocol when appropriate. Various status post cholecystectomy. No hydronephrosis. Small stone right kidney. Electronically Signed: Agueda Moe MD at 20:58 EST ,
== END | disposition home or self-care (01) ==
LOC: US 08:38
PROVIDERS: PCP Family Medicine; Referring Provider Internal Medicine Rheumatology; Visit Provider Internal Medicine Rheumatology
DX: N20.0 Calculus of kidney (principal); M06.4 Inflammatory polyarthropathy; M35.00 Sjogren syndrome, unspecified; Z79.899 Other long term (current) drug therapy
CPT/HCPCS: 76705

== ENCOUNTER → 2022-05-21 | Outpatient (CLI) | payer MEDICARE, SELFPAY ==
[2022-05-21 10:57] LABS: Absolute Lymphocyte Count 1.11 X10^3/uL (0.83-4.51); Absolute Neutrophil Count 3.4 X10^3/uL (2.0-7.7); Basophil# 0.03 X10^3/uL; Basophil% 0.6 % (0-1); Eosinophil# 0.04 X10^3/uL; Eosinophils% 0.8 % (0-5); Hematocrit 47.9 % (37-47); Hemoglobin 15.9 g/dL (12.0-15.0); Lymphocyte # 1.11 X10^3/ul (0.83-4.51); Lymphocyte % 22.1 % (19-41); Mean Corp Hgb Conc 33.2 g/dL (32-36); Mean Corpuscular Hgb 33.5 pg (27.0-32.0); Mean Corpuscular Volume 100.8 fL (81-99); Mean Platelet Vol. 10.5 fl (6.2-12.0); Monocyte# 0.42 X10^3/uL; Monocyte% 8.4 % (0-10); NRBC Flagged by Analyzer 0 % (0-5); Neutrophil % 67.7 % (47-70); Platelet Count 176 K/mm3 (150-450); RBC Distribution Width CV 12.3 % (11.6-14.6); RBC Distribution Width SD 46.4 fl (35.1-43.9); Red Blood Count 4.75 M/mm3 (4.2-5.4)
[2022-05-21 11:30] LABS: ALB/GLOB Ratio 1.4 RATIO (0.9-2.4); AST(SGOT) 35 U/L (15-37); Alanine Aminotransfer ALT/SGPT 35 U/L (13-56); Albumin, Serum 3.8 g/dL (3.2-5.0); Alkaline Phosphatase 66 U/L (45-117); Anion Gap 4 (5-15); BUN 18 mg/dL (7-18); BUN/Creat Ratio 16.1 RATIO (10-20); Calcium,Total 9.2 mg/dL (8.5-10.1); Chloride 105 mmol/L (98-107); Creatinine, Serum 1.12 mg/dL (0.55-1.02); EST Glomerular Filtration Rate 54 mL/min (>60); Est Glom Filt Rate - Afr Amer 65 mL/min (>60); Globulin 2.8 g/dL (2.2-4.2); Glucose 97 mg/dL (74-106); Potassium 4.7 mmol/L (3.5-5.1); Protein, Total 6.6 g/dL (6.4-8.2); Sodium Level 142 mmol/L (136-145)
== END | disposition home or self-care (01) ==
LOC: LAB 10:09
PROVIDERS: PCP Family Medicine; Visit Provider Internal Medicine Rheumatology
DX: M06.4 Inflammatory polyarthropathy (principal); M35.00 Sjogren syndrome, unspecified; I63.89 Other cerebral infarction; D68.8 Other specified coagulation defects; N20.0 Calculus of kidney; E87.6 Hypokalemia; L40.9 Psoriasis, unspecified; Z87.11 Personal history of peptic ulcer disease; Z79.899 Other long term (current) drug therapy
CPT/HCPCS: 36415; 80053; 85025

== ENCOUNTER → 2022-07-18 | Outpatient (CLI) | payer MEDICARE, SELFPAY ==
[2022-07-18 13:40] LABS: Absolute Lymphocyte Count 1.24 X10^3/uL (0.83-4.51); Absolute Neutrophil Count 3.8 X10^3/uL (2.0-7.7); Basophil# 0.03 X10^3/uL; Basophil% 0.5 % (0-1); Eosinophil# 0.06 X10^3/uL; Eosinophils% 1.1 % (0-5); Hematocrit 46.5 % (37-47); Hemoglobin 15.6 g/dL (12.0-15.0); Lymphocyte # 1.24 X10^3/ul (0.83-4.51); Lymphocyte % 22.3 % (19-41); Mean Corp Hgb Conc 33.5 g/dL (32-36); Mean Corpuscular Hgb 34.1 pg (27.0-32.0); Mean Corpuscular Volume 101.5 fL (81-99); Mean Platelet Vol. 10.2 fl (6.2-12.0); Monocyte# 0.44 X10^3/uL; Monocyte% 7.9 % (0-10); NRBC Flagged by Analyzer 0 % (0-5); Neutrophil # 3.78 X10^3/uL (2.7-7.7); Neutrophil % 67.8 % (47-70); Platelet Count 184 K/mm3 (150-450); RBC Distribution Width CV 13.6 % (11.6-14.6); RBC Distribution Width SD 50.9 fl (35.1-43.9); Red Blood Count 4.58 M/mm3 (4.2-5.4); White Blood Count 5.6 K/mm3 (4.4-11.0)
[2022-07-18 14:12] LABS: ALB/GLOB Ratio 1.4 RATIO (0.9-2.4); AST(SGOT) 44 U/L (15-37); Alanine Aminotransfer ALT/SGPT 44 U/L (13-56); Albumin, Serum 3.7 g/dL (3.2-5.0); Alkaline Phosphatase 69 U/L (45-117); Anion Gap 5 (5-15); BUN 19 mg/dL (7-18); BUN/Creat Ratio 18.6 RATIO (10-20); Calcium,Total 9.1 mg/dL (8.5-10.1); Chloride 103 mmol/L (98-107); Creatinine, Serum 1.02 mg/dL (0.55-1.02); EST Glomerular Filtration Rate 60 mL/min (>60); Est Glom Filt Rate - Afr Amer 73 mL/min (>60); Globulin 2.6 g/dL (2.2-4.2); Glucose 96 mg/dL (74-106); Potassium 3.9 mmol/L (3.5-5.1); Protein, Total 6.3 g/dL (6.4-8.2); Sodium Level 141 mmol/L (136-145)
== END | disposition home or self-care (01) ==
LOC: LAB 13:19
PROVIDERS: PCP Family Medicine; Visit Provider Internal Medicine Rheumatology
DX: M06.4 Inflammatory polyarthropathy (principal); Z79.899 Other long term (current) drug therapy
CPT/HCPCS: 36415; 80053; 85025

== ENCOUNTER → 2022-08-15 | Outpatient (CLI) | payer MEDICARE, SELFPAY ==
[2022-08-15 17:16] LABS: ALB/GLOB Ratio 1.4 RATIO (0.9-2.4); AST(SGOT) 40 U/L (15-37); Alanine Aminotransfer ALT/SGPT 43 U/L (13-56); Albumin, Serum 3.7 g/dL (3.2-5.0); Alkaline Phosphatase 65 U/L (45-117); Anion Gap 2 (5-15); BUN 20 mg/dL (7-18); BUN/Creat Ratio 19.8 RATIO (10-20); Chloride 105 mmol/L (98-107); Creatinine, Serum 1.01 mg/dL (0.55-1.02); EST Glomerular Filtration Rate 61 mL/min (>60); Est Glom Filt Rate - Afr Amer 74 mL/min (>60); Globulin 2.6 g/dL (2.2-4.2); Glucose 175 mg/dL (74-106); Potassium 3.5 mmol/L (3.5-5.1); Protein, Total 6.3 g/dL (6.4-8.2); Sodium Level 138 mmol/L (136-145)
== END | disposition home or self-care (01) ==
LOC: LAB 15:25
PROVIDERS: PCP Family Medicine; Referring Provider Internal Medicine Rheumatology; Visit Provider Internal Medicine Rheumatology
DX: M06.4 Inflammatory polyarthropathy (principal); Z79.899 Other long term (current) drug therapy
CPT/HCPCS: 36415; 80053

== ENCOUNTER → 2022-11-15 | Outpatient (CLI) | payer MEDICARE, SELFPAY ==
[2022-11-15 11:54] LABS: ALB/GLOB Ratio 1.3 RATIO (0.9-2.4); AST(SGOT) 48 U/L (15-37); Alanine Aminotransfer ALT/SGPT 41 U/L (13-56); Albumin, Serum 3.8 g/dL (3.2-5.0); Alkaline Phosphatase 70 U/L (45-117); Anion Gap 3 (5-15); BUN 18 mg/dL (7-18); BUN/Creat Ratio 17.5 RATIO (10-20); Chloride 103 mmol/L (98-107); Creatinine, Serum 1.03 mg/dL (0.55-1.02); EST Glomerular Filtration Rate 60 mL/min (>60); Est Glom Filt Rate - Afr Amer 72 mL/min (>60); Globulin 2.9 g/dL (2.2-4.2); Glucose 91 mg/dL (74-106); Potassium 3.8 mmol/L (3.5-5.1); Protein, Total 6.7 g/dL (6.4-8.2); Sodium Level 139 mmol/L (136-145)
== END | disposition home or self-care (01) ==
LOC: LAB 09:49
PROVIDERS: PCP Family Medicine; Referring Provider Internal Medicine Rheumatology; Visit Provider Internal Medicine Rheumatology
DX: M06.4 Inflammatory polyarthropathy (principal); Z79.899 Other long term (current) drug therapy
CPT/HCPCS: 36415; 80053

== ENCOUNTER → 2023-01-20 | Outpatient (CLI) | payer MEDICARE, SELFPAY ==
[2023-01-20 10:16] LABS: Absolute Neutrophil Count 4.4 X10^3/uL (2.0-7.7); Basophil# 0.03 X10^3/uL; Basophil% 0.5 % (0-1); Eosinophil# 0.09 X10^3/uL; Eosinophils% 1.5 % (0-5); Hematocrit 49.6 % (37-47); Hemoglobin 16.4 g/dL (12.0-15.0); Lymphocyte % 15.2 % (19-41); Mean Corp Hgb Conc 33.1 g/dL (32-36); Mean Corpuscular Hgb 34.3 pg (27.0-32.0); Mean Corpuscular Volume 103.8 fL (81-99); Mean Platelet Vol. 10.5 fl (6.2-12.0); Monocyte# 0.53 X10^3/uL; Monocyte% 8.9 % (0-10); NRBC Flagged by Analyzer 0 % (0-5); Neutrophil # 4.37 X10^3/uL (2.7-7.7); Neutrophil % 73.7 % (47-70); Platelet Count 171 K/mm3 (150-450); RBC Distribution Width CV 12.9 % (11.6-14.6); RBC Distribution Width SD 49.5 fl (35.1-43.9); Red Blood Count 4.78 M/mm3 (4.2-5.4); White Blood Count 5.9 K/mm3 (4.4-11.0)
[2023-01-20 11:29] LABS: ALB/GLOB Ratio 1.3 RATIO (0.9-2.4); AST(SGOT) 39 U/L (15-37); Alanine Aminotransfer ALT/SGPT 36 U/L (13-56); Albumin, Serum 3.7 g/dL (3.2-5.0); Alkaline Phosphatase 68 U/L (45-117); Anion Gap 1 (5-15); BUN 14 mg/dL (7-18); BUN/Creat Ratio 13.6 RATIO (10-20); Calcium,Total 9.3 mg/dL (8.5-10.1); Chloride 107 mmol/L (98-107); Creatinine, Serum 1.03 mg/dL (0.55-1.02); EST Glomerular Filtration Rate 59 mL/min (>60); Est Glom Filt Rate - Afr Amer 72 mL/min (>60); Globulin 2.8 g/dL (2.2-4.2); Glucose 76 mg/dL (74-106); Potassium 4.1 mmol/L (3.5-5.1); Protein, Total 6.5 g/dL (6.4-8.2); Sodium Level 143 mmol/L (136-145)
== END | disposition home or self-care (01) ==
LOC: LAB 09:42
PROVIDERS: PCP Family Medicine; Referring Provider Internal Medicine Rheumatology; Visit Provider Internal Medicine Rheumatology
DX: M06.4 Inflammatory polyarthropathy (principal); M35.00 Sjogren syndrome, unspecified; Z79.899 Other long term (current) drug therapy
CPT/HCPCS: 36415; 80053; 85025

== ENCOUNTER → 2023-04-10 | Outpatient (CLI) | payer MEDICARE, SELFPAY ==
[2023-04-10 12:22] LABS: Absolute Lymphocyte Count 1.08 X10^3/uL (0.83-4.51); Basophil# 0.03 X10^3/uL; Basophil% 0.6 % (0-1); Eosinophil# 0.08 X10^3/uL; Eosinophils% 1.7 % (0-5); Hemoglobin 15.7 g/dL (12.0-15.0); Lymphocyte # 1.08 X10^3/ul (0.83-4.51); Lymphocyte % 23.4 % (19-41); Mean Corp Hgb Conc 32.7 g/dL (32-36); Mean Corpuscular Hgb 33.3 pg (27.0-32.0); Mean Corpuscular Volume 101.9 fL (81-99); Mean Platelet Vol. 10.7 fl (6.2-12.0); Monocyte# 0.46 X10^3/uL; NRBC Flagged by Analyzer 0 % (0-5); Neutrophil # 2.95 X10^3/uL (2.7-7.7); Neutrophil % 63.9 % (47-70); Platelet Count 172 K/mm3 (150-450); RBC Distribution Width CV 12.9 % (11.6-14.6); RBC Distribution Width SD 48.7 fl (35.1-43.9); Red Blood Count 4.71 M/mm3 (4.2-5.4); White Blood Count 4.6 K/mm3 (4.4-11.0)
[2023-04-10 13:08] LABS: ALB/GLOB Ratio 1.2 RATIO (0.9-2.4); AST(SGOT) 35 U/L (15-37); Alanine Aminotransfer ALT/SGPT 41 U/L (13-56); Albumin, Serum 3.6 g/dL (3.2-5.0); Alkaline Phosphatase 64 U/L (45-117); Anion Gap 1 (5-15); BUN 15 mg/dL (7-18); BUN/Creat Ratio 15.1 RATIO (10-20); Calcium,Total 9.7 mg/dL (8.5-10.1); Chloride 107 mmol/L (98-107); Creatinine, Serum 0.99 mg/dL (0.55-1.02); EST Glomerular Filtration Rate 62 mL/min (>60); Est Glom Filt Rate - Afr Amer 75 mL/min (>60); Globulin 2.9 g/dL (2.2-4.2); Glucose 95 mg/dL (74-106); Potassium 4.5 mmol/L (3.5-5.1); Protein, Total 6.5 g/dL (6.4-8.2); Sodium Level 142 mmol/L (136-145)
== END | disposition home or self-care (01) ==
LOC: LAB 11:46
PROVIDERS: PCP Family Medicine; Referring Provider Internal Medicine Rheumatology; Visit Provider Internal Medicine Rheumatology
DX: M06.4 Inflammatory polyarthropathy (principal); M35.00 Sjogren syndrome, unspecified; Z79.899 Other long term (current) drug therapy
CPT/HCPCS: 36415; 80053; 85025

== ENCOUNTER 2023-07-01 19:46 | Emergency (ER) | payer MEDICARE, SELFPAY ==
[2023-07-01 19:52] VITALS: BP 117/71; PULSE 99; RESP 18; TEMP 36.5; O2SAT 96; BMI 22.1
--- NOTE | 2023-07-01 19:56 | EKG12_ITS ---
Test Reason : DYSRHYTHMIA Blood Pressure : / mmHG Vent. Rate : 097 BPM Atrial Rate : 097 BPM P-R Int : 118 ms QRS Dur : 072 ms QT Int : 344 ms P-R-T Axes : 074 028 039 degrees QTc Int : 436 ms Normal sinus rhythm Possible Left atrial enlargement Nonspecific ST abnormality Abnormal ECG Confirmed by Vladimir Hughes ([id number]), newspaper copy editor ELOY RICKS ([id number]) on 07/02/2023 9:43:55 AM Referred By: Confirmed By:Vladimir Hughes
[2023-07-01 20:37] LABS: Absolute Lymphocyte Count 1.05 X10^3/uL (0.83-4.51); Basophil# 0.06 X10^3/uL; Basophil% 0.4 % (0-1); Eosinophil# 0.15 X10^3/uL; Hematocrit 42.5 % (37-47); Hemoglobin 14.3 g/dL (12.0-15.0); Lymphocyte # 1.05 X10^3/ul (0.83-4.51); Lymphocyte % 7.3 % (19-41); Mean Corp Hgb Conc 33.6 g/dL (32-36); Mean Corpuscular Hgb 33.4 pg (27.0-32.0); Mean Corpuscular Volume 99.3 fL (81-99); Mean Platelet Vol. 10.4 fl (6.2-12.0); Monocyte# 1.19 X10^3/uL; Monocyte% 8.2 % (0-10); NRBC Flagged by Analyzer 0 % (0-5); Neutrophil # 11.96 X10^3/uL (2.7-7.7); Neutrophil % 82.7 % (47-70); Platelet Count 203 K/mm3 (150-450); RBC Distribution Width CV 12.7 % (11.6-14.6); RBC Distribution Width SD 45.7 fl (35.1-43.9); Red Blood Count 4.28 M/mm3 (4.2-5.4); White Blood Count 14.5 K/mm3 (4.4-11.0)
[2023-07-01 20:40] VITALS: BP 107/66; PULSE 96; RESP 16; O2SAT 95
--- NOTE | 2023-07-01 20:50 | RAD_ITS ---
INDICATION: chest pain EXAMINATION/TECHNIQUE: X-RAY - XR Chest 1 View COMPARISON: 11/15/2019. FINDINGS: Vague patchy opacities in the bilateral lung bases. Tortuous and calcified thoracic aorta. The heart is mildly enlarged. No pleural effusion or pneumothorax. Degenerative changes of the thoracic spine. RAD/Chest 1 View (Portable) IMPRESSION: Vague patchy opacities in the bilateral lung bases could represent atelectasis versus infection. Electronically Signed: Dannie Garza MD at 22:38 EST ,
[2023-07-01 20:51] LABS: International Normalized Ratio 1.6; Prothrombin Time (Protime)PT. 19.4 SECONDS (11.7-14.9)
[2023-07-01 20:55] LABS: Anion Gap 1 (5-15); BUN 17 mg/dL (7-18); BUN/Creat Ratio 18.8 RATIO (10-20); Calcium,Total 9.3 mg/dL (8.5-10.1); Chloride 104 mmol/L (98-107); Creatinine, Serum 0.91 mg/dL (0.55-1.02); EST Glomerular Filtration Rate 69 mL/min (>60); Est Glom Filt Rate - Afr Amer 83 mL/min (>60); Estimated Creatinine Clearance 68.73 ml/min; Glucose 109 mg/dL (74-106); Potassium 3.6 mmol/L (3.5-5.1); Sodium Level 140 mmol/L (136-145); Troponin-I HS (w/2H Reflex) 4 pg/mL (3.0-54.0)
[2023-07-01 21:15] VITALS: BP 107/66; PULSE 105; RESP 22; O2SAT 93
--- NOTE | 2023-07-01 21:27 | CT_ITS ---
INDICATION: pulmonary embolism EXAMINATION: CTA Chest WO/W Contrast Injection TECHNIQUE: Helically acquired images were obtained of the chest following administration of IV contrast. A radiation dose optimization technique was used for this scan. 3D postprocessing images including MIPS were reviewed. IV Contrast dosage and agent: IV 100mL Isovue-370 COMPARISON: 11/22/2019. FINDINGS: Lungs: There is smooth anterior and lateral tracheal wall thickening with sparing of the posterior membranous wall and accompanying tracheal cartilage calcification extending into the bronchioles. No severe tracheal stenosis. There is also mild bronchiectasis and bronchial wall thickening. Subtle groundglass and reticular opacities in the bilateral lung bases. Mediastinum: The heart is mildly enlarged. There is mediastinal and right hilar lymphadenopathy. Mild aortic arch and coronary artery calcifications. Questionable very small volume nonocclusive clot seen in the left upper and left lower lobe subsegmental pulmonary arteries. No evidence of right heart strain. Pleura: Unremarkable Bones/Soft tissues: Mild scattered degenerative changes of the visualized spine. Upper abdomen: No visualized abnormalities in the upper abdomen. CT/CTA Chest W/WO Contrast IMPRESSION: Questionable very small volume nonocclusive acute pulmonary emboli in the left lower lobe and upper lobe subsegmental pulmonary arteries. No evidence of right heart strain. Smooth anterior and lateral tracheal wall thickening with sparing of the posterior membranous wall and accompanying tracheal cartilage calcification extending into the bronchioles. No severe tracheal stenosis. 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 Subtle groundglass and reticular opacities in the bilateral lung bases could represent atelectasis, infection or inflammation. Electronically Signed: Dannie Garza MD at 23:13 EST ,
--- NOTE | 2023-07-01 21:32 | EDS_ITS ---
HPI History of Present Illness Chief Complaint: Chest Pain Informant: patient and spouse/S.O. Narrative Narrative: 53-year-old female presenting to the emergency department with chief complaint of chest pain. Patient states that at the end of May she began to have a sore throat. This led to extreme congestion . Her was treated with an antibiotic for sinusitis and a few days ago she also began azithromycin for sinusitis. She states sore throat never very went away. Due to her Sjogren's she states it is very hard for her to cough up any phlegm out of her lungs but she states she can feel it in there . She has not had fever. She is on Co umadin for blood clot disorder due to lupus anticoagulant. The patient states that today she began to have pain in the lower anterior left chest that radiates straight through into the left low back. It is worse with cough. She notes a chronic fight with pleurisy but this feels worse. She states that she did cut her Coumadin in half when she began the antibiotic as it typically makes her INR elevate. Is also reported the patient takes prednisone methotrexate and hydroxychloroquine amongst other medications. [facility] Medical History Arthritis Bleeding gastric ulcer Blood clotting disorder CVA (cerebral vascular accident) GERD (gastroesophageal reflux disease) Lupus (systemic lupus erythematosus) Rectal bleeding Sjogren's disease SOB (shortness of breath) TIA (transient ischemic attack) Home Medications aspirin 81 mg tablet,delayed release 81 mg PO DAILY blood thinner 02/05/19 [History Last Taken 02/04/19] calcium carbonate 600 mg-vitamin D3 12.5 mcg (500 unit) capsule 1 ea PO DAILY supplement 02/05/19 [History Last Taken Unknown] ergocalciferol (vitamin D2) 1,250 mcg (50,000 unit) capsule 50,000 unit PO MO 02/05/19 [History Last Taken Unknown] estradiol 0.1 mg/24 hr semiweekly transdermal patch 0.05 mg TRANSDERM. MOFR 02/05/19 [History Last Taken Unknown] folic acid 1 mg tablet 1 mg PO BID 02/05/19 [History Last Taken Unknown] hydrochlorothiazide 12.5 mg tablet 12.5 mg PO DAILY 02/05/19 [History Last Taken Unknown] hydroxychloroquine 200 mg tablet 200 mg PO BID 02/05/19 [History Last Taken Unknown] levocetirizine 5 mg tablet 5 mg PO DAILY 02/05/19 [History Last Taken Unknown] methotrexate sodium 2.5 mg tablet 12.5 mg PO WIGGINS 02/05/19 [History Last Taken 02/07/19 08:00] multivit-iron 18 mg-folic acid 400 mcg-calcium 500 mg-minerals tablet 1 ea PO DAILY 02/05/19 [History Last Taken Unknown] omeprazole 20 mg capsule,delayed release 20 mg PO QHS GERD 02/05/19 [History Last Taken Unknown] oxybutynin chloride 5 mg tablet 5 mg PO BID 02/05/19 [History Last Taken Unknown] potassium chloride 20 mEq tablet,extended release(part/cryst) 20 meq PO BID 02/05/19 [History Last Taken Unknown] potassium citrate 10 mEq (1,080 mg) tablet,extended release 10 meq PO BID 02/05/19 [History Last Taken Unknown] spironolactone 25 mg tablet 25 mg PO DAILY 02/05/19 [History Last Taken Unknown] B-complex with vitamin C (Super B Complex-Vitamin C tablet) 1 tablet PO DAILY 07/28/20 [History Last Taken Unknown] coenzyme Q10 75 mg capsule (Ultra CoQ10) 75 mg PO DAILY 07/28/20 [History Last Taken Unknown] docusate sodium 100 mg capsule (Stool Softener) 100 mg PO DAILY 07/28/20 [History Last Taken Unknown] fluticasone propionate 50 mcg/actuation nasal spray,suspension (Allergy Relief (fluticasone)) 1 spray intranasal DAILY PRN Nasal Congestion 07/28/20 [History Last Taken Unknown] leucovorin calcium 5 mg tablet 25 mg PO MO 07/28/20 [History Last Taken Unknown] melatonin 5 mg capsule 5 mg PO QHS 07/28/20 [History Last Taken Unknown] nitrofurantoin monohydrate/macrocrystals 100 mg capsule (Macrobid) 100 mg PO PRN PRN uti 07/28/20 [History Last Taken Unknown] prednisolone sodium phosphate 1 % eye drops 1 drp ophthalmic (eye) BID PRN eye 07/28/20 [History Last Taken Unknown] prednisone 5 mg tablet 2.5 mg PO DAILY 07/28/20 [History Last Taken Unknown] propylene glycol 0.6 % eye drops (Systane Balance) 1 drp ophthalmic (eye) DAILY PRN Dry Eye 07/28/20 [History Last Taken Unknown] psyllium husk 6 gram/6 gram oral powder (Natural Fiber Supplement) 1 tbsp PO DAILY 07/28/20 [History Last Taken Unknown] sumatriptan succinate 50 mg tablet 50 mg PO .prn PRN migraines 07/28/20 [History Last Taken Unknown] meclizine 50 mg tablet (Antivert) 50 mg PO BID #10 tabs 01/19/21 [Rx Last Taken Unknown] enoxaparin 100 mg/mL subcutaneous syringe (Lovenox) 100 mg subcut DAILY 1 day #1 mL 07/01/23 [Rx Last Taken Unknown] warfarin 7.5 mg tablet 7.5 mg PO DAILY 07/01/23 [History Last Taken Unknown] Allergy/AdvReac Type Severity Reaction Status Date / Time amoxicillin Allergy Hives Verified 07/01/23 19:52 bee venom protein (honey bee) Allergy Hives Verified 07/01/23 19:52 black pepper Allergy Food Verified 07/01/23 19:52 Allergy cefaclor [From Ceclor] Allergy Hives Verified 07/01/23 19:52 ciprofloxacin [From Cipro] Allergy Hives Verified 07/01/23 19:52 clavulanic acid Allergy Hives Verified 07/01/23 19:52 [From Augmentin] dog dander Allergy Itching Verified 07/01/23 19:52 erythromycin base Allergy Hives Verified 07/01/23 19:52 grass pollen Allergy Itching Verified 07/01/23 19:52 horse dander Allergy Itching Verified 07/01/23 19:52 latex Allergy Rash Verified 07/01/23 19:52 silicone Allergy Other Verified 07/01/23 19:52 soap Allergy Angioedema Verified 07/01/23 19:52 sulfamethoxazole Allergy Swelling Verified 07/01/23 19:52 [From Bactrim] trimethoprim [From Bactrim] Allergy Swelling Verified 07/01/23 19:52 vancomycin Allergy Shortness Verified 07/01/23 19:52 of breath wheat Allergy Food Verified 07/01/23 19:52 Allergy Family History Father CVA (cerebral vascular accident) Bleeding disorder Surgical History S/P hysterectomy S/P laparoscopic cholecystectomy S/P sinus surgery Social History Smoking Status: Never smoker alcohol intake: never ROS ROS ED Constitutional Constitutional ED: Denies chills, fever(s) or weight loss Eyes Eyes: Denies change in vision or diplopia ENT ENT ED: Reports sore throat and other Details: Nasal congestion ; Denies ear pain or rhinorrhea Cardiovascular Cardiovascular: Denies chest pain, orthopnea, palpitations or racing heartbeat Respiratory/Chest Respiratory/Chest: Reports cough and dyspnea; Denies orthopnea Gastrointestinal Gastrointestinal: Denies abdominal pain, diarrhea, nausea or vomiting Genitourinary Genitourinary ED: Denies dysuria, hematuria or urinary frequency Musculoskeletal Musculoskeletal: Reports back pain; Denies arthralgias or myalgias Integumentary Denies abscess or rash Neurologic Neurologic: Denies headache(s) or weakness Psychiatric Psychiatric: Denies anxiety, depression, suicidal ideation or suicidal thoughts Endocrine Endocrinology: Denies polydipsia, polyphagia or polyuria Allergic/Immunologic Allergic/Immunologic ED: Denies mouth swelling, tongue swelling or urticaria EXAM Physical Exam Const Vital Signs: 07/01/23 19:52 07/01/23 20:37 07/01/23 20:40 Temperature 97.7 F L Temperature Source Temporal Pulse Rate 99 96 Respiratory Rate 18 16 Respiratory Depth Normal Respiratory Pattern Normal Blood Pressure 117/71 107/66 Blood Pressure Mean 86 79 Pulse Ox 96 95 Oxygen Delivery Method Room Air Room Air 07/01/23 20:40 07/01/23 21:15 07/01/23 21:50 Temperature 100.1 F H Temperature Source Oral Pulse Rate 105 H 97 Respiratory Rate 22 H 18 Respiratory Depth Respiratory Pattern Blood Pressure 107/66 108/65 Blood Pressure Mean 79 79 Pulse Ox 95 93 94 Oxygen Delivery Method Room Air Room Air Room Air Positive well nourished and well developed General Appearance ED: well developed HEENT Reports normocephalic, head/scalp atraumatic and moist mucous membranes Eyes PERRL and EOMs intact bilaterally Neck no lymphadenopathy, supple and no JVD Chest Wall Chest Narrative: Patient does note some tenderness along the lower ribs particularly ribs 8 9 both posteriorly and anteriorly. Resp normal respiratory effort and clear to auscultation bilaterally Cardio regular rate, regular rhythm and no murmurs GI normal to inspection, nondistended, normoactive bowel sounds and non-tender Palpation: soft Back/Spine no CVA tenderness and normal ROM Extremity normal to inspection General Extremety ED: Negative for edema General Extremity: Negative for edema Neuro oriented x3 and CN's II-XII intact bilaterally Sensorium / Orientation: alert Motor Exam: strength 5/5 throughout Psych mental status grossly normal Mood & Affect: Negative for depressed or tearful Skin no rashes or lesions noted and no wounds MDM MDM MDM Narrative Medical decision making narrative: My independent trepidation of the chest x-ray is no acute process. White count 14.5. Normal troponin at 4. Creatinine is 0.91. Glucose of 109. INR subtherapeutic at 1.6. My independent interpretation of the chest x-ray is no definitive consolidation normal mediastinal silhouette. Because of her symptoms her history of clotting disorder and a subtherapeutic INR a CTA of the chest was obtained to rule out a pulmonary embolism. This is concerning for nonocclusive clot in the left lower lung as well as potentially in the left upper lung. Given her symptomology and the history it is high likelihood that the patient does have nonocclusive PE. However her EKG shows no evidence of heart strain her troponin is normal she is not requiring supplemental oxygen. PESI score is very low risk. Patient is currently taking 7.5 mg of her Coumadin. She states the last couple months it has been very difficult for her to regulate her INR. Therefore I went to give her a dose of 1.5 mg/kg of Lovenox tonight. And have her take 15 mg dose of her Coumadin tonight and tomorrow night. Also write for her to have a another dose of Lovenox tomorrow night and she should have her INR checked on . We talked about pain medication but she states she would not take it unless she was in severe pain and I informed her that if she was having severe pain that I would want her to return to the emergency department. Patient will be talking with her doctor tomorrow. Return if worsening or concerns. History & Record Review Discussion w/independent historian: Patient and Significant other Lab Data Attestation: I reviewed the patient's lab results. Labs: Laboratory Results - last 24 hr 07/01/23 07/01/23 20:30 22:55 WBC 14.5 H RBC 4.28 Hgb 14.3 Hct 42.5 MCV 99.3 H MCH 33.4 H MCHC 33.6 RDW Std Deviation 45.7 H RDW Coeff of Jossie 12.7 Plt Count 203 MPV 10.4 Immature Gran % (Auto) 0.400 Neut % (Auto) 82.7 H Lymph % (Auto) 7.3 L [place] % (Auto) 8.2 Eos % (Auto) 1.0 Baso % (Auto) 0.4 Absolute Neuts (auto) 12.0 H Absolute Lymphs (auto) 1.05 Nucleated RBC % 0 PT 19.4 H INR 1.6 Sodium 140 Potassium 3.6 Chloride 104 Carbon Dioxide 35.0 H Anion Gap 1 L BUN 17 Creatinine 0.91 Estim Creat Clear Calc 68.73 Est GFR (MDRD) Af Amer 83 Est GFR (MDRD) Non-Af 69 BUN/Creatinine Ratio 18.8 Glucose 109 H Calcium 9.3 Troponin I High Sens 4 6 Radiography Diagnostic Testing: Clinical Impression(s) from Imaging Studies Chest X-Ray 07/01/23 20:50 IMPRESSION: Vague patchy opacities in the bilateral lung bases could represent atelectasis versus infection. Electronically Signed: Dannie Garza MD at 22:38 EST , Chest CTA 07/01/23 21:27 IMPRESSION: Questionable very small volume nonocclusive acute pulmonary emboli in the left lower lobe and upper lobe subsegmental pulmonary arteries. No evidence of right heart strain. Smooth anterior and lateral tracheal wall thickening with sparing of the posterior membranous wall and accompanying tracheal cartilage calcification extending into the bronchioles. No severe tracheal stenosis. 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 Subtle groundglass and reticular opacities in the bilateral lung bases could represent atelectasis, infection or inflammation. Electronically Signed: Dannie Garza MD at 23:13 EST , ADDENDUM: 07/01/232327 IMPRESSION: Questionable very small volume nonocclusive acute pulmonary emboli in the left lower lobe and upper lobe subsegmental pulmonary arteries. No evidence of right heart strain. Smooth anterior and lateral tracheal wall thickening with sparing of the posterior membranous wall and accompanying tracheal cartilage calcification extending into the bronchioles. No severe tracheal stenosis. 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 Subtle groundglass and reticular opacities in the bilateral lung bases could represent atelectasis, infection or inflammation. N.B. : shaorn browning OT, confirmed on 07/01/2023 23:21:53 (ET) that the healthcare facility has received the radiology report. Electronically Signed: Dannie Garza MD at 23:13 EST , EKG Initial EKG: Attestation: I personally reviewed and interpreted this EKG as follows: Comments: Normal sinus rhythm with a ventricular rate of 97 bpm. No definitive features of ACS noted Differential Diagnosis Chest pain/SOB: pulmonary embolism, ACS, pneumothorax, pneumonia, aortic dissection and CHF Discharge Plan Triage Chief Complaint: Chest Pain Other Complaint: Shortness of Breath ED Provider: Shakeel Conde Dx/Rx/DC Orders Clinical Impression: Pleuritic chest pain, Subtherapeutic anticoagulation, Pulmonary embolism Instructions: Pulmonary Embolism Prescriptions: New enoxaparin [Lovenox] 100 mg/mL syringe 100 mg subcut DAILY 1 Days Qty: 1 0RF No Action prednisone 5 mg tablet 2.5 mg PO DAILY sumatriptan succinate 50 mg tablet 50 mg PO .prn PRN (Reason: migraines) fluticasone propionate [Allergy Relief (fluticasone)] 50 mcg/actuation spray,suspension 1 spray INTRANASAL DAILY PRN (Reason: Nasal Congestion) Rx Instructions: administer into each nostril prednisolone sodium phosphate 1 % eye drops 1 % drops 1 drp OPHTHALMIC BID PRN (Reason: eye) B-complex with vitamin C [Super B Complex-Vitamin C] Tablet 1 tablet PO DAILY melatonin 5 mg capsule 5 mg PO QHS Ultra CoQ10 75 mg capsule 75 mg PO DAILY Natural Fiber Supplement 6 gram/6 gram powder 1 tbsp PO DAILY Rx Instructions: mix into at least 8 oz of water or juice before administering docusate sodium [Stool Softener] 100 mg capsule 100 mg PO DAILY nitrofurantoin monohyd/m-cryst [Macrobid] 100 mg capsule 100 mg PO PRN PRN (Reason: uti) Rx Instructions: must administer with a meal/food Systane Balance 0.6 % drops 1 drp OPHTHALMIC DAILY PRN (Reason: Dry Eye) estradiol 0.1 MG patch 0.05 mg TRANSDERM. MOFR aspirin 81 MG tablet,delayed release (DR/EC) 81 mg PO DAILY Patient Comments: stopped for surgery spironolactone 25 MG tablet 25 mg PO DAILY potassium chloride 20 MEQ tablet 20 meq PO BID methotrexate sodium 2.5 MG tablet 12.5 mg PO WIGGINS potassium citrate 10 MEQ tablet extended release 10 meq PO BID omeprazole 20 MG capsule 20 mg PO QHS folic acid 1 MG tablet 1 mg PO BID ergocalciferol (vitamin D2) 50,000 UNIT capsule 50,000 unit PO MO hydroxychloroquine 200 MG tablet 200 mg PO BID oxybutynin chloride 5 MG tablet 5 mg PO BID hydrochlorothiazide 12.5 MG tablet 12.5 mg PO DAILY levocetirizine 5 MG tablet 5 mg PO DAILY calcium carbonate-vitamin D3 1 EACH capsule 1 ea PO DAILY [id number] 1 EACH tablet 1 ea PO DAILY leucovorin calcium 5 mg tablet 25 mg PO MO meclizine [Antivert] 50 mg tablet 50 mg PO BID Qty: 10 0RF warfarin 7.5 mg tablet 7.5 mg PO DAILY Primary Care Provider: Davion Goldman Referrals: Davion Goldman MD [Primary Care Provider] - As soon as possible Activity Restrictions/Additional Instructions: Please take 15 mg of Coumadin tonight as well as tomorrow night. You will need to have your INR checked on . You are given a dose of Lovenox tonight Disposition Disposition: Home, Self Care
[2023-07-01 21:50] VITALS: BP 108/65; PULSE 97; RESP 18; TEMP 37.8; O2SAT 94
[2023-07-01 22:34] LABS: Reflex Troponin-HS? (from REC) Y
[2023-07-01 23:17] LABS: Troponin-I HS 6 pg/mL (3.0-54.0)
[2023-07-01] MEDS: Enoxaparin 100 MG/ML Syringe SC (23:49)
[2023-07-01 23:58] VITALS: BP 125/65; PULSE 95; RESP 18; TEMP 37.6; O2SAT 95
== END 2023-07-02 00:31 | disposition home or self-care (01) ==
PROVIDERS: Emergency Provider Emergency Medicine; PCP Family Medicine; Visit Provider Emergency Medicine
DX: I26.99 Other pulmonary embolism without acute cor pulmonale (principal); D68.62 Lupus anticoagulant syndrome; R09.1 Pleurisy; Z79.82 Long term (current) use of aspirin; Z79.01 Long term (current) use of anticoagulants; Z79.52 Long term (current) use of systemic steroids; Z79.899 Other long term (current) drug therapy; Z86.73 Personal history of transient ischemic attack (TIA), and cerebral infarction without residual deficits
CPT/HCPCS: 36415; 71045; 71275; 80048; 84484; 85025; 85610; 93005; 96372; 99285; Q9967; A4216

== ENCOUNTER → 2023-07-09 | Outpatient (CLI) | payer MEDICARE, SELFPAY ==
[2023-07-09 10:05] LABS: Absolute Lymphocyte Count 0.83 X10^3/uL (0.83-4.51); Absolute Neutrophil Count 4.2 X10^3/uL (2.0-7.7); Basophil# 0.04 X10^3/uL; Basophil% 0.7 % (0-1); Eosinophil# 0.07 X10^3/uL; Eosinophils% 1.3 % (0-5); Hemoglobin 15.6 g/dL (12.0-15.0); Lymphocyte # 0.83 X10^3/ul (0.83-4.51); Lymphocyte % 15.1 % (19-41); Mean Corp Hgb Conc 33.9 g/dL (32-36); Mean Corpuscular Hgb 34.4 pg (27.0-32.0); Mean Corpuscular Volume 101.5 fL (81-99); Mean Platelet Vol. 10.2 fl (6.2-12.0); Monocyte# 0.31 X10^3/uL; Monocyte% 5.7 % (0-10); NRBC Flagged by Analyzer 0 % (0-5); Neutrophil % 76.7 % (47-70); Platelet Count 307 K/mm3 (150-450); RBC Distribution Width CV 12.8 % (11.6-14.6); RBC Distribution Width SD 47.8 fl (35.1-43.9); Red Blood Count 4.53 M/mm3 (4.2-5.4); White Blood Count 5.5 K/mm3 (4.4-11.0)
[2023-07-09 10:50] LABS: ALB/GLOB Ratio 0.9 RATIO (0.9-2.4); AST(SGOT) 31 U/L (15-37); Alanine Aminotransfer ALT/SGPT 29 U/L (13-56); Albumin, Serum 3.4 g/dL (3.2-5.0); Alkaline Phosphatase 80 U/L (45-117); Anion Gap 1 (5-15); BUN 19 mg/dL (7-18); BUN/Creat Ratio 19.4 RATIO (10-20); Calcium,Total 9.2 mg/dL (8.5-10.1); Chloride 103 mmol/L (98-107); Creatinine, Serum 0.98 mg/dL (0.55-1.02); EST Glomerular Filtration Rate 63 mL/min (>60); Est Glom Filt Rate - Afr Amer 76 mL/min (>60); Globulin 3.7 g/dL (2.2-4.2); Glucose 93 mg/dL (74-106); Potassium 4.1 mmol/L (3.5-5.1); Protein, Total 7.1 g/dL (6.4-8.2); Sodium Level 140 mmol/L (136-145)
== END | disposition home or self-care (01) ==
LOC: LAB 09:38
PROVIDERS: PCP Family Medicine; Referring Provider Internal Medicine Rheumatology; Visit Provider Internal Medicine Rheumatology
DX: M06.4 Inflammatory polyarthropathy (principal); M35.00 Sjogren syndrome, unspecified; D68.8 Other specified coagulation defects; N20.0 Calculus of kidney; E87.6 Hypokalemia; Z87.11 Personal history of peptic ulcer disease; Z79.899 Other long term (current) drug therapy
CPT/HCPCS: 36415; 80053; 85025

== ENCOUNTER 2023-07-14 11:39 | Emergency (ER) | payer MEDICARE, SELFPAY ==
[2023-07-14 11:40] VITALS: BP 114/72; PULSE 82; RESP 18; TEMP 35.8; O2SAT 98; BMI 21.9
--- NOTE | 2023-07-14 11:56 | CT_ITS ---
STUDY: CTA CHEST REASON FOR EXAM: Female, 53 years old. Pulmonary embolism. Right-sided chest pain. RADIATION DOSAGE (If Supplied By Facility): CTDIvol = ( 5.18 ) mGy, DLP = ( 158.88 ) mGycm TECHNIQUE: The examination was performed with the intravenous administration of IV 100mL Isovue-370. Post-processing of the angiographic images was performed, with multiplanar reformation and 3D reconstruction. Individualized dose optimization techniques were used for this CT. COMPARISON: Comparison is made with prior study dated July 01, 2023. FINDINGS: Normal enhancement of the main pulmonary artery and right and left pulmonary arteries. Normal enhancement of the bilateral peripheral pulmonary arteries. There is no demonstrated pulmonary embolism. There is atherosclerotic calcification of the aortic arch with tortuosity. There is no demonstrated aortic dissection. Normal heart and pericardium. Normal mediastinum. Small right hilar lymph node. This is unchanged. Normal visualized trachea and bronchi. The lungs are well expanded. Normal pulmonary parenchyma. Normal pleura. Normal chest wall structures. There are mild degenerative changes of thoracic spine. Normal visualized upper abdomen. CT/CTA Chest W/WO Contrast IMPRESSION: No evidence of pulmonary embolism. Electronically Signed: Girma Jean-Baptiste MD at 12:52 EDT ,
--- NOTE | 2023-07-14 11:56 | EKG12_ITS ---
Test Reason : CHEST PAIN Blood Pressure : / mmHG Vent. Rate : 067 BPM Atrial Rate : 067 BPM P-R Int : 118 ms QRS Dur : 070 ms QT Int : 400 ms P-R-T Axes : 075 054 058 degrees QTc Int : 422 ms Normal sinus rhythm Normal ECG Confirmed by KYARA CHA, RAMIN ([id number]), international editorial producer DAMARIS MENDEZ ([id number]) on 07/15/2023 7:59:19 AM Referred By: Confirmed By:RAMIN SPARROW MD
--- NOTE | 2023-07-14 12:01 | EX.ED.DYSGE1 ---
HPI History of Present Illness Chief Complaint: Chest Pain Informant: patient Onset/Context/Timing Onset: Weeks Narrative Narrative: Patient presents secondary to continued URI symptoms and chest pain. She has had URI symptoms for the past 3 to 4 weeks. Although she tested negative for COVID she was exposed to people who did test positive and states that she has had similar symptoms in the past with COVID. She was seen about 2 weeks ago with left-sided chest pain and was found to have 2 possible small nonocclusive pulmonary emboli. 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 She returns today saying that she still feels ill despite completing a course of doxycycline recently and now has some pain on her right side as well. [facility] Medical History Arthritis Bleeding gastric ulcer Blood clotting disorder CVA (cerebral vascular accident) GERD (gastroesophageal reflux disease) Lupus (systemic lupus erythematosus) Rectal bleeding Sjogren's disease SOB (shortness of breath) TIA (transient ischemic attack) Home Medications aspirin 81 mg tablet,delayed release 81 mg PO DAILY blood thinner 02/05/19 [History Last Taken 02/04/19] calcium carbonate 600 mg-vitamin D3 12.5 mcg (500 unit) capsule 1 ea PO DAILY supplement 02/05/19 [History Last Taken Unknown] ergocalciferol (vitamin D2) 1,250 mcg (50,000 unit) capsule 50,000 unit PO MO 02/05/19 [History Last Taken Unknown] estradiol 0.1 mg/24 hr semiweekly transdermal patch 0.05 mg TRANSDERM. MOFR 02/05/19 [History Last Taken Unknown] folic acid 1 mg tablet 1 mg PO BID 02/05/19 [History Last Taken Unknown] hydrochlorothiazide 12.5 mg tablet 12.5 mg PO DAILY 02/05/19 [History Last Taken Unknown] hydroxychloroquine 200 mg tablet 200 mg PO BID 02/05/19 [History Last Taken Unknown] levocetirizine 5 mg tablet 5 mg PO DAILY 02/05/19 [History Last Taken Unknown] methotrexate sodium 2.5 mg tablet 12.5 mg PO WIGGINS 02/05/19 [History Last Taken 02/07/19 08:00] multivit-iron 18 mg-folic acid 400 mcg-calcium 500 mg-minerals tablet 1 ea PO DAILY 02/05/19 [History Last Taken Unknown] omeprazole 20 mg capsule,delayed release 20 mg PO QHS GERD 02/05/19 [History Last Taken Unknown] oxybutynin chloride 5 mg tablet 5 mg PO BID 02/05/19 [History Last Taken Unknown] potassium chloride 20 mEq tablet,extended release(part/cryst) 20 meq PO BID 02/05/19 [History Last Taken Unknown] potassium citrate 10 mEq (1,080 mg) tablet,extended release 10 meq PO BID 02/05/19 [History Last Taken Unknown] spironolactone 25 mg tablet 25 mg PO DAILY 02/05/19 [History Last Taken Unknown] B-complex with vitamin C (Super B Complex-Vitamin C tablet) 1 tablet PO DAILY 07/28/20 [History Last Taken Unknown] coenzyme Q10 75 mg capsule (Ultra CoQ10) 75 mg PO DAILY 07/28/20 [History Last Taken Unknown] docusate sodium 100 mg capsule (Stool Softener) 100 mg PO DAILY 07/28/20 [History Last Taken Unknown] fluticasone propionate 50 mcg/actuation nasal spray,suspension (Allergy Relief (fluticasone)) 1 spray intranasal DAILY PRN Nasal Congestion 07/28/20 [History Last Taken Unknown] leucovorin calcium 5 mg tablet 25 mg PO MO 07/28/20 [History Last Taken Unknown] melatonin 5 mg capsule 5 mg PO QHS 07/28/20 [History Last Taken Unknown] nitrofurantoin monohydrate/macrocrystals 100 mg capsule (Macrobid) 100 mg PO PRN PRN uti 07/28/20 [History Last Taken Unknown] prednisolone sodium phosphate 1 % eye drops 1 drp ophthalmic (eye) BID PRN eye 07/28/20 [History Last Taken Unknown] prednisone 5 mg tablet 2.5 mg PO DAILY 07/28/20 [History Last Taken Unknown] propylene glycol 0.6 % eye drops (Systane Balance) 1 drp ophthalmic (eye) DAILY PRN Dry Eye 07/28/20 [History Last Taken Unknown] psyllium husk 6 gram/6 gram oral powder (Natural Fiber Supplement) 1 tbsp PO DAILY 07/28/20 [History Last Taken Unknown] sumatriptan succinate 50 mg tablet 50 mg PO .prn PRN migraines 07/28/20 [History Last Taken Unknown] meclizine 50 mg tablet (Antivert) 50 mg PO BID #10 tabs 01/19/21 [Rx Last Taken Unknown] enoxaparin 100 mg/mL subcutaneous syringe (Lovenox) 100 mg subcut DAILY 1 day #1 mL 07/01/23 [Rx Last Taken Unknown] warfarin 7.5 mg tablet 7.5 mg PO DAILY 07/01/23 [History Last Taken Unknown] Allergy/AdvReac Type Severity Reaction Status Date / Time amoxicillin Allergy Hives Verified 07/14/23 11:42 bee venom protein (honey bee) Allergy Hives Verified 07/14/23 11:42 black pepper Allergy Food Verified 07/14/23 11:42 Allergy cefaclor [From Ceclor] Allergy Hives Verified 07/14/23 11:42 ciprofloxacin [From Cipro] Allergy Hives Verified 07/14/23 11:42 clavulanic acid Allergy Hives Verified 07/14/23 11:42 [From Augmentin] dog dander Allergy Itching Verified 07/14/23 11:42 erythromycin base Allergy Hives Verified 07/14/23 11:42 grass pollen Allergy Itching Verified 07/14/23 11:42 horse dander Allergy Itching Verified 07/14/23 11:42 latex Allergy Rash Verified 07/14/23 11:42 silicone Allergy Other Verified 07/14/23 11:42 soap Allergy Angioedema Verified 07/14/23 11:42 sulfamethoxazole Allergy Swelling Verified 07/14/23 11:42 [From Bactrim] trimethoprim [From Bactrim] Allergy Swelling Verified 07/14/23 11:42 vancomycin Allergy Shortness Verified 07/14/23 11:42 of breath wheat Allergy Food Verified 07/14/23 11:42 Allergy Family History Father CVA (cerebral vascular accident) Bleeding disorder Surgical History S/P hysterectomy S/P laparoscopic cholecystectomy S/P sinus surgery Social History Smoking Status: Never smoker alcohol intake: never ROS ROS ED Constitutional Constitutional ED: Denies chills or fever(s) Eyes Eyes: Denies change in vision or discharge from eye(s) ENT ENT ED: Denies discharge from eye(s), rhinorrhea or sore throat Cardiovascular Cardiovascular: Reports chest pain; Denies palpitations Respiratory/Chest Respiratory/Chest: Reports cough and dyspnea Gastrointestinal Gastrointestinal: Denies abdominal pain, nausea or vomiting Genitourinary Genitourinary ED: Denies dysuria Musculoskeletal Musculoskeletal: Denies back pain or extremity pain Integumentary Denies Abrasions or rash Neurologic Neurologic: Denies headache(s) or weakness Psychiatric Psychiatric: Denies anxiety or depression Allergic/Immunologic Allergic/Immunologic ED: Denies lip swelling or urticaria EXAM Physical Exam Const Vital Signs: 07/14/23 11:40 07/14/23 11:50 07/14/23 12:42 Temperature 96.5 F L Temperature Source Temporal Pulse Rate 82 Respiratory Rate 18 Respiratory Effort Normal Non-Labored Blood Pressure 114/72 Blood Pressure Mean 86 Pulse Ox 98 Oxygen Delivery Method Room Air Room Air Positive well nourished and well developed General Appearance ED: well developed HEENT Reports moist mucous membranes Eyes EOMs intact bilaterally Chest Wall inspection of chest normal and palpation of chest normal Resp normal respiratory effort and clear to auscultation bilaterally Cardio regular rate and regular rhythm GI non-tender Palpation: soft Extremity normal to inspection Neuro oriented x3 and no sensory deficits noted Motor Exam: strength 5/5 throughout Psych mental status grossly normal Skin no rashes or lesions noted MDM MDM MDM Narrative Medical decision making narrative: Patient placed on youth nutritional monitor. IV line initiated. EKG obtained to evaluate for cardiac arrhythmia/ischemia. Labwork obtained to evaluate for leukocytosis, anemia, and electrolyte derangement. 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 History & Record Review Discussion w/independent historian: Patient and Significant other Additional record(s) reviewed:: Prior ED visit and Prior labs Lab Data Attestation: I reviewed the patient's lab results. Labs: Laboratory Results - last 24 hr 07/14/23 12:08 WBC 9.7 RBC 4.66 Hgb 15.6 H Hct 47.1 H MCV 101.1 H MCH 33.5 H MCHC 33.1 RDW Std Deviation 48.6 H RDW Coeff of Jossie 13.0 Plt Count 282 MPV 10.1 Immature Gran % (Auto) 0.400 Neut % (Auto) 86.1 H Lymph % (Auto) 8.2 L [place] % (Auto) 4.7 Eos % (Auto) 0.3 Baso % (Auto) 0.3 Absolute Neuts (auto) 8.3 H Absolute Lymphs (auto) 0.79 L Nucleated RBC % 0 PT 27.3 H INR 2.6 Sodium 141 Potassium 4.1 Chloride 107 Carbon Dioxide 31.0 Anion Gap 3 L BUN 22 H Creatinine 1.14 H Estim Creat Clear Calc 54.86 Est GFR (MDRD) Af Amer 64 Est GFR (MDRD) Non-Af 53 L BUN/Creatinine Ratio 19.3 Glucose 109 H Calcium 9.1 Total Bilirubin 0.40 Direct Bilirubin 0.12 AST 31 ALT 27 Alkaline Phosphatase 80 Troponin I High Sens 8 Total Protein 6.6 Albumin 3.4 Globulin 3.2 Radiography Chest X-Ray - ED: 1 View, Read by ED Physician, Chronic Changes and No Infiltrates Diagnostic Testing: Clinical Impression(s) from Imaging Studies Chest CTA 07/14/23 11:56 IMPRESSION: No evidence of pulmonary embolism. Electronically Signed: Girma Jean-Baptiste MD at 12:52 EDT , Chest X-Ray 07/14/23 12:30 IMPRESSION: Hyperinflation. The lungs are clear. Electronically Signed: Girma Jean-Baptiste MD at 12:53 EDT , EKG Initial EKG: Attestation: I personally reviewed and interpreted this EKG as follows: Interpretation: Sinus Rhythm (Sinus at 67 with no acute ischemia.) Treatment and Re-Evaluation :: CBC was a white count 9.7 with a hemoglobin concentrated at 15.6. 86% neutrophils noted. INR is therapeutic at 2.6. Chemistry studies reveal a BUN of 22 and a creatinine 1.14. LFTs are unremarkable. Troponin is normal at 8. Portable chest x-ray per my interpretation reveals chronic changes with hyperinflation. No focal infiltrate. Radiology interpretation reviewed and agrees. CTA of the chest obtained. There is no evidence of pulmonary embolism at this time. Report from prior CTA was reviewed. She had 2 areas with partially obstructing PEs. Her INR was subtherapeutic at 1.6 at that time as well. Patient reassured with our findings. She will follow-up with her primary care physician as scheduled. Return instructions given. Discharge Plan Triage Chief Complaint: Chest Pain ED Provider: Leonarda Gutierrez Dx/Rx/DC Orders Clinical Impression: Chest pain Instructions: ED Chest Pain, Noncardiac Prescriptions: No Action prednisone 5 mg tablet 2.5 mg PO DAILY sumatriptan succinate 50 mg tablet 50 mg PO .prn PRN (Reason: migraines) fluticasone propionate [Allergy Relief (fluticasone)] 50 mcg/actuation spray,suspension 1 spray INTRANASAL DAILY PRN (Reason: Nasal Congestion) Rx Instructions: administer into each nostril prednisolone sodium phosphate 1 % eye drops 1 % drops 1 drp OPHTHALMIC BID PRN (Reason: eye) B-complex with vitamin C [Super B Complex-Vitamin C] Tablet 1 tablet PO DAILY melatonin 5 mg capsule 5 mg PO QHS Ultra CoQ10 75 mg capsule 75 mg PO DAILY Natural Fiber Supplement 6 gram/6 gram powder 1 tbsp PO DAILY Rx Instructions: mix into at least 8 oz of water or juice before administering docusate sodium [Stool Softener] 100 mg capsule 100 mg PO DAILY nitrofurantoin monohyd/m-cryst [Macrobid] 100 mg capsule 100 mg PO PRN PRN (Reason: uti) Rx Instructions: must administer with a meal/food Systane Balance 0.6 % drops 1 drp OPHTHALMIC DAILY PRN (Reason: Dry Eye) estradiol 0.1 MG patch 0.05 mg TRANSDERM. MOFR aspirin 81 MG tablet,delayed release (DR/EC) 81 mg PO DAILY Patient Comments: stopped for surgery spironolactone 25 MG tablet 25 mg PO DAILY potassium chloride 20 MEQ tablet 20 meq PO BID methotrexate sodium 2.5 MG tablet 12.5 mg PO WIGGINS potassium citrate 10 MEQ tablet extended release 10 meq PO BID omeprazole 20 MG capsule 20 mg PO QHS folic acid 1 MG tablet 1 mg PO BID ergocalciferol (vitamin D2) 50,000 UNIT capsule 50,000 unit PO MO hydroxychloroquine 200 MG tablet 200 mg PO BID oxybutynin chloride 5 MG tablet 5 mg PO BID hydrochlorothiazide 12.5 MG tablet 12.5 mg PO DAILY levocetirizine 5 MG tablet 5 mg PO DAILY calcium carbonate-vitamin D3 1 EACH capsule 1 ea PO DAILY [id number]-mins 1 EACH tablet 1 ea PO DAILY leucovorin calcium 5 mg tablet 25 mg PO MO meclizine [Antivert] 50 mg tablet 50 mg PO BID Qty: 10 0RF warfarin 7.5 mg tablet 7.5 mg PO DAILY enoxaparin [Lovenox] 100 mg/mL syringe 100 mg subcut DAILY 1 Days Qty: 1 0RF Primary Care Provider: Davion Goldman Referrals: Davion Goldman MD [Primary Care Provider] - 1 Week if not improving
[2023-07-14] MEDS: 0.9% Normal Saline (1000mL) 1,000 ML 150 ML IV (12:20)
[2023-07-14 12:27] LABS: Absolute Lymphocyte Count 0.79 X10^3/uL (0.83-4.51); Absolute Neutrophil Count 8.3 X10^3/uL (2.0-7.7); Basophil# 0.03 X10^3/uL; Basophil% 0.3 % (0-1); Eosinophil# 0.03 X10^3/uL; Eosinophils% 0.3 % (0-5); Hematocrit 47.1 % (37-47); Hemoglobin 15.6 g/dL (12.0-15.0); Lymphocyte # 0.79 X10^3/ul (0.83-4.51); Lymphocyte % 8.2 % (19-41); Mean Corp Hgb Conc 33.1 g/dL (32-36); Mean Corpuscular Hgb 33.5 pg (27.0-32.0); Mean Corpuscular Volume 101.1 fL (81-99); Mean Platelet Vol. 10.1 fl (6.2-12.0); Monocyte# 0.45 X10^3/uL; Monocyte% 4.7 % (0-10); NRBC Flagged by Analyzer 0 % (0-5); Neutrophil # 8.33 X10^3/uL (2.7-7.7); Neutrophil % 86.1 % (47-70); Platelet Count 282 K/mm3 (150-450); RBC Distribution Width SD 48.6 fl (35.1-43.9); Red Blood Count 4.66 M/mm3 (4.2-5.4); White Blood Count 9.7 K/mm3 (4.4-11.0)
--- NOTE | 2023-07-14 12:30 | RAD_ITS ---
STUDY: X-RAY CHEST REASON FOR EXAM: Female, 53 years old. Chest pain TECHNIQUE: Single AP portable view of the chest. COMPARISON: Comparison is made with prior chest radiograph dated July 01, 2023. FINDINGS: EKG electrodes are seen. Hyperinflation. The lungs are clear. There is no demonstrated pleural abnormality. Normal size heart. Normal mediastinum and kristy. Normal visualized pulmonary arteries. Normal visualized aortic arch and descending thoracic aorta. There are degenerative changes of the visualized thoracic spine. Normal visualized ribs, clavicles, and shoulders. There is no demonstrated abnormality of the visualized soft tissue structures of the upper abdomen. RAD/Chest 1 View (Portable) IMPRESSION: Hyperinflation. The lungs are clear. Electronically Signed: Girma Jean-Baptiste MD at 12:53 EDT ,
[2023-07-14 12:40] LABS: International Normalized Ratio 2.6; Prothrombin Time (Protime)PT. 27.3 SECONDS (11.7-14.9)
[2023-07-14 12:44] LABS: AST(SGOT) 31 U/L (15-37); Alanine Aminotransfer ALT/SGPT 27 U/L (13-56); Albumin, Serum 3.4 g/dL (3.2-5.0); Alkaline Phosphatase 80 U/L (45-117); Anion Gap 3 (5-15); BUN 22 mg/dL (7-18); BUN/Creat Ratio 19.3 RATIO (10-20); Bilirubin, Direct 0.12 mg/dL (0.00-0.30); Calcium,Total 9.1 mg/dL (8.5-10.1); Chloride 107 mmol/L (98-107); Creatinine, Serum 1.14 mg/dL (0.55-1.02); EST Glomerular Filtration Rate 53 mL/min (>60); Est Glom Filt Rate - Afr Amer 64 mL/min (>60); Estimated Creatinine Clearance 54.86 ml/min; Globulin 3.2 g/dL (2.2-4.2); Glucose 109 mg/dL (74-106); Potassium 4.1 mmol/L (3.5-5.1); Protein, Total 6.6 g/dL (6.4-8.2); Sodium Level 141 mmol/L (136-145); Troponin-I HS (w/2H Reflex) 8 pg/mL (3.0-54.0)
[2023-07-14 13:19] VITALS: BP 97/63; PULSE 73; RESP 15; TEMP 36.8; O2SAT 98
[2023-07-14 14:14] LABS: Reflex Troponin-HS? (from REC) Y
== END 2023-07-14 13:26 | disposition home or self-care (01) ==
PROVIDERS: Emergency Provider Emergency Medicine; PCP Family Medicine; Visit Provider Emergency Medicine
DX: R07.9 Chest pain, unspecified (principal); D68.9 Coagulation defect, unspecified; Z79.01 Long term (current) use of anticoagulants; Z86.73 Personal history of transient ischemic attack (TIA), and cerebral infarction without residual deficits; Z79.82 Long term (current) use of aspirin; K21.9 Gastro-esophageal reflux disease without esophagitis; Z79.899 Other long term (current) drug therapy; Z90.710 Acquired absence of both cervix and uterus; Z90.49 Acquired absence of other specified parts of digestive tract
CPT/HCPCS: 71045; 71275; 80048; 80076; 84484; 85025; 85610; 93005; 99283; J7030; Q9967; A4216

== ENCOUNTER → 2023-10-06 | Outpatient (CLI) | payer MEDICARE, SELFPAY ==
[2023-10-06 13:18] LABS: Absolute Neutrophil Count 3.3 X10^3/uL (2.0-7.7); Basophil# 0.03 X10^3/uL; Basophil% 0.6 % (0-1); Eosinophil# 0.08 X10^3/uL; Eosinophils% 1.6 % (0-5); Hematocrit 47.9 % (37-47); Hemoglobin 15.4 g/dL (12.0-15.0); Lymphocyte % 23.4 % (19-41); Mean Corp Hgb Conc 32.2 g/dL (32-36); Mean Corpuscular Hgb 32.9 pg (27.0-32.0); Mean Corpuscular Volume 102.4 fL (81-99); Mean Platelet Vol. 11.7 fl (6.2-12.0); Monocyte# 0.47 X10^3/uL; Monocyte% 9.2 % (0-10); NRBC Flagged by Analyzer 0 % (0-5); Neutrophil # 3.33 X10^3/uL (2.7-7.7); Neutrophil % 64.8 % (47-70); Platelet Count 152 K/mm3 (150-450); RBC Distribution Width CV 13.4 % (11.6-14.6); RBC Distribution Width SD 51.1 fl (35.1-43.9); Red Blood Count 4.68 M/mm3 (4.2-5.4); White Blood Count 5.1 K/mm3 (4.4-11.0)
[2023-10-06 13:51] LABS: ALB/GLOB Ratio 1.3 RATIO (0.9-2.4); AST(SGOT) 37 U/L (15-37); Alanine Aminotransfer ALT/SGPT 31 U/L (13-56); Albumin, Serum 3.8 g/dL (3.2-5.0); Alkaline Phosphatase 70 U/L (45-117); Anion Gap 1 (5-15); BUN 14 mg/dL (7-18); BUN/Creat Ratio 14.6 RATIO (10-20); Calcium,Total 9.6 mg/dL (8.5-10.1); Chloride 106 mmol/L (98-107); Creatinine, Serum 0.96 mg/dL (0.55-1.02); EST Glomerular Filtration Rate 64 mL/min (>60); Est Glom Filt Rate - Afr Amer 78 mL/min (>60); Globulin 2.9 g/dL (2.2-4.2); Glucose 91 mg/dL (74-106); Potassium 3.9 mmol/L (3.5-5.1); Protein, Total 6.7 g/dL (6.4-8.2); Sodium Level 139 mmol/L (136-145)
== END | disposition home or self-care (01) ==
LOC: LAB 12:54
PROVIDERS: PCP Family Medicine; Referring Provider Internal Medicine Rheumatology; Visit Provider Internal Medicine Rheumatology
DX: M06.4 Inflammatory polyarthropathy (principal); Z79.899 Other long term (current) drug therapy; M35.00 Sjogren syndrome, unspecified
CPT/HCPCS: 36415; 80053; 85025

== ENCOUNTER → 2024-01-02 | Outpatient (CLI) | payer MEDICARE, SELFPAY ==
[2024-01-02 11:07] LABS: Absolute Neutrophil Count 8.5 X10^3/uL (2.0-7.7); Basophil# 0.03 X10^3/uL; Basophil% 0.3 % (0-1); Eosinophil# 0.02 X10^3/uL; Eosinophils% 0.2 % (0-5); Hematocrit 51.6 % (37-47); Hemoglobin 16.9 g/dL (12.0-15.0); Lymphocyte % 7.3 % (19-41); Mean Corp Hgb Conc 32.8 g/dL (32-36); Mean Corpuscular Hgb 33.1 pg (27.0-32.0); Mean Corpuscular Volume 101.2 fL (81-99); Mean Platelet Vol. 10.3 fl (6.2-12.0); Monocyte# 0.29 X10^3/uL; NRBC Flagged by Analyzer 0 % (0-5); Neutrophil # 8.53 X10^3/uL (2.7-7.7); Neutrophil % 88.7 % (47-70); Platelet Count 209 K/mm3 (150-450); RBC Distribution Width CV 13.2 % (11.6-14.6); RBC Distribution Width SD 50.2 fl (35.1-43.9); White Blood Count 9.6 K/mm3 (4.4-11.0)
[2024-01-02 11:36] LABS: ALB/GLOB Ratio 1.1 RATIO (0.9-2.4); AST(SGOT) 35 U/L (15-37); Alanine Aminotransfer ALT/SGPT 35 U/L (13-56); Albumin, Serum 3.8 g/dL (3.2-5.0); Alkaline Phosphatase 68 U/L (45-117); Anion Gap 2 (5-15); BUN 23 mg/dL (7-18); Chloride 106 mmol/L (98-107); EST Glomerular Filtration Rate 61 mL/min (>60); Est Glom Filt Rate - Afr Amer 74 mL/min (>60); Globulin 3.4 g/dL (2.2-4.2); Glucose 101 mg/dL (74-106); Potassium 4.2 mmol/L (3.5-5.1); Protein, Total 7.2 g/dL (6.4-8.2); Sodium Level 139 mmol/L (136-145)
== END | disposition home or self-care (01) ==
PROVIDERS: PCP Family Medicine; Referring Provider Internal Medicine Rheumatology; Visit Provider Internal Medicine Rheumatology
DX: M06.4 Inflammatory polyarthropathy (principal); M35.00 Sjogren syndrome, unspecified; Z79.899 Other long term (current) drug therapy
CPT/HCPCS: 36415; 80053; 85025

== ENCOUNTER → 2024-03-23 | Outpatient (CLI) | payer MEDICARE, SELFPAY ==
[2024-03-23 15:47] LABS: Absolute Lymphocyte Count 1.31 X10^3/uL (0.83-4.51); Absolute Neutrophil Count 3.9 X10^3/uL (2.0-7.7); Basophil# 0.03 X10^3/uL; Basophil% 0.5 % (0-1); Eosinophil# 0.11 X10^3/uL; Eosinophils% 1.9 % (0-5); Hematocrit 47.7 % (37-47); Hemoglobin 15.7 g/dL (12.0-15.0); Lymphocyte # 1.31 X10^3/ul (0.83-4.51); Lymphocyte % 22.9 % (19-41); Mean Corp Hgb Conc 32.9 g/dL (32-36); Mean Corpuscular Hgb 33.9 pg (27.0-32.0); Mean Platelet Vol. 10.6 fl (6.2-12.0); NRBC Flagged by Analyzer 0 % (0-5); Neutrophil # 3.86 X10^3/uL (2.7-7.7); Neutrophil % 67.5 % (47-70); Platelet Count 200 K/mm3 (150-450); RBC Distribution Width CV 13.1 % (11.6-14.6); Red Blood Count 4.63 M/mm3 (4.2-5.4); White Blood Count 5.7 K/mm3 (4.4-11.0)
[2024-03-23 16:15] LABS: ALB/GLOB Ratio 1.1 RATIO (0.9-2.4); AST(SGOT) 39 U/L (15-37); Alanine Aminotransfer ALT/SGPT 32 U/L (13-56); Albumin, Serum 3.6 g/dL (3.2-5.0); Alkaline Phosphatase 72 U/L (45-117); Anion Gap 6 (5-15); BUN 15 mg/dL (7-18); Calcium,Total 9.1 mg/dL (8.5-10.1); Chloride 104 mmol/L (98-107); Creatinine, Serum 0.88 mg/dL (0.55-1.02); EST Glomerular Filtration Rate 71 mL/min (>60); Est Glom Filt Rate - Afr Amer 86 mL/min (>60); Globulin 3.2 g/dL (2.2-4.2); Glucose 78 mg/dL (74-106); Potassium 3.3 mmol/L (3.5-5.1); Protein, Total 6.8 g/dL (6.4-8.2); Sodium Level 141 mmol/L (136-145)
== END | disposition home or self-care (01) ==
LOC: LAB 14:47
PROVIDERS: PCP Family Medicine; Referring Provider Internal Medicine Rheumatology; Visit Provider Internal Medicine Rheumatology
DX: M06.4 Inflammatory polyarthropathy (principal); Z79.899 Other long term (current) drug therapy
CPT/HCPCS: 36415; 80053; 85025

== ENCOUNTER → 2024-06-17 | Outpatient (CLI) | payer MEDICARE, SELFPAY ==
[2024-06-17 10:14] LABS: Absolute Lymphocyte Count 1.18 X10^3/uL (0.83-4.51); Absolute Neutrophil Count 4.3 X10^3/uL (2.0-7.7); Basophil# 0.03 X10^3/uL; Basophil% 0.5 % (0-1); Eosinophil# 0.07 X10^3/uL; Eosinophils% 1.1 % (0-5); Hemoglobin 15.5 g/dL (12.0-15.0); Lymphocyte # 1.18 X10^3/ul (0.83-4.51); Mean Corpuscular Hgb 33.4 pg (27.0-32.0); Mean Corpuscular Volume 101.3 fL (81-99); Mean Platelet Vol. 10.6 fl (6.2-12.0); Monocyte# 0.62 X10^3/uL; NRBC Flagged by Analyzer 0 % (0-5); Neutrophil # 4.31 X10^3/uL (2.7-7.7); Neutrophil % 69.2 % (47-70); Platelet Count 187 K/mm3 (150-450); RBC Distribution Width CV 13.2 % (11.6-14.6); RBC Distribution Width SD 49.5 fl (35.1-43.9); Red Blood Count 4.64 M/mm3 (4.2-5.4); White Blood Count 6.2 K/mm3 (4.4-11.0)
[2024-06-17 10:47] LABS: ALB/GLOB Ratio 1.1 RATIO (0.9-2.4); AST(SGOT) 39 U/L (15-37); Alanine Aminotransfer ALT/SGPT 35 U/L (13-56); Albumin, Serum 3.6 g/dL (3.2-5.0); Alkaline Phosphatase 62 U/L (45-117); Anion Gap 4 (5-15); BUN 15 mg/dL (7-18); Calcium,Total 9.1 mg/dL (8.5-10.1); Chloride 105 mmol/L (98-107); Creatinine, Serum 0.94 mg/dL (0.55-1.02); EST Glomerular Filtration Rate 66 mL/min (>60); Est Glom Filt Rate - Afr Amer 80 mL/min (>60); Globulin 3.2 g/dL (2.2-4.2); Glucose 85 mg/dL (74-106); Potassium 3.7 mmol/L (3.5-5.1); Protein, Total 6.8 g/dL (6.4-8.2); Sodium Level 140 mmol/L (136-145)
== END | disposition home or self-care (01) ==
LOC: LAB 09:42
PROVIDERS: PCP Family Medicine; Referring Provider Internal Medicine Rheumatology; Visit Provider Internal Medicine Rheumatology
DX: M06.4 Inflammatory polyarthropathy (principal); Z79.899 Other long term (current) drug therapy
CPT/HCPCS: 36415; 80053; 85025

== ENCOUNTER → 2024-09-14 | Outpatient (CLI) | payer MEDICARE, SELFPAY ==
[2024-09-14 10:06] LABS: Absolute Lymphocyte Count 0.87 X10^3/uL (0.83-4.51); Absolute Neutrophil Count 4.3 X10^3/uL (2.0-7.7); Basophil# 0.03 X10^3/uL; Basophil% 0.5 % (0-1); Eosinophil# 0.09 X10^3/uL; Eosinophils% 1.6 % (0-5); Hematocrit 46.6 % (37-47); Hemoglobin 16.3 g/dL (12.0-15.0); Lymphocyte # 0.87 X10^3/ul (0.83-4.51); Lymphocyte % 15.3 % (19-41); Mean Corpuscular Hgb 35.7 pg (27.0-32.0); Mean Corpuscular Volume 102.2 fL (81-99); Monocyte# 0.41 X10^3/uL; Monocyte% 7.2 % (0-10); NRBC Flagged by Analyzer 0 % (0-5); Neutrophil # 4.27 X10^3/uL (2.7-7.7); Neutrophil % 75.2 % (47-70); Platelet Count 168 K/mm3 (150-450); RBC Distribution Width CV 12.7 % (11.6-14.6); RBC Distribution Width SD 48.4 fl (35.1-43.9); Red Blood Count 4.56 M/mm3 (4.2-5.4); White Blood Count 5.7 K/mm3 (4.4-11.0)
[2024-09-14 11:17] LABS: ALB/GLOB Ratio 1.8 RATIO (0.9-2.4); AST(SGOT) 40 U/L (<=31); Alanine Aminotransfer ALT/SGPT 22 U/L (<=34); Albumin, Serum 4.2 g/dL (3.5-5.0); Alkaline Phosphatase 68 U/L (35-104); Anion Gap 10 (5-15); BUN 19 mg/dL (4-19); BUN/Creat Ratio 20.2 RATIO (10-20); Calcium,Total 9.5 mg/dL (7.6-11.0); Chloride 102 mmol/L (98-108); Creatinine, Serum 0.96 mg/dL (0.70-1.20); EST Glomerular Filtration Rate 70 (>60); Globulin 2.4 g/dL (2.2-4.2); Glucose 96 mg/dL (70-99); Potassium 4.1 mmol/L (3.3-5.1); Protein, Total 6.6 g/dL (5.9-8.4); Sodium Level 141 mmol/L (133-145); Total Bilirubin 0.35 mg/dL (0.00-1.30)
== END | disposition home or self-care (01) ==
LOC: LAB 09:30
PROVIDERS: PCP Family Medicine; Referring Provider Internal Medicine Rheumatology; Visit Provider Internal Medicine Rheumatology
DX: M06.4 Inflammatory polyarthropathy (principal); Z79.899 Other long term (current) drug therapy
CPT/HCPCS: 36415; 80053; 85025

== ENCOUNTER → 2024-12-09 | Outpatient (CLI) | payer MEDICARE, SELFPAY ==
[2024-12-09 13:14] LABS: Hematocrit 45.6 % (37-47); Hemoglobin 15.5 g/dL (12.0-15.0); Immature Granulocytes Count 0.010 X10^3/uL (0.0-0.0); Mean Corp Hgb Conc 34.0 g/dL (32-36); Mean Corpuscular Volume 99.8 fL (81-99); Mean Platelet Vol. 11.0 fl (6.2-12.0); NRBC Flagged by Analyzer 0 % (0-5); Platelet Count 196 K/mm3 (150-450); RBC Distribution Width CV 13.2 % (11.6-14.6); RBC Distribution Width SD 48.7 fl (35.1-43.9); Red Blood Count 4.57 M/mm3 (4.2-5.4); White Blood Count 5.5 K/mm3 (4.4-11.0)
[2024-12-09 13:44] LABS: AST(SGOT) 36 U/L (<=31); Alanine Aminotransfer ALT/SGPT 21 U/L (<=34); Albumin, Serum 4.1 g/dL (3.5-5.0); Alkaline Phosphatase 68 U/L (35-104); Anion Gap 10 (5-15); BUN 17 mg/dL (4-19); BUN/Creat Ratio 15.2 RATIO (10-20); Calcium,Total 9.8 mg/dL (7.6-11.0); Carbon Dioxide 28.3 mmol/L (21.0-32.0); Chloride 103 mmol/L (98-108); Globulin 2.3 g/dL (2.2-4.2); Glucose 100 mg/dL (70-99); Potassium 4.4 mmol/L (3.3-5.1)
== END | disposition home or self-care (01) ==
LOC: LAB 11:37
PROVIDERS: PCP Family Medicine; Referring Provider Internal Medicine Rheumatology; Visit Provider Internal Medicine Rheumatology
DX: M06.4 Inflammatory polyarthropathy (principal); M35.00 Sjogren syndrome, unspecified; Z79.899 Other long term (current) drug therapy
CPT/HCPCS: 36415; 80053; 85025

== ENCOUNTER → 2025-03-10 | Outpatient (CLI) | payer MEDICARE, SELFPAY ==
[2025-03-10 13:41] LABS: Hematocrit 45.4 % (37-47); Hemoglobin 15.1 g/dL (12.0-15.0); Immature Granulocytes Count 0.020 X10^3/uL (0.0-0.0); Mean Corp Hgb Conc 33.3 g/dL (32-36); Mean Corpuscular Volume 101.1 fL (81-99); Mean Platelet Vol. 12.3 fl (6.2-12.0); NRBC Flagged by Analyzer 0 % (0-5); POSITIVE DIFFERENTIAL YES; Platelet Count 137 K/mm3 (150-450); RBC Distribution Width CV 13.2 % (11.6-14.6); RBC Distribution Width SD 49.7 fl (35.1-43.9); Red Blood Count 4.49 M/mm3 (4.2-5.4); White Blood Count 6.8 K/mm3 (4.4-11.0)
[2025-03-10 14:46] LABS: AST(SGOT) 50 U/L (<=31); Alanine Aminotransfer ALT/SGPT 32 U/L (<=34); Albumin, Serum 4.2 g/dL (3.5-5.0); Alkaline Phosphatase 70 U/L (35-104); Anion Gap 8 (5-15); BUN 14 mg/dL (4-19); BUN/Creat Ratio 15.9 RATIO (10-20); Calcium,Total 9.4 mg/dL (7.6-11.0); Carbon Dioxide 29.4 mmol/L (21.0-32.0); Chloride 102 mmol/L (98-108); Globulin 2.1 g/dL (2.2-4.2); Glucose 114 mg/dL (70-99); Potassium 4.3 mmol/L (3.3-5.1)
== END | disposition home or self-care (01) ==
LOC: LAB 13:21
PROVIDERS: PCP Family Medicine; Referring Provider Internal Medicine Rheumatology; Visit Provider Internal Medicine Rheumatology
DX: M06.4 Inflammatory polyarthropathy (principal); M35.00 Sjogren syndrome, unspecified; Z79.899 Other long term (current) drug therapy
CPT/HCPCS: 36415; 80053; 85025

== ENCOUNTER → 2025-03-18 | Outpatient (CLI) | payer MEDICARE, SELFPAY ==
[2025-03-18 13:10] LABS: Cholesterol 183 mg/dL (<=200); Low Density Lipoprotein Calc. 106 mg/dL; Triglycerides 76 mg/dL; Very Low Density Lipoprotein 15 mg/dL (5-40); cholesterol:hdl ratio screen 2.93
== END | disposition home or self-care (01) ==
LOC: LAB 11:38
PROVIDERS: PCP Pediatrics; Referring Provider Pediatrics; Visit Provider Pediatrics
DX: Z13.1 Encounter for screening for diabetes mellitus (principal); Z13.39 Encounter for screening examination for other mental health and behavioral disorders
CPT/HCPCS: 36415; 80061; 83036; 84439; 84443